=== PATIENT | male | born 1945 | race Caucasian/White ===

== ENCOUNTER → 2017-04-02 | Outpatient (CLI) | payer MEDICARE ==
[~2017-04-02] MED LIST: AC500T PO; ACET500L36 PO; CARB400T4 PO; HYDR-3583 PO; HYDR1TAB PO; LEVE100015 PO; SULF1TAB38 PO
--- NOTE | 2017-04-02 20:42 | Diagnostic Imaging Report ---
INDICATION: Facial trauma. Fall. FINDINGS: There is no fracture seen in the mandible. The posterior aspect of the mandibular head on both sides is not well included on this exam as well as minimal portion of the undersurface of the mandibular angle. There are multiple missing teeth seen. IMPRESSION: No definite fracture identified. Dictated by: Dictated on workstation # [id number]
== END ==
LOC: RAD 09:30
PROVIDERS: ATTEND Internal Medicine
DX: S09.93XA Unspecified injury of face, initial encounter (principal); W19.XXXA Unspecified fall, initial encounter; Y99.8 Other external cause status
CPT/HCPCS: 70355

== ENCOUNTER → 2020-12-25 | Outpatient (CLI) | payer MEDICARE ==
--- NOTE | 2020-12-25 09:53 | Diagnostic Imaging Report ---
INDICATION: Postmenopausal screening COMPARISON: Baseline FINDINGS: AP Spine L1-L4: [BMD (g/cm2): 0.594] [T-Score: -5.4] [Z-Score: -4.5] [BMD Previous: NA] [BMD % Change: NA] LT Hip Neck: [BMD (g/cm2): 0.710] [T-Score: -2.8] [Z-Score: -1.1] LT Hip Total: [BMD (g/cm2):0.756] [T-Score:-2.4] [Z-Score: -1.2] [BMD Previous: NA] [BMD % Change: NA] RT Hip Neck: [BMD (g/cm2):0.669] [T-Score:-3.1] [Z-Score:-1.4] RT Hip Total: [BMD (g/cm2):0.737] [T-score:-2.5] [Z-Score:-1.3] [BMD Previous:NA] [BMD % Change:NA] *Indicates significant change from prior examination based on 95% confidence level. World Health Organization criteria for BMD interpretation classify patients as Normal (T-score at or above -1.0), Osteopenic (T-score between -1.0 and -2.5) or Osteoporotic (T-score at or below -2.5). LIMITATIONS AND MODIFICATION: None. FRACTURE RISK (FRAX SCORE): The ten year probability of (%): Major Osteoporotic Fracture: [18.6] Hip Fracture: [8.5] IMPRESSION: 1. Osteoporosis. 2. Baseline examination. 3. See below National Osteoporosis Foundation guidelines on when to potentially initiate pharmacologic therapy. Based on the National Osteoporosis Foundation Guidelines, pharmacologic treatment should be initiated in any of the following, unless clinical conditions suggest otherwise: * Any patient with prior fragility fracture of the hip or vertebrae. A spine fracture indicates 5X risk for subsequent spine fracture and 2X risk for subsequent hip fracture. * Osteoporosis (T-score <-2.5). * Postmenopausal women and men age 50 and older with low bone mass/osteopenia (T-score between -1.0 and -2.5) by DXA and 10-year major osteoporotic fracture greater than 20% or a 10-year probability of hip fracture greater than 3%. These fracture risks are supplied above in the FRAX score, if applicable. * Clinician judgement and/or patient preferences may indicate treatment for people with 10-year fracture probabilities above or below these levels. Dictated by: Dictated on workstation # [id number]
== END ==
LOC: RAD 08:30
PROVIDERS: ATTEND Internal Medicine
DX: Z13.820 Encounter for screening for osteoporosis (principal); M81.0 Age-related osteoporosis without current pathological fracture; M40.204 Unspecified kyphosis, thoracic region
CPT/HCPCS: 77080

== ENCOUNTER 2021-01-08 09:41 | Outpatient (CLI) | payer MEDICARE ==
[~2021-01-08] VITALS: Ht 160 cm; Wt 69.5 kg
[2021-01-08] MEDS ORDERED: ZOLEDRONATE (RECLAST) 5 MG/100 ML IV ONE (10:00)
[2021-01-08 11:10] VITALS: BP 145/71
[2021-01-08] MEDS ORDERED: TMSL.4C PO (17:20)
[2021-01-08] MEDS ORDERED: OXYB10TA29 PO (17:20)
[2021-01-08] MEDS ORDERED: LEVE10006 PO (17:20)
[2021-01-08] MEDS ORDERED: CARB400T8 PO (17:20)
== END 2021-01-08 11:10 | disposition home or self-care (01) ==
LOC: SDC 09:41
PROVIDERS: ATTEND Nurse Practitioner Family
DX: M81.0 Age-related osteoporosis without current pathological fracture (principal)
CPT/HCPCS: 96365

== ENCOUNTER 2021-01-11 08:03 | Emergency (ER) | payer MEDICARE ==
[~2021-01-11] VITALS: Ht 160 cm; Wt 68.0 kg
[~2021-01-11 08:03] MED LIST changes: +CARB400T8 PO; +LEVE10006 PO; +OXYB10TA29 PO; +TMSL.4C PO
[2021-01-11 08:29] VITALS: BP 178/95
[2021-01-11] MEDS ORDERED: KETOROLAC 30 MG/ML VIAL IM ONE (09:30)
[2021-01-11 09:33] LABS: BILIRUBIN,URINE NEGATIVE (NEGATIVE); CLARITY,URINE CLEAR; COLOR,URINE YELLOW; GLUCOSE, URINE (UA) NEGATIVE (NEGATIVE); KETONES,URINE NEGATIVE (NEGATIVE); LEUKOCYTE ESTERASE ,URINE NEGATIVE (NEGATIVE); NITRITE,URINE NEGATIVE (NEGATIVE); PROTEIN,URINE NEGATIVE (NEGATIVE)
[2021-01-11 09:38] LABS: BACTERIA,URINE NEGATIVE /HPF; WBC,URINE RARE /HPF
--- NOTE | 2021-01-11 09:47 | ED General ---
General Chief Complaint: Head/Cervical Problems Stated Complaint: HEAD PRESSURE,BODY ACHES Nursing Triage Note: PT REPORTS 4WKS AGO HE HAD AN ANNUAL PHYSICAL, HIS PCM ORDERED A BONE DENSITY TEST. PT WAS THEN GIVEN A "RECLAST" INFUSION ON THURSDAY AND THURSDAY MORNING BEGAN FEELING ALL THE ADVERSE SYMPTOMS OF SAID INFUSION. PT REPORTS A HEADACHE IN OCCIPITAL LOBE THAT DOES NOT RADIATE AND RATES THAT PAIN AT A 8/10. PT HAS HAD BOTH ROUNDS OF MODERNA VACCINE. NKDA. Source of Information: Patient Exam Limitations: No Limitations History of Present Illness Date Seen by Provider: Jan 11, 2021 Allergies and Home Medications Allergies Coded Allergies: No Known Drug Allergies (Unverified , 04/02/11) Home Medications Carbamazepine 400 Mg Tab.er.12h, 400 MG PO BID, (Reported) Levetiracetam 1,000 Mg Tablet, 1,500 MG PO BID, (Reported) TAKES ONE AND A HALF 1000 MG TABS FOR 1500 MG DOSE TWICE DAILY Oxybutynin Chloride 10 Mg Tab.er.24, 10 MG PO DAILY, (Reported) Tamsulosin HCl 0.4 Mg Cap, 0.4 MG PO DAILY, (Reported) Past Kpwyisc-Eukmdd-Rphqnk Hx Patient Social History Tobacco Use?: No Smoking Status: Never a Smoker Substance use?: No Pt feels they are or have been: No Immunizations Up To Date Tetanus Booster (TDap): Unknown First/Initial COVID19 Vaccinat: JUN 2019 Second COVID19 Vaccination Bebo: JULY 2019 COVID19 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: MODERNA Seasonal Allergies Seasonal Allergies: No Past Medical History Surgeries: Yes Eye Surgery Respiratory: No 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 0oz. 77.165737xl; 26.00 BMI Method:Stated Progress/Results/Core Measures Suspected Sepsis SIRS Temperature: Pulse: 90 Respiratory Rate: 12 Blood Pressure 178 /95 Mean: 122 Results/Orders Lab Results Laboratory Tests Test 01/11/21 07:25 01/11/21 08:25 Range/Units Urine Color YELLOW Urine Clarity CLEAR Urine pH 7.0 5-9 Urine Specific [place] 1.010 L 1.016-1.022 Urine Protein NEGATIVE NEGATIVE Urine Glucose (UA) NEGATIVE NEGATIVE Urine Ketones NEGATIVE NEGATIVE Urine Nitrite NEGATIVE NEGATIVE Urine Bilirubin NEGATIVE NEGATIVE Urine Urobilinogen 0.2 < = 1.0 MG/DL Urine Leukocyte Esterase NEGATIVE NEGATIVE Urine RBC (Auto) NEGATIVE NEGATIVE Urine RBC NONE /HPF Urine WBC RARE /HPF Urine Squamous Epithelial Cells NONE /HPF Urine Crystals NONE /LPF Urine Bacteria NEGATIVE /HPF Urine Casts NONE /LPF Urine Mucus NEGATIVE /LPF Urine Culture Indicated NO Influenza Type A (RT-PCR) Not Detected Not Detecte Influenza Type B (RT-PCR) Not Detected Not Detecte SARS-CoV-2 RNA (RT-PCR) Not Detected Not Detecte My Orders Orders - ROSETTE MIDDLETON MD Covid 19 Inhouse Test (01/11/21 08:06) Influenza A And B By Pcr (01/11/21 08:06) Ua Culture If Indicated (01/11/21 09:19) Ketorolac Injection (Toradol Injection) (01/11/21 09:30) Medications Given in ED Current Medications Medications Dose Ordered Sig/Murphy Route Start Time Stop Time Status Last Admin Dose Admin Ketorolac Tromethamine 30 mg ONCE ONCE IM 01/11/21 09:30 01/11/21 09:31 DC 01/11/21 09:25 30 MG Vital Signs/I&O 01/11/21 08:29 Temp 37.1 Pulse 90 Resp 12 B/P (MAP) 178/95 (122) Pulse Ox 100 O2 Delivery Room Air Capillary Refill : Less Than 3 Seconds Blood Pressure Mean: 122 Departure Impression Primary Impression: Acute headache Qualified Codes: R51.9 - Headache, unspecified Additional Impression: Myalgia Disposition: 01 HOME, SELF-CARE Condition: Improved Departure-Patient Inst. Decision time for Depature: 09:45 Referrals: JAMES VILCHIS DO (PCP/Family) Primary Care Physician Patient Instructions: Headache, Adult Add. Discharge Instructions: Your symptoms may be due to adverse effects of the Reclast injection. You may use naproxen (Aleve) up to 500 mg twice daily and Tylenol (acetaminophen) for pain. NSAID medications such as naproxen, ibuprofen, etc. should only be used for short-term relief of pain for a few days at a time. Drink plenty of clear liquids to stay well-hydrated. Continue your other prescribed medications as previously directed. Call with questions or concerns. Return to the ER if you have any worsening of symptoms. All discharge instructions reviewed with patient and/or family. Voiced understanding. ROSETTE MIDDLETON MD Jan 11, 2021 09:46
== END 2021-01-11 10:03 | disposition home or self-care (01) ==
LOC: EDUNIT# 08:03 → ER 08:05
DX: M79.10 Myalgia, unspecified site (principal); G40.909 Epilepsy, unspecified, not intractable, without status epilepticus; Z79.899 Other long term (current) drug therapy; Z20.822 Contact with and (suspected) exposure to COVID-19
CPT/HCPCS: 81000; 87636; 99282

== ENCOUNTER 2021-04-06 05:04 | Emergency (ER) | payer MEDICARE ==
[~2021-04-06] VITALS: Ht 166 cm; Wt 68.9 kg
[2021-04-06 05:06] VITALS: BP 148/111
--- NOTE | 2021-04-06 05:13 | ED GU-Male ---
General Stated Complaint: CAN'T URINATE Source: patient History of Present Illness Date Seen by Provider: Apr 06, 2021 Time Seen by Provider: 05:08 Initial Comments PT ARRIVES VIA EMS FROM HOME PT STATES HE HAS NOT BEEN ABLE TO URINATE SINCE 2099 TONIGHT PT WITH HISTORY OF PROSTATE PROBLEMS WELL OVERACTIVE BLADDER--SEES DR. GROSSMAN. C/O LOWER ABDOMINAL PRESSURE NO FEVER NO NAUSEA/VOMITING PCP; UROLOGIST: DR. GROSSMAN Allergies and Home Medications Allergies Coded Allergies: No Known Drug Allergies (Unverified , 04/02/11) Patient Home Medication List Home Medication List Reviewed: Yes Carbamazepine (Carbamazepine ER) 400 Mg Tab.er.12h, 400 MG PO BID, (Reported) Entered as Reported by: CHRIS LEON on 01/08/21 1720 Levetiracetam (Levetiracetam) 1,000 Mg Tablet, 1,500 MG PO BID, (Reported) Entered as Reported by: CHRIS LEON on 01/08/21 1720 Oxybutynin Chloride (Oxybutynin Chloride ER) 10 Mg Tab.er.24, 10 MG PO DAILY, (Reported) Entered as Reported by: CHRIS LEON on 01/08/21 1720 Tamsulosin HCl (Flomax) 0.4 Mg Cap, 0.4 MG PO DAILY, (Reported) Entered as Reported by: CHRIS LEON on 01/08/21 1720 Review of Systems Review of Systems Constitutional: no symptoms reported Genitourinary: see HPI Past Smvtmfg-Ldkkxc-Nfygbq Hx Immunizations Up To Date Tetanus Booster (TDap): Unknown First/Initial COVID19 Vaccinat: JUN 2019 Second COVID19 Vaccination Bebo: JULY 2019 Seasonal Allergies Seasonal Allergies: No Past Medical History Surgeries: Yes Eye Surgery Respiratory: No 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 0oz. 77.276603sj; 26.00 BMI Method:Stated General Appearance: WD/WN, no apparent distress, thin Gastrointestinal: soft, tenderness, other (BLADDER DISTENDED TO 1 FB BELOW UMBILICUS, WITH MILD TENDERNESS) Back: no CVA tenderness Neurologic/Psychiatric: no motor/sensory deficits, alert, normal mood/affect, oriented x 3 Skin: normal color, warm/dry Progress/Results/Core Measures Suspected Sepsis SIRS Temperature: Pulse: Respiratory Rate: Blood Pressure / Mean: Results/Orders Lab Results Laboratory Tests Test 04/06/21 05:21 Range/Units Urine Color YELLOW Urine Clarity CLEAR Urine pH 5.5 5-9 Urine Specific [place] 1.020 1.016-1.022 Urine Protein NEGATIVE NEGATIVE Urine Glucose (UA) NEGATIVE NEGATIVE Urine Ketones NEGATIVE NEGATIVE Urine Nitrite NEGATIVE NEGATIVE Urine Bilirubin NEGATIVE NEGATIVE Urine Urobilinogen 0.2 < = 1.0 MG/DL Urine Leukocyte Esterase NEGATIVE NEGATIVE Urine RBC (Auto) NEGATIVE NEGATIVE Urine RBC 0-2 /HPF Urine WBC NONE /HPF Urine Squamous Epithelial Cells NONE /HPF Urine Crystals NONE /LPF Urine Bacteria NEGATIVE /HPF Urine Casts NONE /LPF Urine Mucus NEGATIVE /LPF Urine Culture Indicated NO My Orders Orders - KEVIN FOREMAN DO Catheter(Urinary) Insert & Ass , (04/06/21 05:08) Ua Culture If Indicated (04/06/21 05:08) Catheter(Urinary) Insert & Ass 03,15 (04/06/21 05:15) Vital Signs/I&O 04/06/21 05:06 Temp 36.9 Pulse 109 Resp 22 B/P (MAP) 148/111 (123) Pulse Ox 100 Capillary Refill : Progress Note : Progress Note CATHETER PLACED WITH IMMEDIATE RETURN OF URINE--CLAMPED AT 700 ML DRAINED AN ADDITIONAL 300 + ML PRIOR TO DISMISSAL, FOR TOTAL OF >1000 ML CONVERTED TO LEG BAG PRIOR TO DISMISSAL AND INSTRUCTED ON USE Departure Impression Primary Impression: Acute urinary retention Disposition: 01 HOME, SELF-CARE Condition: Improved Departure-Patient Inst. Decision time for Depature: 06:15 Referrals: JAMES VILCHIS DO (PCP/Family) Primary Care Physician ELIUD GROSSMAN MD Patient Instructions: Urinary Retention (DC) Add. Discharge Instructions: ROUTINE [facility] CARE CONTINUE YOUR REGULAR MEDICATIONS PRESCRIBED FOLLOW UP WITH DR. GROSSMAN IN 2-3 DAYS FOR FURTHER CARE KEVIN FOREMAN DO Apr 06, 2021 05:13
[2021-04-06 05:33] LABS: BILIRUBIN,URINE NEGATIVE (NEGATIVE); CLARITY,URINE CLEAR; COLOR,URINE YELLOW; GLUCOSE, URINE (UA) NEGATIVE (NEGATIVE); KETONES,URINE NEGATIVE (NEGATIVE); LEUKOCYTE ESTERASE ,URINE NEGATIVE (NEGATIVE); NITRITE,URINE NEGATIVE (NEGATIVE); PH,URINE 5.5 (5-9); PROTEIN,URINE NEGATIVE (NEGATIVE)
[2021-04-06 05:57] LABS: BACTERIA,URINE NEGATIVE /HPF; RBC,URINE 0-2 /HPF
== END 2021-04-06 06:37 | disposition home or self-care (01) ==
LOC: EDUNIT# 05:04 → ER 05:06
DX: R33.9 Retention of urine, unspecified (principal); G40.909 Epilepsy, unspecified, not intractable, without status epilepticus; Z79.899 Other long term (current) drug therapy
CPT/HCPCS: 81000; 99283

== ENCOUNTER 2022-05-17 12:59 | Emergency (ER) | payer MEDICARE ==
[~2022-05-17] VITALS: Ht 160 cm; Wt 70.3 kg
--- NOTE | 2022-05-17 13:52 | ED Head Injury ---
General Chief Complaint: Trauma-Non Activation Stated Complaint: FALL/LEFT EYEBROW LAC Nursing Triage Note: PT ARRIVED POV WITH COMPLAINTS OF A HEAD LAC ON THE LEFT EYEBROW AFTER HE FELL OUTSIDE TODAY. PT DENIES BEING ON BLOOD THINNERS AND LOC. Source: patient Exam Limitations: no limitations (SONIA FORDE APRN) History of Present Illness Date Seen by Provider: May 17, 2022 Time Seen by Provider: 13:30 Initial Comments 77 y/o male presents today following a fall with head injury. Pt states he was [place] his way [place] office when he tripped, fell forward and hit forehead on the concrete. He denies LOC, dizziness, syncope, chest pain, weakness. Has laceration to left eyebrow. He is uncertain when his last Tdap vaccine was. Denies any other injuries. Occurred: just prior to arrival Severity: mild Location: frontal Method of Injury: fell Loss of Consciousness: no loss of consciousness Associated Systoms: Denies Symptoms (SONIA FORDE APRN) Allergies and Home Medications Allergies Coded Allergies: No Known Drug Allergies (Unverified , 04/02/11) Patient Home Medication List Home Medication List Reviewed: Yes (SONIA FORDE APRN) Carbamazepine (Carbamazepine ER) 400 Mg Tab.er.12h, 400 MG PO BID, (Reported) Entered as Reported by: CHRIS LEON on 01/08/211719 Levetiracetam (Levetiracetam) 1,000 Mg Tablet, 1,500 MG PO BID, (Reported) Entered as Reported by: CHRIS LEON on 01/08/211719 Oxybutynin Chloride (Oxybutynin Chloride ER) 10 Mg Tab.er.24, 10 MG PO DAILY, (Reported) Entered as Reported by: CHRIS LEON on 01/08/211719 Tamsulosin HCl (Flomax) 0.4 Mg Cap, 0.4 MG PO DAILY, (Reported) Entered as Reported by: CHRIS LEON on 01/08/211719 Review of Systems Review of Systems Constitutional: no symptoms reported Eyes: No Symptoms Reported Ears, Nose, Mouth, Throat: no symptoms reported Respiratory: no symptoms reported Cardiovascular: no symptoms reported Gastrointestinal: no symptoms reported Musculoskeletal: no symptoms reported Skin: other (laceration to left eyebrow) Psychiatric/Neurological: No Symptoms Reported Endocrine: No Symptoms Reported Hematologic/Lymphatic: No Symptoms Reported (SONIA FORDE APRN) Past Hrbolub-Umtjua-Xvyrop Hx Patient Social History Tobacco Use?: No Substance use?: No Alcohol Use?: No (SONIA FORDE APRN) Immunizations Up To Date Tetanus Booster (TDap): Unknown Influenza Vaccine Up-to-Date: Yes; Up-to-Date First/Initial COVID19 Vaccinat: 2020 Second COVID19 Vaccination Bebo: 2020 Third COVID19 Vaccination Date: 2020 (SONIA FORDE APRN) Seasonal Allergies Seasonal Allergies: No (SONIA FORDE APRN) Past Medical History Surgeries: Yes Eye Surgery Respiratory: No 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 0oz. 77.767504nh; 27.00 BMI Method:Stated General Appearance: WD/WN, no apparent distress HEENT: PERRL/EOMI, normal ENT inspection, TMs normal, pharynx normal Neck: non-tender, full range of motion, supple, normal inspection Cardiovascular: normal peripheral pulses, no edema, no gallop, no murmur, tachycardia Respiratory: chest non-tender, lungs clear, normal breath sounds, no respiratory distress Gastrointestinal: normal bowel sounds, non tender, soft, no organomegaly Back: normal inspection, no vertebral tenderness Extremities: normal range of motion, non-tender, normal inspection, no pedal edema Psychiatric: alert, oriented x 3 Crainal Nerves: normal hearing, normal speech, PERRL Coordination/Gait: normal finger to nose, normal gait Motor/Sensory: no motor deficit, no sensory deficit Skin: normal color, warm/dry, other (2 cm laceration to left eyebrow) Lymphatic: no adenopathy (SONIA FORDE APRN) Procedures/Interventions Wound Location: Face (left eyebrow) Wound's Depth, Shape: linear Wound Explored: clean Betadine Prep?: Yes Anesthesia: 1% Lidocaine (2% lidocaine used) Volume Anesthetic (ccs): 1 Suture: Ethlion Suture Size: 5-0 Number of Sutures: 3 (SONIA FORDE APRN) Progress/Results/Core Measures Results/Orders Blood Pressure Mean: 105 Progress Progress Note : Time: 15:59 Progress Note 1559: Discussed CT head findings with Dr Schreiber and then Dr Angel. Stanley recommends repeat CT at 1999, if no change, may discharge patient home 2030: Notified Dr Angel that there was no change on repeat CT head. Pt bouchra rologically intact, will discharge home. (SONIA FORDE APRN) Diagnostic Imaging Diagonstic Imaging: CT Plain Films/CT/US/NM/MRI: facial bones, c-spine, head Comments CT head, Cspine, Facial bones: Impression: 1. Small focal area of high attenuation in the high right frontal lobe which is difficult to definitively place as intra-axial versus extra-axial. This could relate to a small amount of acute blood product and may relate to a cortical contusion. There is no otherwise identified potential abnormal extra-axial blood product. Short-term follow-up is recommended. 2. 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 3. Cerebral and cerebellar volume loss. 4. No identified acute maxillofacial bone fracture. 5. No identified acute fracture of the cervical spine. Repeat CT head at 2006: IMPRESSION: 1. Stable small focus of hyperdensity involving the medial right frontal lobe with considerations as above. 2. No new acute intracranial abnormality or other adverse interval change is seen when compared to earlier the same day. Continued follow-up is advised. 3. 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 4. Intracranial and right orbital metallic foreign bodies are identified. MRI should not be performed. Reviewed: Reviewed/Discussed (SONIA FORDE APRN) Departure Impression Primary Impression: Fall Additional Impressions: Contusion of head Laceration of eyebrow, left Disposition: HOME, SELF-CARE Condition: Stable Departure-Patient Inst. Decision time for Depature: 15:34 (SONIA FORDE APRN) Referrals: JAMES VILCHIS DO (PCP/Family) Primary Care Physician Patient Instructions: Laceration Repair With Stitches ED, Preventing Falls in Older Adults Add. Discharge Instructions: Do not get sutures wet for 24 hours. Keep clean and dry. Tylenol and ice as needed. Return in 5-7 days for suture removal. Follow up with PCP on Thursday05/20/22 All discharge instructions reviewed with patient and/or family. Voiced understanding. ATTENDING PHYSICIAN NOTE: I was physically present as attending physician in the emergency department d uring the care of this patient. I discussed radiologic findings and the plan of care with Sonia Forde, [place]. We discussed the case with Dr. Angel, general surgeon on trauma call, regarding plan of care. Repeat CT scan at 4 hours was determined most appropriate for this patient and his circumstance. Patient's repeat CT was unchanged and he had no new symptoms. He was allowed discharge with return precautions. I did not personally interview or examine this patient. (ROSETTE SCHREIBER MD) SONIA FORDE APRN May 17, 2022 13:52 ROSETTE SCHREIBER MD May 20, 2022 14:36
[2022-05-17] MEDS ORDERED: TETANUS,DIPTH,PERTUSS P/F (BOOSTRIX) 0.5 ML VIAL IM ONE (14:00)
[2022-05-17] MEDS ORDERED: LIDOCAINE PF 2% 5 ML (XYLOCAINE) VIAL ONE (14:21)
--- NOTE | 2022-05-17 15:11 | Diagnostic Imaging Report ---
PROCEDURE: CT head, face, and cervical spine without contrast. TECHNIQUE: Multiple contiguous axial images were obtained through the head, neck, and facial bones without the use of intravenous contrast. Sagittal and coronal reformations through the cervical spine and facial bones were also performed. Auto Exposure Controls were utilized during the CT exam to meet ALARA standards for radiation dose reduction. Date: May 17, 2022. Indication: 77-year-old male, head, face, and neck pain. Fall. Laceration in the region of the left eyebrow. Comparison: CT head, face, and cervical spine March 24, 2017. Findings: There is a long-standing defect in the right frontal bone which potentially may be procedurally related. There is no identified acute fracture of the skull. There are findings of encephalomalacia in the right anterior frontal lobe. There is proportional prominence of the ventricles and additional CSF spaces consistent with moderate cerebral volume loss. There is also volume loss of the cerebellum. There is a small focal area of high attenuation in the high right frontal lobe on axial image 50. This is new since March 24, 2017. This may reflect a small amount of acute blood product. This could relate to a cortical contusion. This also may be extra-axial in location. There is no otherwise identified potential extra-axial blood product. There is no mass effect. There is no midline shift. The temporomandibular joints are normally aligned. The mandible is intact. There is no identified displaced nasal bone fracture. There is deviation of the bony nasal septum off midline. There is high attenuation material in the medial aspect of the right orbit which is likely procedurally related. There are additional procedural related changes in the right orbit. There is no identified acute maxillofacial bone fracture. The paranasal sinuses, mastoid air cells, and middle ears are well-aerated. There is pneumatization of the petrous apices. There is no identified retro-orbital hematoma. There is a skin defect superior to the left orbit consistent with site of soft tissue injury without identified foreign body. There is no identified facet joint subluxation or dislocation. There are facet degenerative changes of the cervical spine. There is exaggeration of the normal cervical lordosis. There are multilevel advanced disc degenerative changes of the cervical spine. There is no identified asymmetric widening of the cervical disc spaces. There is no prominent prevertebral soft tissue swelling. There is no identified acute fracture of the cervical spine. The visualized portions of the lung apices are clear. There are carotid vascular calcifications bilaterally. Impression: 1. Small focal area of high attenuation in the high right frontal lobe which is difficult to definitively place as intra-axial versus extra-axial. This could relate to a small amount of acute blood product and may relate to a cortical contusion. There is no otherwise identified potential abnormal extra-axial blood product. Short-term follow-up is recommended. 2. 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 3. Cerebral and cerebellar volume loss. 4. No identified acute maxillofacial bone fracture. 5. No identified acute fracture of the cervical spine. Dictated by: Dictated on workstation # [id number]
[2022-05-17] MEDS ORDERED: ACETAMINOPHEN 325 MG TABLET PO ONE (16:15)
--- NOTE | 2022-05-17 20:20 | Diagnostic Imaging Report ---
PROCEDURE: CT head without contrast. TECHNIQUE: Multiple contiguous axial images were obtained through the brain without the use of intravenous contrast. Auto Exposure Controls were utilized during the CT exam to meet ALARA standards for radiation dose reduction. INDICATION: Fall. Head injury. Follow-up cortical contusion. COMPARISON: Earlier the same day. FINDINGS: Small focus of focal cortical hyperdensity is identified involving the anterior medial margins of the right frontal lobe (image 48, series 2). This is stable in size and contour when compared to earlier the same day and could represent small focus of parenchymal hemorrhagic contusion. Small amount of overlying subarachnoid hemorrhage is also a consideration. There is no new mass effect or midline shift. Ventricles and cortical sulci are stable in size and contour. Area of encephalomalacia in the anterior right frontal lobe is also again identified. There is no new large area of loss of sanders-white matter junction differentiation to suggest new acute evolving territorial infarct. No new intra-axial or extra-axial intracranial hemorrhage is seen. Ventricles and cortical sulci are otherwise mildly diffusely prominent consistent with age-related parenchymal volume loss. 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 There is metallic foreign body within the medial right orbit. Small metallic foreign body is also noted deep to the calvarium anteriorly, midline. Paranasal sinuses show minimal scattered mucosal thickening. Mastoid air cells are clear. IMPRESSION: 1. Stable small focus of hyperdensity involving the medial right frontal lobe with considerations as above. 2. No new acute intracranial abnormality or other adverse interval change is seen when compared to earlier the same day. Continued follow-up is advised. 3. 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 4. Intracranial and right orbital metallic foreign bodies are identified. MRI should not be performed. Dictated by: Dictated on workstation # [id number]
[2022-05-17 20:32] VITALS: BP 145/80
== END 2022-05-17 20:38 | disposition home or self-care (01) ==
LOC: EDUNIT# 12:59 → ER 13:01
DX: S01.112A Laceration without foreign body of left eyelid and periocular area, initial encounter (principal); Z23 Encounter for immunization; W01.198A Fall on same level from slipping, tripping and stumbling with subsequent striking against other object, initial encounter; Y92.242 Post office as the place of occurrence of the external cause
CPT/HCPCS: 70450; 70486; 72125; 90471; 90715; 93041

== ENCOUNTER 2022-05-23 14:04 | Emergency (ER) | payer MEDICARE ==
[~2022-05-23] VITALS: Ht 165 cm; Wt 63.0 kg
[2022-05-23 14:05] VITALS: BP 131/70
== END 2022-05-23 14:10 | disposition home or self-care (01) ==
LOC: EDUNIT# 14:04 → ER 14:05
DX: S01.81XD Laceration without foreign body of other part of head, subsequent encounter (principal); X58.XXXD Exposure to other specified factors, subsequent encounter

== ENCOUNTER 2022-08-21 05:36 | Outpatient (CLI) | payer MEDICARE ==
[~2022-08-21] VITALS: Ht 165.1 cm; Wt 61.4 kg
[2022-08-21] MEDS ORDERED: VITA400T9 PO (15:40)
[2022-08-21] MEDS ORDERED: ASCO100024 PO (15:40)
[2022-08-21] MEDS ORDERED: CHOL500061 PO (15:40)
[2022-08-21] MEDS ORDERED: MULT-1136 PO (15:40)
== END 2022-08-21 16:07 | disposition home or self-care (01) ==
LOC: PREOP 05:36
PROVIDERS: ATTEND Surgery
DX: Z01.818 Encounter for other preprocedural examination (principal)

== ENCOUNTER 2022-08-28 07:34 | Day surgery (SDC) | payer MEDICARE, MEDICAID ==
[2022-08-28] VITALS (11 sets, daily range): BP systolic 110–138; BP diastolic 54–78
[~2022-08-28] VITALS: Ht 165 cm; Wt 61.4 kg
[~2022-08-28 07:34] MED LIST changes: +ASCO100024 PO; +CHOL500061 PO; +MULT-1136 PO; +VITA400T9 PO
--- NOTE | 2022-08-28 07:58 | Progress Note-Pre Operative ---
Pre-Operative Progress Note Date H&P Reviewed: Aug 28, 2022 Time H&P Reviewed: 07:58 History & Physical: H&P Reviewed, Patient Examed, No changes noted Pre-Operative Diagnosis: cholelithiasis CITLALY DELUNA DO Aug 28, 2022 07:58
[2022-08-28] MEDS ORDERED: ceFAZolin INJECTION 2,000 MG in NS (IVPB) 50 ML IV ONE (08:00)
[2022-08-28] MEDS ORDERED: LACTATED RINGERS 1,000 ML IV PRN (08:00)
[2022-08-28] MEDS ORDERED: LIDOCAINE PF 2% 5 ML (XYLOCAINE) VIAL ONE (08:08)
[2022-08-28] MEDS ORDERED: ROCURONIUM 50 MG/5 ML (ZEMURON) VIAL IV ONE (08:08)
[2022-08-28] MEDS ORDERED: fentaNYL INJ 100 MCG/2 ML AMP ONE (08:08)
[2022-08-28] MEDS ORDERED: ONDANSETRON 4 MG/2 ML (SDV) Z0FRAN ONE (08:08)
[2022-08-28] MEDS ORDERED: proPOfol 200 MG/20 ML (DIPRIVAN) VIAL IV ONE (08:08)
[2022-08-28] MEDS ORDERED: LIDOCAINE/EPI 1%-1:100,000 (XYLOCAINE) 20ML ONE (08:19)
[2022-08-28] MEDS ORDERED: PHENYLEPHRINE 100 MCG/ML 10 ML (ANESTHESIA) SYR ONE (08:42)
[2022-08-28] MEDS ORDERED: NEOSTIGMINE 3 MG/3 ML VIAL ONE (09:12)
[2022-08-28] MEDS ORDERED: GLYCOPYRROLATE 0.2 MG/ML (ROBINUL) 2 ML VIAL ONE (09:12)
[2022-08-28] MEDS ORDERED: SEVOFLURANE (ULTANE) 15 ML INHAL SOLN ONE (09:16)
--- NOTE | 2022-08-28 09:24 | Progress Note-Post Operative ---
Post-Operative Progess Note Surgeon (s)/Shirt Marker (s) Surgeon CITLALY DELUNA DO Shirt Marker: Dr. Garrison to assist in retraction dissection and closure. Pre-Operative Diagnosis cholelithiasis Post-Operative Diagnosis cholelithiasis, left hepatic cysts Procedure & Operative Findings Date of Procedure 08/28/22 Procedure Performed/Findings PROCEDURE: Laparoscopic cholecystectomy with intraoperative cholangiogram. COMPLICATIONS: None. PROCEDURE: The patient was taken to the operating suite and was prepped and draped in sterile fashion. A surgical pause was performed. Just superior to the umbilicus, a 12 mm incision was made. Dissection was taken down to the fascia, which was then scored and grasped with a Ted and the abdomen was then entered. A 0 Vicryl suture was placed in a lleyxa-or-ahjrw fashion and a Parker trocar was placed and secured. Pneumoperitoneum was achieved. A 5mm trochar place in the subxyphoid and 2 in the right upper quadrant. The gallbladder was enlarged then grasped and elevated. The cystic duct, and cystic artery were then dissected out. Clip was placed on the distal portion of the cystic duct which was then partially transected. An arrow catheter was inserted into the duct. The cholangiogram was then performed. No filing defects and contrast made its way into the duodenum. Catheter removed. Clips were placed on proximal portion of the cystic duct and then the duct was then transected. Clips were placed along the proximal and distal portion of the cystic artery which was then transected. Hook cautery was used to dissect the gallbladder from the gallbladder fossa achieving hemostasis. The gallbladder was placed in an Endobag and removed through the 12 mm trocar site. The abdomen was then reinspected. Noted large left hepatic cysts. Copious amounts of irrigation were used to irrigate the abdomen and there were no signs of active bleeding. Hemostasis had been achieved. The 12 mm fascial defect was then closed with 0 Vicryl suture that had been placed in a rukhjy-qj-[id number] fashion. The abdomen was then desufflated, the trocars were removed. The abdomen was then washed and dried. The skin was then closed using 4-0 Monocryl in a subcuticular fashion. The abdomen was washed and dried and Skin Affix was place over incisions. Patient tolerated the procedure well without any complications and was taken to the recovery room in stable condition. Anesthesia Type general Estimated Blood Loss Estimated blood loss (mL): minimal Specimens/Packing Specimens Removed gallbladder CITLALY DELUNA DO Aug 28, 2022 09:24
[2022-08-28] MEDS ORDERED: ACHD5005 PO (09:28)
[2022-08-28] MEDS ORDERED: DOCU-143 PO (09:28)
--- NOTE | 2022-08-28 09:29 | Discharge Inst-Simple/Standard ---
Discharge Inst-Standard Discharge Medications New, Converted or Re-Newed RX: Transmitted to Pharmacy Patient Instructions/Follow Up Plan of Care/Instructions/FU: 2 weeks Stanley Activity as Tolerated: No Discharge Diet: Regular Diet Other Inst to Patient Follow up Appt: Make appointment for 2 weeks. Instructions: No lifting greater than 10 pounds. No strenuous activity. May shower in 24 hours, no tub bath or soaking. Use incentive spirometer at home as directed. No Smoking Skin/Wound Care: You have special glue over incision, it will fall off on it's own. Symptoms to Report: Appetite Changes, Extremity Discoloration, Numbness/Tingling, Swelling Increased, Bleeding Excessive, Eyesight Changes, Pain Increased, Urine Color Change, Constipation(Persistent), Fever over 101 degree F, Pain/Pressure in chest, Urinating Difficulty, Cough Up/Vomit Blood, Heart Beat Irreg/Pounding, Pain/Pressure in jaw, Vaginal Bleeding Increase, Cramps in feet or legs, Lightheadedness, Pain/Pressure in shoulder, Diarrhea(Persistent), Memory Changes Suddenly, Questions/Concerns, Weight gain consecutive days, Dizziness/Fainting, Nausea/Vomiting, Shortness of Breath, Weight gain over 2 pounds. If eyes or skin turn yellow notify physician. If questions or concerns contact your physician Or seek help at emergency department. CITLALY DELUNA DO Aug 28, 2022 09:29
[2022-08-28] MEDS ORDERED: fentaNYL INJ 100 MCG/2 ML AMP IVP ONE (09:30)
[2022-08-28] MEDS ORDERED: ONDANSETRON 4 MG/2 ML (SDV) Z0FRAN IVP PRN (09:30)
--- NOTE | 2022-08-28 11:04 | Anesthesia-General Post-Op ---
General Patient Condition Mental Status/LOC: Same as Preop Cardiovascular: Satisfactory Nausea/Vomiting: Absent Respiratory: Satisfactory Pain: Controlled Complications: Absent Post Op Complications Complications None Follow Up Care/Instructions Patient Instructions None needed. Anesthesia/Patient Condition Patient Condition Patient is doing well, no complaints, stable vital signs, no apparent adverse anesthesia problems. No complications reported per nursing. UGO MIRELES CRNA Aug 28, 2022 11:03
--- NOTE | 2022-08-28 16:59 | Diagnostic Imaging Report ---
HISTORY: Laparoscopic cholecystectomy. TECHNIQUE: Intraoperative fluoroscopy was used for the patient's procedure. A total of 58 fluoroscopic images of the abdomen were saved. FLUOROSCOPY TIME: 10.4 seconds. COMPARISON: None. FINDINGS: Intraoperative fluoroscopy demonstrates contrast in the biliary system with no significant dilatation. Contrast flows into the duodenum. IMPRESSION: Intraoperative fluoroscopy was used for the patient's procedure. Dictated by: Dictated on workstation # [id number]
== END 2022-08-28 11:41 | disposition home or self-care (01) ==
LOC: SDC 07:34
PROVIDERS: ATTEND Surgery
DX: K80.10 Calculus of gallbladder with chronic cholecystitis without obstruction (principal); K76.89 Other specified diseases of liver; Z87.891 Personal history of nicotine dependence
CPT/HCPCS: 76000; 87081

== ENCOUNTER 2022-11-05 15:50 | Inpatient (IN) | payer MEDICARE, MEDICAID ==
[~2022-11-05] VITALS: Ht 175 cm; Wt 59.8 kg
[~2022-11-05 15:50] MED LIST changes: +ACHD5005 PO; +DOCU-143 PO
[2022-11-05] MEDS ORDERED: NS IV 1000 ML 1,000 ML IV STA ×2 (16:06→17:27)
--- NOTE | 2022-11-05 16:06 | ED Abdominal Pain ---
General Chief Complaint: Abdominal/GI Problems Stated Complaint: RIGHT SIDE PAIN Nursing Triage Note: PT AMB TO RM 6 PT CO OF R SIDED ABD PAIN. PT HAS LAB WORK DONE AND WAS SENT OUT TO ED BY DR ONTIVEROS OFFICE Source of Information: Patient Exam Limitations: No Limitations History of Present Illness Date Seen by Provider: Nov 05, 2022 Time Seen by Provider: 16:04 Initial Comments Patient Is a 77-year-old male who presents ED with right-sided abdominal pain. Patient states he had his gallbladder removed by Dr. Deluna August 28. Since the surgery he has had generalized abdominal pain worse in his right lower quadrant.. This pain started to increase over the past month. Pain is intermittent. Pain radiates across the abdomen but appears to be worse in his right lower quadrant. This pain is dull but does have intermittent sharp pain. Nausea without vomiting or diarrhea. States he does have a history of constipation. He reports eating prunes and taken a laxative with small string like bowel movements. History of colonoscopy in the past and states this was unremarkable. Denies any fever, chills, body aches, chest pain or shortness of breath. Had lab work drawn by Dr. Stafford recently and was recommended to come to the ED. Patient Was seen today for this pain and was found to be febrile and tachycardic concerning for potential appendicitis. Not eating or drinking as much. Patient reports frequent urination but states this is chronic. Denies dysuria, decreased urine output Allergies and Home Medications Allergies Uncoded Allergies: INFUSION FOR OSTEOPORSIS (Allergy, Unknown, 11/05/22) Patient Home Medication List Home Medication List Reviewed: Yes Ascorbic Acid (Vitamin C) 1,000 Mg Tablet, 1,000 MG PO DAILY, (Reported) Entered as Reported by: Dasia Foss on 08/21/22 1540 Carbamazepine (Carbamazepine ER) 400 Mg Tab.er.12h, 400 MG PO BID, (Reported) Entered as Reported by: CHRIS LEON on 01/08/21 1720 Cholecalciferol (Vitamin D3) (Vitamin D3) 125 Mcg (5000 Unit) Tab.rapdis, 125 MCG PO DAILY, (Reported) Entered as Reported by: Dasia Foss on 08/21/22 1540 Docusate Sodium (Colace) 100 Mg Capsule, 100 MG PO BID Prescribed by: CITLALY DELUNA on 08/28/22 0958 Hydrocodone/Acetaminophen (Hydrocodone-Acetamin 5-325 mg) 5 Mg-325 Mg Tablet, 1 EACH PO Q4H PRN for PAIN-MODERATE (5-7) Prescribed by: CITLALY DELUNA on 08/28/22927 Levetiracetam (Levetiracetam) 1,000 Mg Tablet, 1,500 MG PO BID, (Reported) Entered as Reported by: CHRIS LEON on 01/08/211719 Multivitamin (Multivitamin) 1 Each Tablet, 1 EACH PO DAILY, (Reported) Entered as Reported by: Dasia Foss on 08/21/22 154 Tamsulosin HCl (Flomax) 0.4 Mg Cap, 0.4 MG PO DAILY, (Reported) Entered as Reported by: CHRIS LEON on 01/08/211719 Vitamin E Mixed (Vitamin E) 400 Unit Tablet, 400 UNIT PO DAILY, (Reported) Entered as Reported by: Dasia Foss on 08/21/221539 Review of Systems Review of Systems Constitutional: No chills, No diaphoresis EENTM: No Eye Pain Respiratory: Denies Cough, Denies Orthopnea Cardiovascular: Denies Chest Pain Gastrointestinal: Abdominal Pain, Constipated, Nausea; Denies Vomiting Genitourinary: Denies Burning, Denies Discharge, Denies Drainage; Frequency Musculoskeletal: No back pain, No joint pain Skin: No change in color, No change in hair/nails All Other Systems Reviewed Negative Unless Noted: Yes Past Foyyrqw-Dxpvwu-Cadhlt Hx Patient Social History Tobacco Use?: No Substance use?: No Alcohol Use?: No Pt feels they are or have been: No Immunizations Up To Date Tetanus Booster (TDap): Less than 5yrs First/Initial COVID19 Vaccinat: 06/07 Second COVID19 Vaccination Bebo: 07/08 Third COVID19 Vaccination Date: 04/07 Seasonal Allergies Seasonal Allergies: Yes Past Medical History Surgeries: Yes (BRAIN SURGERY, HERNIA X2) Eye Surgery Respiratory: No Currently Using CPAP: No Currently Using BIPAP: No Cardiac: No Neurological: Yes (NO SEIZURES IN 15-20 YEARS) Seizure Disorder Reproductive Disorders: No Genitourinary: Yes (OVERACTIVE BLADDER) Prostate Problems Gastrointestinal: Yes Chronic Constipation, Hemorrhoids, Gall Bladder Disease Musculoskeletal: Yes Arthritis Endocrine: No HEENT: Yes Cataract Loss of Vision: Bilateral Hearing Impairment: Hard of Hearing Cancer: No Psychosocial: No Integumentary: Yes Psoriasis Blood Disorders: No Adverse Reaction/Blood Tranf: No Physical Exam Vital Signs Vital Signs - First Documented 11/05/22 11/05/22 15:57 16:00 Temp 38.0 Pulse 125 Resp 18 B/P (MAP) 144/87 (106) Pulse Ox 99 O2 Delivery Room Air Capillary Refill : Less Than 3 Seconds Height/Weight/BMI Height: 5'7" Weight: 170lbs. 0oz. 77.375243yk; 18.00 BMI Method:Estimated General Appearance: WD/WN, no apparent distress HEENT: PERRL/EOMI, normal ENT inspection, TMs normal, pharynx normal Neck: non-tender, full range of motion, supple, normal inspection Respiratory: chest non-tender, lungs clear, normal breath sounds, no respiratory distress, no accessory muscle use Cardiovascular: regular rate, rhythm, no edema, no gallop, no JVD Gastrointestinal: normal bowel sounds, soft, no organomegaly, no pulsatile mass, tenderness (Lower quadrant tenderness, right upper quadrant tenderness. Mild guarding right lower quadrant. Normal bowel sounds throughout) Extremities: normal range of motion, non-tender, normal inspection, no pedal edema Back: normal inspection, no CVA tenderness Neurologic/Psychiatric: manager concrete II-XII nml as tested, no motor/sensory deficits, alert, normal mood/affect, oriented x 3 Skin: normal color, warm/dry Focused Exam Lactate Level 11/05/22 16:00: Lactic Acid Level 1.29 Lactic Acid Level Laboratory Tests Test 11/05/22 16:00 Lactic Acid Level 1.29 MMOL/L (0.50-2.00) Procedures/Interventions Suture Size: 5-0 Progress/Results/Core Measures Results/Orders Lab Results Laboratory Tests Test 11/05/22 16:00 11/05/22 17:22 Range/Units White Blood Count 12.7 H 4.3-11.0 10^3/uL Red Blood Count 3.56 L 4.30-5.52 10^6/uL Hemoglobin 7.2 L 13.3-17.7 g/dL Hematocrit 25 L 40-54 % Mean Corpuscular Volume 71 L 80-99 fL Mean Corpuscular Hemoglobin 20 L 25-34 pg Mean Corpuscular Hemoglobin Concent 29 L 32-36 g/dL Red Cell Distribution Width 16.6 H 10.0-14.5 % Platelet Count 394 130-400 10^3/uL Mean Platelet Volume 8.3 L 9.0-12.2 fL Immature Granulocyte % (Auto) 1 % Neutrophils (%) (Auto) 88 H 42-75 % Lymphocytes (%) (Auto) 5 L 12-44 % Monocytes (%) (Auto) 5 0-12 % Eosinophils (%) (Auto) 1 0-10 % Basophils (%) (Auto) 0 0-10 % Neutrophils # (Auto) 11.2 H 1.8-7.8 10^3/uL Lymphocytes # (Auto) 0.7 L 1.0-4.0 10^3/uL Monocytes # (Auto) 0.7 0.0-1.0 10^3/uL Eosinophils # (Auto) 0.1 0.0-0.3 10^3/uL Basophils # (Auto) 0.1 0.0-0.1 10^3/uL Immature Granulocyte # (Auto) 0.1 0.0-0.1 10^3/uL Neutrophils % (Manual) 79 % Lymphocytes % (Manual) 5 % Monocytes % (Manual) 8 % Band Neutrophils 8 % Polychromasia SLIGHT Hypochromasia MODERATE Poikilocytosis SLIGHT Anisocytosis MODERATE Elliptocytes SLIGHT Schistocytes MODERATE Prothrombin Time 13.9 12.2-14.7 SEC INR Comment 1.1 0.8-1.4 Activated Partial Thromboplast Time 26 24-35 SEC Sodium Level 139 135-145 MMOL/L Potassium Level 4.1 3.6-5.0 MMOL/L Chloride Level 105 98-107 MMOL/L Carbon Dioxide Level 23 21-32 MMOL/L Anion Gap 11 5-14 MMOL/L Blood Urea Nitrogen 19 H 7-18 MG/DL Creatinine 0.76 0.60-1.30 MG/DL Estimat Glomerular Filtration Rate 91 BUN/Creatinine Ratio 25 Glucose Level 124 H 70-105 MG/DL Lactic Acid Level 1.29 0.50-2.00 MMOL/L Calcium Level 8.6 8.5-10.1 MG/DL Corrected Calcium 8.9 8.5-10.1 MG/DL Total Bilirubin 0.2 0.1-1.0 MG/DL Aspartate Amino Transf (AST/SGOT) 11 5-34 U/L Alanine Aminotransferase (ALT/SGPT) 12 0-55 U/L Alkaline Phosphatase 99 40-136 U/L Total Protein 6.6 6.4-8.2 GM/DL Albumin 3.6 3.2-4.5 GM/DL Lipase 15 8-78 U/L Urine Color YELLOW Urine Clarity CLEAR Urine pH 5.5 5-9 Urine Specific [place] 1.010 L 1.016-1.022 Urine Protein NEGATIVE NEGATIVE Urine Glucose (UA) NEGATIVE NEGATIVE Urine Ketones NEGATIVE NEGATIVE Urine Nitrite NEGATIVE NEGATIVE Urine Bilirubin NEGATIVE NEGATIVE Urine Urobilinogen 0.2 < = 1.0 MG/DL Urine Leukocyte Esterase NEGATIVE NEGATIVE Urine RBC (Auto) NEGATIVE NEGATIVE Urine RBC NONE /HPF Urine WBC NONE /HPF Urine Crystals PRESENT H /LPF Urine Amorphous Sediment FEW PRABHU URATES H /LPF Urine Bacteria NEGATIVE /HPF Urine Casts NONE /LPF Urine Mucus NEGATIVE /LPF Urine Culture Indicated NO My Orders Orders - ESCOBAR SKELTON Cbc With Automated Diff (11/05/22 16:02) Comprehensive Metabolic Panel (11/05/22 16:02) Lipase (11/05/22 16:02) Blood Culture (11/05/22 16:02) Lactic Acid Analyzer (11/05/22 16:02) Ua Culture If Indicated (11/05/22 16:02) Ct Abd/Pelv W (Appendicitis) (11/05/22 16:02) Ns Iv 1000 Ml (Sodium Chloride 0.9%) (11/05/22 16:06) Iohexol Injection (Omnipaque 350 Mg/Ml 1 (11/05/22 16:15) Received Contrast (Hold Metformin- Contr (11/05/22 16:15) Sodium Chloride Flush (Catheter Flush Sy (11/05/22 16:15) Blood Culture (11/05/22 16:10) Manual Differential (11/05/22 16:00) Type And Screen (11/05/22 16:31) Partial Thromboplastin Time (11/05/22 17:10) Protime With Inr (11/05/22 17:10) Piperacillin Sodium/Tazobactam (Zosyn Vi (11/05/22 17:30) Ns Iv 1000 Ml (Sodium Chloride 0.9%) (11/05/22 17:27) Ketorolac Injection (Toradol Injection) (11/05/22 18:00) Medications Given in ED Current Medications Medications Dose Ordered Sig/Murphy Route Start Time Stop Time Status Last Admin Dose Admin Iohexol 100 ml ONCE ONCE IV 11/05/22 16:15 11/05/22 16:16 DC 11/05/22 16:47 80 ML Ketorolac Tromethamine 30 mg ONCE ONCE IVP 11/05/22 18:00 11/05/22 18:01 DC 11/05/22 18:11 30 MG Piperacillin Sod/ Tazobactam Sod 4.5 gm/Sodium Chloride 100 ml @ 200 mls/hr ONCE ONCE IV 11/05/22 17:30 11/05/22 17:59 DC 11/05/22 17:42 200 MLS/HR Vital Signs/I&O 11/05/22 11/05/22 11/05/22 15:57 16:00 18:14 Temp 38.0 38.0 37.6 Pulse 125 125 123 Resp 18 18 18 B/P (MAP) 144/87 (106) 144/87 162/87 Pulse Ox 99 99 98 O2 Delivery Room Air Room Air Blood Pressure Mean: 106 Departure Communication (PCP) Patient had a cholecystectomy performed by Dr. Deluna on August 28. Since then he has had some generalized abdominal discomfort worse in the right lower quadrant. Had lab work drawn recently by Dr. Stafford and had abnormal lab work and was sent to the ED today for further evaluation. Concern for appendicitis. History of colonoscopy several years ago states unremarkable. Denies of any blood thinner use. Does take Tegretol for seizures with a history of brain surgery. Denies any recent seizures. Patient was tachycardic low-grade tem perature. Received Toradol started on liter fluid with sepsis work-up. Blood cultures pending. Normal lactic acid. Started on IV Zosyn concern for appendicitis versus colitis versus malignancy. He states he has been constipated has been using laxatives and eating prunes with very small bowel movements. Decreased oral intake. Patient does appear pale. CBC showed white blood count 12.7. Hemoglobin of 7.2 low hematocrit. Normal platelets. denies history of anemia. Chemistry was grossly unremarkable. Normal coags. CT abdomen and pelvis of the abdomen secondary to the right lower quadrant tenderness with guarding. Bowel sounds noted. CT abdomen and pelvis shows irregular wall thickening at the level of the cecum concern for colonic malignancy or nonspecific colitis. Very large volume colonic stool. Multiple low attenuation masses in the liver most of which are consistent with benign cyst. Peripheral lesion of the liver concerning for hemangioma. Further evaluation for dedicated liver mass. Questionable wall thickening of the proximal stomach. Patient was discussed with Dr. Deluna general surgeon. Recommended clear liquids and further evaluation for the colitis. Recommend antibiotics. Further work-up for malignancy as well. Patient was discussed with Dr. Gonzalez who accepts patient at this time. Dr. Deluna recommended getting a colonoscopy. Patient agrees with plan of action Impression Primary Impression: Colitis Disposition: ADMITTED INPATIENT Condition: Stable Admissions Decision to Admit Reason: Admit from ER (General) Decision to Admit/Date: Nov 05, 2022 Time/Decision to Admit Time: 17:53 Departure-Patient Inst. Referrals: JAMES STAFFORD DO (PCP/Family) Primary Care Physician ESCOBAR SKELTON Nov 05, 2022 16:06
[2022-11-05] MEDS ORDERED: IOHEXOL 350 MG/ML 100 ML (OMNIPAQUE 350) VIAL IV ONE (16:15)
[2022-11-05] MEDS ORDERED: HOLD METFORMIN - RECEIVED CONTRAST 20 ML VIAL IV SCH (16:15)
[2022-11-05] MEDS ORDERED: CATHETER FLUSH 10 ML SYR IV PRN (16:15)
[2022-11-05 16:20] LABS: BASOPHILS # (AUTO) 0.1 10^3/uL (0.0-0.1); BASOPHILS % (AUTO) 0 % (0-10); EOSINOPHILS # (AUTO) 0.1 10^3/uL (0.0-0.3); EOSINOPHILS % (AUTO) 1 % (0-10); HEMATOCRIT 25 % (40-54); HEMOGLOBIN 7.2 g/dL (13.3-17.7); LYMPHOCYTES # (AUTO) 0.7 10^3/uL (1.0-4.0); LYMPHOCYTES % (AUTO) 5 % (12-44); MEAN CORPUSCULAR HEMOGLOBIN 20 pg (25-34); MEAN CORPUSCULAR HGB CONC 29 g/dL (32-36); MEAN CORPUSCULAR VOLUME 71 fL (80-99); MEAN PLATELET VOLUME 8.3 fL (9.0-12.2); MONOCYTES # (AUTO) 0.7 10^3/uL (0.0-1.0); MONOCYTES % (AUTO) 5 % (0-12); NEUTROPHILS # (AUTO) 11.2 10^3/uL (1.8-7.8); NEUTROPHILS % (AUTO) 88 % (42-75); PLATELET COUNT 394 10^3/uL (130-400); WHITE BLOOD COUNT 12.7 10^3/uL (4.3-11.0)
[2022-11-05 16:36] LABS: ALBUMIN 3.6 GM/DL (3.2-4.5); POTASSIUM 4.1 MMOL/L (3.6-5.0)
[2022-11-05 16:37] LABS: CALCIUM 8.6 MG/DL (8.5-10.1)
[2022-11-05 16:39] LABS: TOTAL PROTEIN 6.6 GM/DL (6.4-8.2)
[2022-11-05 16:40] LABS: BILIRUBIN,TOTAL 0.2 MG/DL (0.1-1.0)
[2022-11-05 16:42] LABS: CREATININE SERUM 0.76 MG/DL (0.60-1.30)
[2022-11-05 16:43] LABS: BAND NEUTROPHILS 8 %; HYPOCHROMASIA MODERATE; LYMPHOCYTES % (MANUAL) 5 %; MONOCYTES % (MANUAL) 8 %; NEUTROPHILS % (MANUAL) 79 %; POIKILOCYTOSIS SLIGHT; POLYCHROMASIA SLIGHT
[2022-11-05 16:44] LABS: ANISOCYTOSIS MODERATE; ELLIPT/OVALOCYTES SLIGHT
[2022-11-05 16:45] LABS: SCHISTOCYTES MODERATE
--- NOTE | 2022-11-05 17:20 | Diagnostic Imaging Report ---
Procedure: CT abdomen and pelvis with contrast, rule out appendicitis. Technique: Multiple contiguous axial images were obtained through the abdomen and pelvis after the administration of intravenous contrast. All CT scans use one or more of the following dose optimizing techniques: automated exposure control, MA and/or KvP adjustment based on patient size and exam type or iterative reconstruction. Date: November 05, 2022. Indication: 77-year-old male, right lower quadrant abdominal pain. Comparison: None. Findings: The visualized portions of the lung bases are clear. The heart is not enlarged. There is no pericardial effusion. There are numerous low-attenuation lesions in the right and left lobes of the liver. These have internal attenuation values compatible with benign cysts. One of the lesions in the right lobe of the liver posteriorly on axial image 69 has some internal septations. There are subcentimeter low-attenuation liver lesions present which are too small to characterize. There is also a lesion in the left lobe of the liver with peripheral puddling type enhancement on axial image 60 likely reflecting hemangioma which measures 2.1 x 1.6 cm in size. Similar-appearing lesion is present in the liver on axial image 60, more laterally and posteriorly, which measures 2.6 x 1.1 cm in size. This lesion is not able to be definitively characterized as a peripheral puddling type appearance is not as prominent as the above-mentioned previous lesion. The gallbladder is surgically absent. There is no intrahepatic or extrahepatic bile duct dilation. The main pancreatic duct is not abnormally dilated. Evaluation of the pancreatic parenchyma is unremarkable. The spleen is normal in size. The adrenal glands are unremarkable. Unremarkable appearance of the renal parenchyma. The urinary collecting systems are not distended. There is no identified renal or ureteral stone. The urinary bladder is unremarkable. There is a very large volume colonic stool. There is abnormal irregular wall thickening in the region of the cecum. This is perhaps best demonstrated on axial image 103 and adjacent sequential images. There is fecalization of contents and small bowel compatible with slow intestinal transit. There are no grossly distended segments of small bowel. There is questionable wall thickening of the proximal stomach. There is no identified free intraperitoneal air. There is no identified drainable fluid collection. There is a small volume free fluid in the pelvis. There are atherosclerotic calcifications. There is no identified abnormally enlarged lymph node in the abdomen or pelvis which specifically meets CT size criteria for adenopathy. There is an L3 vertebral body hemangioma. There is no identified aggressive bone lesion or acute bony abnormality. Impression: 1. Abnormal irregular wall thickening at the level of the cecum concerning for colonic malignancy or nonspecific colitis. Workup for definitive diagnosis is recommended. 2. Very large volume colonic stool. 3. Multiple low-attenuation masses in the liver most of which are consistent with benign cyst. There are subcentimeter liver lesions present too small to characterize as well as a hemangioma in the left lobe of the liver. 4. Additional 2.6 x 1.1 cm lesion in the peripheral liver which may reflect a hemangioma although could not be definitively characterized. Further evaluation with dedicated liver mass protocol CT without and with intravenous contrast is recommended. 5. Questionable wall thickening of the proximal stomach. Nonspecific gastritis or malignancy are both considered. Dictated by: Dictated on workstation # [id number]
[2022-11-05 17:22] LABS: INR 1.1 (0.8-1.4); PROTHROMBIN TIME PATIENT 13.9 SEC (12.2-14.7)
[2022-11-05 17:28] LABS: BILIRUBIN,URINE NEGATIVE (NEGATIVE); CLARITY,URINE CLEAR; COLOR,URINE YELLOW; GLUCOSE, URINE (UA) NEGATIVE (NEGATIVE); KETONES,URINE NEGATIVE (NEGATIVE); LEUKOCYTE ESTERASE ,URINE NEGATIVE (NEGATIVE); NITRITE,URINE NEGATIVE (NEGATIVE); PH,URINE 5.5 (5-9); PROTEIN,URINE NEGATIVE (NEGATIVE)
[2022-11-05] MEDS ORDERED: PIPERACILLIN SODIUM/TAZOBACTAM 4.5 GM in NS (IVPB) 100 ML IV ONE (17:30)
[2022-11-05 17:50] LABS: BACTERIA,URINE NEGATIVE /HPF
[2022-11-05 17:51] LABS: AMORPHOUS SEDIMENT,UR FEW AMOR URATES /LPF
[2022-11-05] MEDS ORDERED: KETOROLAC 30 MG/ML VIAL IVP ONE (18:00)
[2022-11-05] MEDS ORDERED: morphine INJ 4 MG/ML 1 ML (VIAL/SYRINGE) IV PRN (19:00)
[2022-11-05] MEDS ORDERED: KETOROLAC 30 MG/ML VIAL IV PRN (19:00)
[2022-11-05 19:44] VITALS: BP 148/76
[2022-11-05] MEDS: LACTATED RINGERS 1,000 ML IV SCH (21:05)
[2022-11-05] MEDS: metroNIDAZOLE 500MG/100ML IVPB 100 ML IV SCH (21:05)
[2022-11-05] MEDS: cefTRIAXone 1 GM/NS 50 ML IVPB IV SCH ×2 (21:08)
[2022-11-05] MEDS: polyethylene glycoL POWDER 17 GM (MIRALAX) PACK PO SCH (21:43)
[2022-11-06] VITALS (9 sets, daily range): BP systolic 117–167; BP diastolic 60–76
[2022-11-06] MEDS: metroNIDAZOLE 500MG/100ML IVPB 100 ML IV SCH ×3 (03:57→19:38)
[2022-11-06] MEDS: LACTATED RINGERS 1,000 ML IV SCH ×3 (04:30→19:31)
[2022-11-06 05:39] LABS: BASOPHILS % (AUTO) 0 % (0-10); EOSINOPHILS # (AUTO) 0.1 10^3/uL (0.0-0.3); EOSINOPHILS % (AUTO) 1 % (0-10); HEMATOCRIT 21 % (40-54); LYMPHOCYTES # (AUTO) 0.5 10^3/uL (1.0-4.0); LYMPHOCYTES % (AUTO) 6 % (12-44); MEAN CORPUSCULAR HEMOGLOBIN 20 pg (25-34); MEAN CORPUSCULAR HGB CONC 28 g/dL (32-36); MEAN CORPUSCULAR VOLUME 71 fL (80-99); MONOCYTES # (AUTO) 0.6 10^3/uL (0.0-1.0); MONOCYTES % (AUTO) 7 % (0-12); NEUTROPHILS # (AUTO) 7.4 10^3/uL (1.8-7.8); NEUTROPHILS % (AUTO) 86 % (42-75); PLATELET COUNT 305 10^3/uL (130-400); WHITE BLOOD COUNT 8.6 10^3/uL (4.3-11.0)
[2022-11-06 05:47] LABS: POTASSIUM 3.7 MMOL/L (3.6-5.0)
[2022-11-06 05:53] LABS: CREATININE SERUM 0.63 MG/DL (0.60-1.30)
[2022-11-06] MEDS ORDERED: NS IV 500 ML 500 ML IV SCH (07:00)
--- NOTE | 2022-11-06 07:57 | Consultation - Surgery ---
MIREILLECITLALY 11/06/22 0757: History of Present Illness History of Present Illness Patient Consulted On(rg/time) 11/06/22 07:51 Time Seen by Provider: 07:19 History of Present Illness Patient presents to the ED with abdominal pain to his right lower quadrant, he says that he has had this pain off and on for a while and thought it was related to his gallbladder that he had removed prior by Dr. Deluna. He says that it started out as a hunger pain, he would get bloating and constipation but took laxatives and ate pruins and it would seem to help the pain go away. He says that he currently does not have any pain associated with it but when it gets bad, he rates it as a 6. He had a prior bowel blockage from a hernia that he said Dr. Allan took care of but he is unsure of what year this took place. He says that there is nothing that he does that makes it better or worse besides the laxatives and pruins when he gets constipated. Allergies and Home Medications Allergies Uncoded Allergies: INFUSION FOR OSTEOPORSIS (Allergy, Unknown, 11/05/22) Patient Home Medication List Acetaminophen (Tylenol 8 Hour) 650 Mg Tablet.er, 1,300 MG PO Q8H, (Reported) Entered as Reported by: MALINDA ROBIN on 11/06/22 1013 Last Action: Held Ascorbic Acid (Vitamin C) 1,000 Mg Tablet, 1,000 MG PO DAILY, (Reported) Entered as Reported by: Dasia Foss on 08/21/221539 Last Action: Held Carbamazepine (Carbamazepine ER) 400 Mg Tab.er.12h, 400 MG PO BID WITH MEALS, (Reported) Entered as Reported by: CHRIS LEON on 01/08/211719 Last Action: Converted Cholecalciferol (Vitamin D3) (Vitamin D3) 125 Mcg (5000 Unit) Tab.rapdis, 125 MCG PO DAILY, (Reported) Entered as Reported by: Dasia Foss on 08/21/221539 Last Action: Held Levetiracetam (Levetiracetam) 1,000 Mg Tablet, 1,500 MG PO Q12H, (Reported) Entered as Reported by: CHRIS LEON on 01/08/211719 Last Action: Continued Multivitamin (Multivitamin) 1 Each Tablet, 1 EACH PO DAILY, (Reported) Entered as Reported by: Dasia Foss on 08/21/22 154 Last Action: Held Simethicone (Gas-X Ultra Strength) 180 Mg Capsule, 180 MG PO Q8H PRN for GAS, (Reported) Entered as Reported by: MALINDA ROBIN on 11/06/22 1013 Last Action: Held Tamsulosin HCl (Flomax) 0.4 Mg Cap, 0.4 MG PO 1800 W/MEAL, (Reported) Entered as Reported by: CHRIS LEON on 01/08/21 1720 Last Action: Continued Vitamin E Mixed (Vitamin E) 400 Unit Tablet, 400 UNIT PO DAILY, (Reported) Entered as Reported by: Dasia Foss on 08/21/221539 Last Action: Held Discontinued Medications Docusate Sodium (Colace) 100 Mg Capsule, 100 MG PO BID Discontinued Reason: No Longer Taking Prescribed by: CITLALY DELUNA on 08/28/22927 Last Action: Discontinued Hydrocodone/Acetaminophen (Hydrocodone-Acetamin 5-325 mg) 5 Mg-325 Mg Tablet, 1 EACH PO Q4H PRN for PAIN-MODERATE (5-7) Discontinued Reason: No Longer Taking Prescribed by: CITLALY DELUNA on 08/28/22927 Last Action: Discontinued Past Zsfuwja-Xmyewa-Aijakm Hx Patient Social History Smoking Status: Former Smoker Former Smoker, Quit: May 18, 1982 Type Used: Cigars, Cigarettes, Pipe 2nd Hand Smoke Exposure: No Recent Hopitalizations: No Alcohol Use?: No Immunizations Up To Date Tetanus Booster (TDap): Less than 5yrs Date of Pneumonia Vaccine: Jan 16, 2011 Date of Influenza Vaccine: Feb 17, 2022 Seasonal Allergies Seasonal Allergies: Yes Surgeries History of Surgeries: Yes (BRAIN SURGERY, HERNIA X2) Surgeries: Abdominal (bilateral hernia repairs), Eye Surgery, Neurological (brain surgery) Respiratory History of Respiratory Disorde: No Cardiovascular History of Cardiac Disorders: No Neurological History of Neurological Disord: Yes (NO SEIZURES IN 15-20 YEARS) Neurological Disorders: Seizure Disorder Reproductive System Hx Reproductive Disorders: No Genitourinary History of Genitourinary Disor: Yes (OVERACTIVE BLADDER) Genitourinary Disorders: Prostate Problems Gastrointestinal History of Gastrointestinal Di: Yes Gastrointestinal Disorders: Chronic Constipation, Hemorrhoids, Gall Bladder Disease Musculoskeletal History of Musculoskeletal Dis: Yes Musculoskeletal Disorders: Arthritis Endocrine History of Endocrine Disorders: No HEENT History of HEENT Disorders: Yes HEENT Disorders: Cataract Loss of Vision: Bilateral Hearing Impairment: Hard of Hearing Cancer History of Cancer: No Psychosocial History of Psychiatric Problem: No Integumentary History of Skin or Integumenta: Yes Skin/Integumentary Disorders: Psoriasis Blood Transfusions History of Blood Disorders: No Adverse Reaction to a Blood Tr: No Family Medical History Significant Family History: AAA (father from a AAA on the surgery table. ), Cancer (father had bladder cancer), GI Disease (father had bladder cancer but it did not kill him. ) Review of Systems-General Constitutional: No chills, No diaphoresis, No fever EENTM: hearing loss; No hoarseness, No mouth pain Respiratory: No cough, No dyspnea on exertion, No hemoptysis, No short of breath Cardiovascular: No chest pain, No edema, No palpitations Gastrointestinal: RLQ, abdominal pain (RLQ), constipation; No diarrhea Genitourinary: No decreased output, No hematuria Physical Exam-General Problems Physical Exam Vital Signs Vital Signs - First Documented 11/05/22 11/05/22 15:57 16:00 Temp 38.0 Pulse 125 Resp 18 B/P (MAP) 144/87 (106) Pulse Ox 99 O2 Delivery Room Air Capillary Refill : Less Than 3 Seconds General Appearance: WD/WN, no apparent distress Eyes: Bilateral Eye PERRL, Bilateral Eye EOMI HEENT: PERRL/EOMI Neck: non-tender, supple; No lymphadenopathy (R), No lymphadenopathy (L) Respiratory: chest non-tender, lungs clear, no respiratory distress, no accessory muscle use; No crackles, No rales Cardiovascular: regular rate, rhythm, no edema, no gallop, no murmur Peripheral Pulses: 3+ Carotid (R), 3+ Carotid (L), 3+ Radial Pulses (R), 3+ Radial Pulses (L) Gastrointestinal: normal bowel sounds, soft, guarding (conscious), tenderness (palpation of RLQ) Rectal: deferred Back: no CVA tenderness Neurologic/Psychiatric: alert, normal mood/affect, oriented x 3 Lymphatic: no adenopathy (neck, supra and subclavicular. ) Data Review Labs Laboratory Tests 11/05/22 16:00: White Blood Count 12.7H, Red Blood Count 3.56L, Hemoglobin 7.2L, Hematocrit 25L, Mean Corpuscular Volume 71L, Mean Corpuscular Hemoglobin 20L, Mean Corpuscular Hemoglobin Concent 29L, Red Cell Distribution Width 16.6H, Platelet Count 394, Mean Platelet Volume 8.3L, Immature Granulocyte % (Auto) 1, Neutrophils (%) (Auto) 88H, Lymphocytes (%) (Auto) 5L, Monocytes (%) (Auto) 5, Eosinophils (%) (Auto) 1, Basophils (%) (Auto) 0, Neutrophils # (Auto) 11.2H, Lymphocytes # (Auto) 0.7L, Monocytes # (Auto) 0.7, Eosinophils # (Auto) 0.1, Basophils # (Auto) 0.1, Immature Granulocyte # (Auto) 0.1, Neutrophils % (Manual) 79, Ly mphocytes % (Manual) 5, Monocytes % (Manual) 8, Band Neutrophils 8, Polychromasia SLIGHT, Hypochromasia MODERATE, Poikilocytosis SLIGHT, Anisocytosis MODERATE, Elliptocytes SLIGHT, Schistocytes MODERATE, Prothrombin Time 13.9, INR Comment 1.1, Activated Partial Thromboplast Time 26, Sodium Level 139, Potassium Level 4.1, Chloride Level 105, Carbon Dioxide Level 23, Anion Gap 11, Blood Urea Nitrogen 19H, Creatinine 0.76, Estimat Glomerular Filtration Rate 91, BUN/Creatinine Ratio 25, Glucose Level 124H, Lactic Acid Level 1.29, Calcium Level 8.6, Corrected Calcium 8.9, Total Bilirubin 0.2, Aspartate Amino Transf (AST/SGOT) 11, Alanine Aminotransferase (ALT/SGPT) 12, Alkaline Phosphatase 99, Total Protein 6.6, Albumin 3.6, Lipase 15 11/05/22 17:22: Urine Color YELLOW, Urine Clarity CLEAR, Urine pH 5.5, Urine Specific [place] 1.010L, Urine Protein NEGATIVE, Urine Glucose (UA) NEGATIVE, Urine Ketones NEGATIVE, Urine Nitrite NEGATIVE, Urine Bilirubin NEGATIVE, Urine Urobilinogen 0.2, Urine Leukocyte Esterase NEGATIVE, Urine RBC (Auto) NEGATIVE, Urine RBC NON E, Urine WBC NONE, Urine Crystals PRESENTH, Urine Amorphous Sediment FEW PRABHU URATESH, Urine Bacteria NEGATIVE, Urine Casts NONE, Urine Mucus NEGATIVE, Urine Culture Indicated NO 11/06/22 05:05: White Blood Count 8.6, Red Blood Count 2.97L, Hemoglobin 6.0*L, Hematocrit 21L, Mean Corpuscular Volume 71L, Mean Corpuscular Hemoglobin 20L, Mean Corpuscular Hemoglobin Concent 28L, Red Cell Distribution Width 16.3H, Platelet Count 305, Mean Platelet Volume 8.0L, Immature Granulocyte % (Auto) 1, Neutrophils (%) (Auto) 86H, Lymphocytes (%) (Auto) 6L, Monocytes (%) (Auto) 7, Eosinophils (%) (Auto) 1, Basophils (%) (Auto) 0, Neutrophils # (Auto) 7.4, Lymphocytes # (Auto) 0.5L, Monocytes # (Auto) 0.6, Eosinophils # (Auto) 0.1, Basophils # (Auto) 0.0, Immature Granulocyte # (Auto) 0.1, Sodium Level 138, Potassium Level 3.7, Chloride Level 108H, Carbon Dioxide Level 22, Anion Gap 8, Blood Urea Nitrogen 12, Creatinine 0.63, Estimat Glomerular Filtration Rate 97, BUN/Creatinine Ratio 19, Glucose Level 98, Calcium Level 8.0L Radiology Findings: The visualized portions of the lung bases are clear. The heart is not enlarged. There is no pericardial effusion. There are numerous low-attenuation lesions in the right and left lobes of the liver. These have internal attenuation values compatible with benign cysts. One of the lesions in the right lobe of the liver posteriorly on axial image 69 has some internal septations. There are subcentimeter low-attenuation liver lesions present which are too small to characterize. There is also a lesion in the left lobe of the liver with peripheral puddling type enhancement on axial image 60 likely reflecting hemangioma which measures 2.1 x 1.6 cm in size. Similar-appearing lesion is present in the liver on axial image 60, more laterally and posteriorly, which measures 2.6 x 1.1 cm in size. This lesion is not able to be definitively characterized as a peripheral puddling type appearance is not as prominent as the above-mentioned previous lesion. The gallbladder is surgically absent. There is no intrahepatic or extrahepatic bile duct dilation. The main pancreatic duct is not abnormally dilated. Evaluation of the pancreatic parenchyma is unremarkable. The spleen is normal in size. The adrenal glands are unremarkable. Unremarkable appearance of the renal parenchyma. The urinary collecting systems are not distended. There is no identified renal or ureteral stone. The urinary bladder is unremarkable. There is a very large volume colonic stool. There is abnormal irregular wall thickening in the region of the cecum. This is perhaps best demonstrated on axial image 103 and adjacent sequential images. There is fecalization of contents and small bowel compatible with slow intestinal transit. There are no grossly distended segments of small bowel. There is questionable wall thickening of the proximal stomach. There is no identified free intraperitoneal air. There is no identified drainable fluid collection. There is a small volume free fluid in the pelvis. There are atherosclerotic calcifications. There is no identified abnormally enlarged lymph node in the abdomen or pelvis which specifically meets CT size criteria for adenopathy. There is an L3 vertebral body hemangioma. There is no identified aggressive bone lesion or acute bony abnormality. CT scan of abdomin and pelvis. Impression: 1. Abnormal irregular wall thickening at the level of the cecum concerning for colonic malignancy or nonspecific colitis. Workup for definitive diagnosis is recommended. 2. Very large volume colonic stool. 3. Multiple low-attenuation masses in the liver most of which are consistent with benign cyst. There are subcentimeter liver lesions present too small to characterize as well as a hemangioma in the left lobe of the liver. 4. Additional 2.6 x 1.1 cm lesion in the peripheral liver which may reflect a hemangioma although could not be definitively characterized. Further evaluation with dedicated liver mass protocol CT without and with intravenous contrast is recommended. 5. Questionable wall thickening of the proximal stomach. Nonspecific gastritis or malignancy are both considered. Assessment/Plan Assessment/Plan Assessment/Plan RLQ pain Constipation Patient is currently not in any pain, he has a chronic use of laxatives but has not been taking them regularly lately. His labs are currently stable, CT scan showed a large amount of colitis, stool sitting in the right lower quadrant as well as a possible colon mass. He will continue to be monitored and will stay on a liquid diet. CITLALY DELUNA DO 11/06/22 1645: History of Present Illness History of Present Illness Date Seen by Provider: Nov 06, 2022 History of Present Illness Consult requested by Dr. Gonzalez for rlq abdominal pain. Patient is a 77-year-old male who presented emergency department yesterday with right lower quadrant abdominal pain. Patient was having significant pain in the right lower quadrant without any radiation. Patient had a slightly elevated white blood cell count and then saw his primary care provider. Patient was advised to go to the emergency department for further evaluation. Patient notes that he has chronic constipation. He tries to manage it with laxatives which he also at times with his activities so he does not have accidents outside of the house. Patient has not been taking his laxatives recently. Patient states that he has had bowel movement today. We will bit of achy diffuse better than yesterday. CT scan yesterday that demonstrated colonic stool significant third with an area in the cecum colitis versus malignancy. His last colonoscopy was greater than [address] Rodriges. Patient is tolerating liquids right now. His white count is down but he is anemic and getting blood transfusion. Currently denies any nausea vomiting fever sweats chills shortness of breath or chest pain. Allergies and Home Medications Allergies Uncoded Allergies: INFUSION FOR OSTEOPORSIS (Allergy, Unknown, 11/05/22) Patient Home Medication List Home Medication List Reviewed: Yes Acetaminophen (Tylenol 8 Hour) 650 Mg Tablet.er, 1,300 MG PO Q8H, (Reported) Entered as Reported by: MALINDA ROBIN on 11/06/22 1013 Last Action: Held Ascorbic Acid (Vitamin C) 1,000 Mg Tablet, 1,000 MG PO DAILY, (Reported) Entered as Reported by: Dasia Foss on 08/21/221539 Last Action: Held Carbamazepine (Carbamazepine ER) 400 Mg Tab.er.12h, 400 MG PO BID WITH MEALS, (Reported) Entered as Reported by: CHRIS LEON on 01/08/211719 Last Action: Converted Cholecalciferol (Vitamin D3) (Vitamin D3) 125 Mcg (5000 Unit) Tab.rapdis, 125 MCG PO DAILY, (Reported) Entered as Reported by: Dasia Foss on 08/21/221539 Last Action: Held Levetiracetam (Levetiracetam) 1,000 Mg Tablet, 1,500 MG PO Q12H, (Reported) Entered as Reported by: CHRIS LEON on 01/08/211719 Last Action: Continued Multivitamin (Multivitamin) 1 Each Tablet, 1 EACH PO DAILY, (Reported) Entered as Reported by: Dasia Foss on 08/21/221539 Last Action: Held Simethicone (Gas-X Ultra Strength) 180 Mg Capsule, 180 MG PO Q8H PRN for GAS, (Reported) Entered as Reported by: MALINDA ROBIN on 11/06/22 1013 Last Action: Held Tamsulosin HCl (Flomax) 0.4 Mg Cap, 0.4 MG PO 1800 W/MEAL, (Reported) Entered as Reported by: CHRIS LEON on 01/08/21 1720 Last Action: Continued Vitamin E Mixed (Vitamin E) 400 Unit Tablet, 400 UNIT PO DAILY, (Reported) Entered as Reported by: Dasia Foss on 08/21/22 1540 Last Action: Held Discontinued Medications Docusate Sodium (Colace) 100 Mg Capsule, 100 MG PO BID Discontinued Reason: No Longer Taking Prescribed by: CITLALY DELUNA on 08/28/22927 Last Action: Discontinued Hydrocodone/Acetaminophen (Hydrocodone-Acetamin 5-325 mg) 5 Mg-325 Mg Tablet, 1 EACH PO Q4H PRN for PAIN-MODERATE (5-7) Discontinued Reason: No Longer Taking Prescribed by: CITLALY DELUNA on 08/28/22927 Last Action: Discontinued Past Bnhlkpe-Rbmagv-Hkwovf Hx Patient Social History Smoking Status: Former Smoker Surgeries History of Surgeries: Yes Surgeries: Abdominal (bilateral hernia repairs), Eye Surgery, Neurological (brain surgery) Respiratory History of Respiratory Disorde: No Cardiovascular History of Cardiac Disorders: No Neurological History of Neurological Disord: Yes Neurological Disorders: Seizure Disorder Gastrointestinal History of Gastrointestinal Di: Yes Gastrointestinal Disorders: Chronic Constipation Reviewed Nursing Assessment Reviewed/Agree w Nursing PMH: Yes Family Medical History Significant Family History: No Pertinent Family Hx Review of Systems-General Constitutional: No chills, No diaphoresis, No fever EENTM: hearing loss; No hoarseness, No mouth pain Respiratory: No dyspnea on exertion, No hemoptysis, No short of breath Cardiovascular: No chest pain, No palpitations Gastrointestinal: RLQ, abdominal pain (RLQ), constipation; No diarrhea Genitourinary: No decreased output, No discharge, No hematuria Musculoskeletal: No back pain, No joint pain Skin: No change in color, No change in hair/nails Psychiatric/Neurological: Denies Anxiety, Denies Depressed, Denies Emotional Problems All Other Systems Reviewed Negative Unless Noted: Yes (Negative excepted noted.) Physical Exam-General Problems Physical Exam General Appearance: WD/WN, no apparent distress HEENT: PERRL/EOMI, normal ENT inspection Neck: non-tender, supple Respiratory: chest non-tender, no respiratory distress, no accessory muscle use Cardiovascular: regular rate, rhythm, no JVD Gastrointestinal: soft, distended (Upper abdomen); No guarding (conscious); tenderness (Minimal tenderness right lower quadrant) Rectal: deferred (At this time) Back: no CVA tenderness, no vertebral tenderness Extremities: normal inspection, no pedal edema Neurologic/Psychiatric: alert, normal mood/affect, oriented x 3 Skin: warm/dry, pallor Lymphatic: no adenopathy (neck, supra and subclavicular. ) Assessment/Plan Assessment/Plan Assessment/Plan Right lower quadrant abdominal pain Chronic constipation Colitis cecum versus possible malignancy Anemia Patient being transfused packed red blood cells. Transfuse and follow hemoglobin as needed. Patient continue antibiotics for colitis. We will keep on clear liquid at this time and bowel regimen to try to empty the colon of the chronic constipation/heavy stool burden We will need endoscopy in near future all patient's questions answered to his satisfaction. Supervisory-Addendum Brief Verification & Attestation Participated in pt care: history, MDM, physical Personally performed: exam, history, MDM, supervision of care Care discussed with: Medical Student Procedures: n/a Results interpretation: Verified all documentation Verification and Attestation of Medical Student E/M Service A physician child development assistant student performed and documented this service in my presence. I reviewed and verified all information documented by the medical student and made modifications to such information, when appropriate. I personally performed the physical exam and medical decision making. Citlaly Deluna, Nov 06, 2022,16:48 CITLALY KENDRICK Nov 06, 2022 07:57 CITLALY DELUNA DO Nov 06, 2022 16:45
--- NOTE | 2022-11-06 08:59 | Diagnostic Imaging Report ---
INDICATION: Colitis, pain COMPARISON: 11/05/2022 TECHNIQUE: Two radiographs of the abdomen dated 11/06/2022. FINDINGS: The visualized lung bases are clear. Surgical clips and mesh tacks identified overlying the pelvis bilaterally with additional surgical clips overlying the right upper abdomen. No abnormally dilated loops of small bowel. Moderate amount of stool is seen within the colon, particularly within the right abdomen. The liver shadow is mildly enlarged. No free air. Mild scattered osseous degenerative changes without acute osseous abnormality. IMPRESSION: Moderate amount of stool within the colon without evidence of small bowel obstruction. Mild hepatomegaly. Additional findings as above. Dictated by: Dictated on workstation # [id number]
[2022-11-06] MEDS: polyethylene glycoL POWDER 17 GM (MIRALAX) PACK PO SCH ×2 (09:08→21:33)
[2022-11-06] MEDS ORDERED: SIME180C4 PO (10:13)
[2022-11-06] MEDS ORDERED: ACET-2840 PO (10:13)
--- NOTE | 2022-11-06 10:56 | History & Physical-Hospitalist ---
History of Present Illness HPI/Chief Complaint Jose Gilliam is a 77 year old male with PMH seizure disorder, BPH, who presented to the ER due to abnormal labs. He had some labs done by his PCP and was found to be anemic and was sent to the ER. He reports feeling weak. He has been lightheaded. He has had abdominal pain, mainly localized to the right lower quadrant. He has had abdominal bloating. He has lost weight recently. He denies bloody stools. He denies melena. He denies chest pain and shortness of breath. He denies nausea and vomiting. He has not had a colonoscopy for many years, but Dr. Rodriges performed his last one. He takes care of his at home. He is worried about who is going to be able to take care of her. Source: patient Exam Limitations: no limitations Date Seen 11/06/22 Time Seen by a Provider: 09:05 Attending Physician Jay Stafford DO PCP Admitting Physician: Eliazar Lind MD Attending Physician: Eliazar Lind MD Referring Physician Date of Admission Nov 05, 2022 at 18:23 Home Medications & Allergies Home Medications Reviewed patient Home Medication Reconciliation performed by pharmacy medication reconciliations research laboratory technician and/or nursing. Patients Allergies have been reviewed. Allergies Allergies Uncoded Allergies INFUSION FOR OSTEOPORSIS ( Allergy, Unknown, 11/05/22) Past [id number] Hx Patient Social History Tobacco Use?: No Smoking Status: Former Smoker Use of E-Cig and/or Vaping dev: No Substance use?: No Alcohol Use?: No Pt feels they are or have been: No Immunizations Up To Date Date of Influenza Vaccine: Feb 17, 2022 First/Initial COVID19 Vaccinat: 06/07 Second COVID19 Vaccination Bebo: 07/08 Tetanus Booster (TDap): Unknown Hepatitis A: No Hepatitis B: No Date of Pneumonia Vaccine: Jan 16, 2011 Seasonal Allergies Seasonal Allergies: Yes Current Status Advance Directives: Yes Advance Directive Location: Copy from prev record Communicates: Verbally Primary Language: Setswana Preferred Spoken Language: Setswana Is interpretation needed?: No Sensory deficits: Vision impairment Additional sensory deficits: pt legally blind Implanted or Applied Medical D: None Past Medical History Surgeries: Abdominal (bilateral hernia repairs), Eye Surgery, Neurological (brain surgery) Currently Using CPAP: No Currently Using BIPAP: No Seizure Disorder Prostate Problems Chronic Constipation, Hemorrhoids, Gall Bladder Disease Arthritis Cataract Loss of Vision: Bilateral Hearing Impairment: Hard of Hearing Psoriasis Blood Disorders: No Adverse Reaction/Blood Tranf: No Family Medical History AAA (father from a AAA on the surgery table. ), Cancer (father had "colon or bladder cancer" but it did not kill him. ), GI Disease (father had "colon or bladder cancer" but it did not kill him. ) Review of Systems Constitutional: weakness, weight loss Respiratory: no symptoms reported Cardiovascular: no symptoms reported Gastrointestinal: abdominal pain Physical Exam Physical Exam Vital Signs Vital Signs - First Documented 11/05/22 11/05/22 15:57 16:00 Temp 38.0 Pulse 125 Resp 18 B/P (MAP) 144/87 (106) Pulse Ox 99 O2 Delivery Room Air Capillary Refill : Less Than 3 Seconds Height, Weight, BMI Height: 5'7" Weight: 170lbs. 0oz. [id number]; 19.52 BMI Method:Estimated General Appearance: No Apparent Distress, Thin HEENT: PERRL/EOMI, Pharynx Normal Neck: Normal Inspection, Supple Respiratory: Lungs Clear, Normal Breath Sounds, No Respiratory Distress Cardiovascular: Regular Rate, Rhythm, No Edema, No Murmur, Normal Peripheral Pulses Gastrointestinal: Normal Bowel Sounds, Soft, Distended; No Mass Extremity: Normal Inspection, No Pedal Edema Neurologic/Psychiatric: Alert, Oriented x3, Depressed Affect Skin: Normal Color, Warm/Dry Results Results/Procedures Labs Laboratory Tests 11/05/22 16:00 11/06/22 05:05 Patient resulted labs reviewed. Imaging: Reviewed Imaging Report Assessment/Plan Admission Diagnosis Sepsis due to colitis Admission Status: Inpatient Order (span 2 midnights) Reason for Inpatient Admission: IV antibiotics Endoscopic evaluation Assessment and Plan Sepsis due to colitis Acute blood loss anemia Microcytic anemia Weight loss Abdominal pain and bloating SIRS+ with fever, leukocytosis, tachycardia CT revealed possible colitis at the cecum, malignancy also possible, large stool burden Surgery consulted, planning for endoscopic evaluation Clear liquids IV fluids Rocephin and Flagyl Hgb 6 today, transfuse 1 unit PRBC Seizure disorder BPH Continue home meds as able Diagnosis/Problems Diagnosis/Problems (1) Sepsis Status: Acute Qualifiers: Sepsis type: sepsis due to unspecified organism Sepsis acute organ d ysfunction status: without acute organ dysfunction Qualified Codes: A41.9 - Sepsis, unspecified organism (2) Colitis Status: Acute (3) Microcytic anemia Status: Acute (4) Weight loss Status: Acute (5) Abdominal pain Status: Acute Qualifiers: Abdominal location: right lower quadrant Qualified Codes: R10.31 - Right lower quadrant pain (6) Abdominal bloating Status: Acute ELIAZAR LIND MD Nov 06, 2022 10:56
[2022-11-06] MEDS ORDERED: NS IV 500 ML 500 ML IV PRN (11:00)
[2022-11-06] MEDS: TAMSULOSIN 0.4 MG (FLOMAX) CAP PO SCH (17:24)
[2022-11-06] MEDS ORDERED: CARBAMAZEPINE 400 MG PO SCH (18:00)
[2022-11-06] MEDS ORDERED: MELATONIN 3 MG TABLET PO PRN (18:45)
[2022-11-06] MEDS ORDERED: MILK OF MAGNESIA 400 MG/5 ML 30 ML UDC PO PRN (18:45)
[2022-11-06] MEDS ORDERED: BISACODYL 10 MG SUPP (DULCOLAX) PR PRN (18:45)
[2022-11-06] MEDS ORDERED: LACTULOSE SYRUP 10GM/15ML (ENULOSE) 30ML UDC PO PRN (18:45)
[2022-11-06] MEDS ORDERED: polyethylene glycoL POWDER 17 GM (MIRALAX) PACK PO PRN (18:45)
[2022-11-06] MEDS ORDERED: CALCIUM CARBONATE 500 MG (TUMS) TAB.CHEW PO PRN (18:45)
[2022-11-06] MEDS ORDERED: ONDANSETRON 4 MG/2 ML (SDV) Z0FRAN IV PRN (18:45)
[2022-11-06] MEDS ORDERED: ONDANSETRON 4 MG (ZOFRAN) ORAL DISSOLVE TAB PO PRN (18:45)
[2022-11-06] MEDS ORDERED: ANTACID SUSP 30 ML UDC (MYLANTA) PO PRN (18:45)
[2022-11-06] MEDS: cefTRIAXone 1 GM/NS 50 ML IVPB IV SCH ×2 (21:32)
[2022-11-06] MEDS: SENNOSIDES 8.6 MG (SENOKOT) TAB PO SCH (21:33)
[2022-11-06] MEDS: carBAMazepine 200 MG (TEGretol) TAB PO SCH (21:33)
[2022-11-06] MEDS: DOCUSATE SODIUM 100 MG (COLACE) CAP PO SCH (21:33)
[2022-11-07] VITALS: BP 107/55
[2022-11-07] MEDS: metroNIDAZOLE 500MG/100ML IVPB 100 ML IV SCH ×3 (03:42→19:31)
[2022-11-07 04:15] VITALS: BP 125/57
[2022-11-07 05:56] LABS: BASOPHILS % (AUTO) 0 % (0-10); EOSINOPHILS # (AUTO) 0.1 10^3/uL (0.0-0.3); EOSINOPHILS % (AUTO) 1 % (0-10); HEMATOCRIT 24 % (40-54); HEMOGLOBIN 7.1 g/dL (13.3-17.7); LYMPHOCYTES # (AUTO) 0.7 10^3/uL (1.0-4.0); LYMPHOCYTES % (AUTO) 8 % (12-44); MEAN CORPUSCULAR HEMOGLOBIN 22 pg (25-34); MEAN CORPUSCULAR HGB CONC 29 g/dL (32-36); MEAN CORPUSCULAR VOLUME 74 fL (80-99); MEAN PLATELET VOLUME 7.9 fL (9.0-12.2); MONOCYTES # (AUTO) 0.7 10^3/uL (0.0-1.0); MONOCYTES % (AUTO) 8 % (0-12); NEUTROPHILS # (AUTO) 7.4 10^3/uL (1.8-7.8); NEUTROPHILS % (AUTO) 83 % (42-75); PLATELET COUNT 292 10^3/uL (130-400)
[2022-11-07 06:21] LABS: POTASSIUM 3.9 MMOL/L (3.6-5.0)
[2022-11-07 06:23] LABS: CALCIUM 8.1 MG/DL (8.5-10.1)
[2022-11-07 06:27] LABS: CREATININE SERUM 0.68 MG/DL (0.60-1.30)
[2022-11-07 06:30] LABS: MAGNESIUM 1.9 MG/DL (1.6-2.4)
[2022-11-07] MEDS: LACTATED RINGERS 1,000 ML IV SCH (06:59)
[2022-11-07 07:29] VITALS: BP 158/74
[2022-11-07] MEDS: MAGNESIUM 1 GM/100 ML IVPB 100 ML IV SCH ×3 (07:58→09:08)
[2022-11-07] MEDS: POTASSIUM CL 10MEQ/50ML IVPB 50 ML IV SCH (07:58)
[2022-11-07] MEDS: KCL 20 MEQ TAB (K-DUR) PO SCH (07:58)
[2022-11-07] MEDS: POTASSIUM BICARB 20 MEQ (EFFER-K) TABLET PO SCH (07:58)
[2022-11-07] MEDS ORDERED: KCL 20 MEQ TAB (K-DUR) PO ONE (08:00)
--- NOTE | 2022-11-07 08:19 | Progress Note - Surgery ---
CITLALY KENDRICK 11/07/22 0819: Subjective Date Seen by a Provider: Nov 07, 2022 Time Seen by a Provider: 07:27 Subjective/Events-last exam Patient is seen this morning laying down in bed. He says that he had a few bowel movements the day prior that started as diarrhea, but towards the end of the day he had more solid stools but they were not as frequent. He states that he is not having black, tar like or noticed blood in his stools. He states that he is ambulating, and getting up and going to the bathroom. He states that he is not having an issue with urination and has not noticed any hematuria when he goes. He states that he feels his pain has subsided some to his right lower quadrant but it still comes and goes with time. He states that he still has the feeling of being full all the time. His HgB came up to 7.1 today after being 6.0 the day prior and recieving and infusion. Review of Systems General: No Chills, No Night Sweats, No Fatigue HEENT: No Visual Changes, No Eye Pain, No Ear Pain Pulmonary: No Dyspnea, No Cough Cardiovascular: No: Chest Pain, Palpitations, Edema Gastrointestinal: Diarrhea (diarrhea the day prior. ); No: Nausea, Vomiting, Constipation, Melena, Hematochezia Genitourinary: No Dysuria, No Frequency, No Retention Musculoskeletal: No: neck pain, shoulder pain Neurological: No: Weakness, Numbness Focused Exam Lactate Level 11/05/22 16:00: Lactic Acid Level 1.29 Respiratory: Chest Non Tender, Lungs Clear, No Accessory Muscle Use, No Respiratory Distress Cardiovascular: Regular Rate, Rhythm, No Edema, No Gallop, No Murmur Peripheral Pulses: 3+ Carotid (R), 3+ Carotid (L), 3+ Radial Pulses (R), 3+ Radial Pulses (L) Skin: No rash, No ulcerations Objective Exam Vital Signs Date Time Temp Pulse Resp B/P (MAP) Pulse Ox O2 Delivery O2 Flow Rate FiO2 11/07/22 07:29 37.2 80 18 158/74 (102) 98 Room Air 11/07/22 04:15 36.9 84 16 125/57 (79) 98 Room Air 11/07/22 00:00 37.3 86 16 107/55 (72) 96 Room Air 11/06/22 19:39 37.3 88 18 128/69 (88) 96 Room Air 11/06/22 19:30 96 Room Air 11/06/22 15:59 37.1 84 20 167/76 (106) 96 Room Air 11/06/22 12:57 38.0 98 14 146/70 Room Air 11/06/22 11:53 37.9 94 18 150/76 (100) 97 Room Air 11/06/22 09:51 38.1 97 12 133/62 97 Room Air 11/06/22 09:30 38.1 96 14 132/63 96 Room Air 11/06/22 09:00 Room Air I & O 11/07/22 07:00 Intake Total 1150 ml Output Total 100 ml Balance 1050 ml Capillary Refill : Less Than 3 Seconds General Appearance: No Apparent Distress, WD/WN, Thin HEENT: PERRL/EOMI, Pharynx Normal Neck: Normal Inspection, Supple Respiratory: Chest Non Tender, Lungs Clear, Normal Breath Sounds, No Respiratory Distress Cardiovascular: Regular Rate, Rhythm, No Edema, No Murmur, Normal Peripheral Pulses Peripheral Pulses: 3+ Carotid (R), 3+ Carotid (L), 3+ Radial Pulses (R), 3+ Radial Pulses (L) Gastrointestinal: soft, distended (Upper abdomen); No guarding (conscious); tenderness (Minimal tenderness right lower quadrant) Extremity: Normal Inspection, No Pedal Edema Neurologic/Psychiatric: Alert, Oriented x3, Depressed Affect Skin: Normal Color, Warm/Dry Lymphatic: No Adenopathy (neck, supra and subclavicular) Results Lab Laboratory Tests 11/07/22 05:05: White Blood Count 9.0, Red Blood Count 3.30L, Hemoglobin 7.1L, Hematocrit 24L, Mean Corpuscular Volume 74L, Mean Corpuscular Hemoglobin 22L, Mean Corpuscular Hemoglobin Concent 29L, Red Cell Distribution Width 17.6H, Platelet Count 292, Mean Platelet Volume 7.9L, Immature Granulocyte % (Auto) 1, Neutrophils (%) (Auto) 83H, Lymphocytes (%) (Auto) 8L, Monocytes (%) (Auto) 8, Eosinophils (%) (Auto) 1, Basophils (%) (Auto) 0, Neutrophils # (Auto) 7.4, Lymphocytes # (Auto) 0.7L, Monocytes # (Auto) 0.7, Eosinophils # (Auto) 0.1, Basophils # (Auto) 0.0, Immature Granulocyte # (Auto) 0.1, Sodium Level 141, Potassium Level 3.9, Chloride Level 108H, Carbon Dioxide Level 24, Anion Gap 9, Blood Urea Nitrogen 7, Creatinine 0.68, Estimat Glomerular Filtration Rate 95, BUN/Creatinine Ratio 10, Glucose Level 97, Calcium Level 8.1L, Magnesium Level 1.9 Microbiology 11/05/22 Blood Culture - Preliminary, Resulted No growth Assessment/Plan Assessment/Plan Assessment/Plan Right lower quadrant abdominal pain Chronic constipation Colitis cecum versus possible malignancy Anemia Patient was transfused with red blood cells which brought his hemoglobin up to 7.1 this morning, will continue to monitor. Patient continue antibiotics for colitis. We will maintain a clear liquid at this time and bowel regimen to try to empty the colon of the chronic constipation/heavy stool burden We will need endoscopy in near future all patient's questions answered to his satisfaction. CITLALY ANGEL DO 11/07/223: Subjective Subjective/Events-last exam Patient has started having some bowel function. Between hard stools and diarrhea. Abdominal pain in the rlq has improved. Anemia improved to 7.1 with prbc. Denies blood in stool. No new complaints. Denies n/v fever sweats chills s hortness of breath or chest pain. Objective Exam General Appearance: No Apparent Distress, Thin HEENT: PERRL/EOMI, Normal ENT Inspection Neck: Normal Inspection, Non Tender Respiratory: Chest Non Tender, No Accessory Muscle Use, No Respiratory Distress Cardiovascular: Regular Rate, Rhythm, No JVD Gastrointestinal: distended (Upper abdomen), tenderness (Minimal tenderness right lower quadrant) Extremity: Non Tender, No Calf Tenderness Neurologic/Psychiatric: Alert, Oriented x3 Skin: Normal Color, Warm/Dry Lymphatic: No Adenopathy (neck, supra and subclavicular) Assessment/Plan Assessment/Plan Assessment/Plan Right lower quadrant abdominal pain Chronic constipation Colitis cecum versus possible malignancy Anemia Patient was transfused with red blood cells which brought his hemoglobin up to 7.1 this morning, will continue to monitor. Patient continue antibiotics for colitis. We will maintain a clear liquid at this time and bowel regimen to try to empty the colon of the chronic constipation/heavy stool burden We will need endoscopy in near future all patient's questions answered to his satisfaction. Supervisory-Addendum Brief Verification & Attestation Participated in pt care: history, MDM, physical Personally performed: exam, history, MDM, supervision of care Care discussed with: Medical Student Procedures: n/a Results interpretation: Verified all documentation Verification and Attestation of Medical Student E/M Service A PA student performed and documented this service in my presence. I reviewed and verified all information documented by the medical student and made modifications to such information, when appropriate. I personally performed the physical exam and medical decision making. Citlaly Angel, Nov 07, 2022,22:23 CITLALY KENDRICK Nov 07, 2022 08:19 CITLALY ANGEL DO Nov 07, 2022 22:09
[2022-11-07] MEDS: carBAMazepine 200 MG (TEGretol) TAB PO SCH ×2 (09:03→18:22)
[2022-11-07] MEDS: DOCUSATE SODIUM 100 MG (COLACE) CAP PO SCH ×2 (09:03→21:00)
[2022-11-07] MEDS: SENNOSIDES 8.6 MG (SENOKOT) TAB PO SCH ×2 (09:03→21:00)
[2022-11-07] MEDS: polyethylene glycoL POWDER 17 GM (MIRALAX) PACK PO SCH ×2 (09:04→21:00)
[2022-11-07] MEDS: IRON SUCROSE 200 MG/10 ML (VENOFER) VIAL IV SCH (09:04)
[2022-11-07 11:34] VITALS: BP 133/74
[2022-11-07 15:57] VITALS: BP 140/76
[2022-11-07] MEDS: ACETAMINOPHEN 325 MG TABLET PO PRN (16:03)
--- NOTE | 2022-11-07 17:11 | Progress Note - Hospitalist ---
Subjective HPI/CC On Admission Date Seen by Provider: Nov 07, 2022 Time Seen by Provider: 10:00 Jose Gilliam is a 77 year old male with PMH seizure disorder, BPH, who presented to the ER due to abnormal labs. He had some labs done by his PCP and was found to be anemic and was sent to the ER. He reports feeling weak. He has been lightheaded. He has had abdominal pain, mainly localized to the right lower quadrant. He has had abdominal bloating. He has lost weight recently. He denies bloody stools. He denies melena. He denies chest pain and shortness of breath. He denies nausea and vomiting. He has not had a colonoscopy for many years, but Dr. Rodriges performed his last one. He takes care of his at home. He is worried about who is going to be able to take care of her. Subjective/Events-last exam He is feeling a bit better. He has had some bowel movements. He is not having any abdominal pain at this time. Focused Exam Lactate Level 11/05/22 16:00: Lactic Acid Level 1.29 Objective Exam Vital Signs Vital Signs Date Time Temp Pulse Resp B/P (MAP) Pulse Ox O2 Delivery O2 Flow Rate FiO2 11/07/22 15:57 37.1 90 18 140/76 (97) 97 Room Air Capillary Refill : Less Than 3 Seconds General Appearance: No Apparent Distress, Thin Respiratory: Lungs Clear, No Respiratory Distress Cardiovascular: Regular Rate, Rhythm, No Murmur Gastrointestinal: Normal Bowel Sounds, Soft, Distended, Tenderness Extremity: Normal Inspection, No Pedal Edema Neurologic/Psychiatric: Alert, No Motor/Sensory Deficits Skin: Normal Color, Warm/Dry Results/Procedures Lab Laboratory Tests 11/07/22 05:05 Patient resulted labs reviewed. Imaging: Reviewed Imaging Report Assessment/Plan Assessment and Plan Assess & Plan/Chief Complaint Sepsis due to colitis Iron deficiency anemia Microcytic anemia Weight loss Abdominal pain and bloating SIRS+ with fever, leukocytosis, tachycardia CT revealed possible colitis at the cecum, malignancy also possible, large s tool burden Surgery consulted, planning for endoscopic evaluation, possibly outpatient Clear liquids IV fluids Rocephin and Flagyl Hgb improved Bowel regimen Seizure disorder BPH Continue home meds as able Diagnosis/Problems Diagnosis/Problems (1) Sepsis Status: Acute Qualifiers: Sepsis type: sepsis due to unspecified organism Sepsis acute organ dysfunction status: without acute organ dysfunction Qualified Codes: A41.9 - Sepsis, unspecified organism (2) Colitis Status: Acute (3) Microcytic anemia Status: Acute (4) Weight loss Status: Acute (5) Abdominal pain Status: Acute Qualifiers: Abdominal location: right lower quadrant Qualified Codes: R10.31 - Right lower quadrant pain (6) Abdominal bloating Status: Acute ELIAZAR LIND MD Nov 07, 2022 17:11
[2022-11-07] MEDS: TAMSULOSIN 0.4 MG (FLOMAX) CAP PO SCH (18:21)
[2022-11-07] MEDS: cefTRIAXone 1 GM/NS 50 ML IVPB IV SCH ×2 (18:22)
[2022-11-07 19:04] VITALS: BP 136/76
[2022-11-08] VITALS: BP 107/58
[2022-11-08] MEDS: metroNIDAZOLE 500MG/100ML IVPB 100 ML IV SCH ×3 (03:54→18:48)
[2022-11-08 04:00] VITALS: BP 134/67
[2022-11-08 05:38] LABS: BASOPHILS % (AUTO) 1 % (0-10); EOSINOPHILS # (AUTO) 0.2 10^3/uL (0.0-0.3); EOSINOPHILS % (AUTO) 2 % (0-10); HEMATOCRIT 25 % (40-54); HEMOGLOBIN 7.3 g/dL (13.3-17.7); LYMPHOCYTES # (AUTO) 0.6 10^3/uL (1.0-4.0); LYMPHOCYTES % (AUTO) 7 % (12-44); MEAN CORPUSCULAR HEMOGLOBIN 21 pg (25-34); MEAN CORPUSCULAR HGB CONC 29 g/dL (32-36); MEAN CORPUSCULAR VOLUME 74 fL (80-99); MEAN PLATELET VOLUME 8.2 fL (9.0-12.2); MONOCYTES # (AUTO) 0.6 10^3/uL (0.0-1.0); MONOCYTES % (AUTO) 7 % (0-12); NEUTROPHILS # (AUTO) 6.5 10^3/uL (1.8-7.8); NEUTROPHILS % (AUTO) 83 % (42-75); PLATELET COUNT 303 10^3/uL (130-400); WHITE BLOOD COUNT 7.9 10^3/uL (4.3-11.0)
[2022-11-08 06:08] LABS: CALCIUM 7.9 MG/DL (8.5-10.1); CREATININE SERUM 0.63 MG/DL (0.60-1.30); MAGNESIUM 2.2 MG/DL (1.6-2.4); POTASSIUM 3.8 MMOL/L (3.6-5.0)
[2022-11-08 08:02] VITALS: BP 136/69
[2022-11-08] MEDS: POTASSIUM CL 10MEQ/50ML IVPB 50 ML IV SCH (09:13)
[2022-11-08] MEDS: MAGNESIUM 1 GM/100 ML IVPB 100 ML IV SCH (09:13)
[2022-11-08] MEDS: KCL 20 MEQ TAB (K-DUR) PO SCH (09:14)
[2022-11-08] MEDS: POTASSIUM BICARB 20 MEQ (EFFER-K) TABLET PO SCH (09:15)
[2022-11-08] MEDS: SENNOSIDES 8.6 MG (SENOKOT) TAB PO SCH ×2 (09:15→20:08)
[2022-11-08] MEDS: polyethylene glycoL POWDER 17 GM (MIRALAX) PACK PO SCH ×2 (09:15→21:37)
[2022-11-08] MEDS: DOCUSATE SODIUM 100 MG (COLACE) CAP PO SCH ×2 (09:15→20:08)
[2022-11-08] MEDS: carBAMazepine 200 MG (TEGretol) TAB PO SCH ×2 (09:24→18:11)
[2022-11-08 11:16] VITALS: BP 137/75
--- NOTE | 2022-11-08 13:10 | Diagnostic Imaging Report ---
EXAMINATION: Abdomen, 1 view. HISTORY: Colitis. COMPARISON: 11/06/2022. FINDINGS: There has been a hernia repair of the pelvis. The colon is mildly distended. No free air. IMPRESSION: Distended colon which may represent colitis or ileus. Dictated by: Dictated on workstation # [id number]
--- NOTE | 2022-11-08 13:55 | Progress Note - Surgery ---
Subjective Date Seen by a Provider: Nov 08, 2022 Time Seen by a Provider: 13:55 Subjective/Events-last exam Still with rlq abdominal pain at times. Feeling some better though. Having bowel function. hgb stable. Denies n/v fever sweats chills shortness of breath or chest pain. Focused Exam Lactate Level 11/05/22 16:00: Lactic Acid Level 1.29 Objective Exam Vital Signs Date Time Temp Pulse Resp B/P (MAP) Pulse Ox O2 Delivery O2 Flow Rate FiO2 11/08/22 11:16 36.6 90 18 137/75 (95) 97 Room Air 11/08/22 08:02 36.9 94 16 136/69 (91) 98 Room Air 11/08/22 08:00 Room Air 11/08/22 04:00 36.8 83 18 134/67 (89) 97 Room Air 11/08/22 00:00 36.8 79 16 107/58 (74) 96 Room Air 11/07/22 19:30 97 Room Air 11/07/22 19:04 37.3 84 20 136/76 (96) 97 Room Air 11/07/22 15:57 37.1 90 18 140/76 (97) 97 Room Air I & O 11/08/22 07:00 Intake Total 2790 ml Balance 2790 ml Capillary Refill : Less Than 3 Seconds General Appearance: No Apparent Distress, Thin HEENT: PERRL/EOMI, Normal ENT Inspection Neck: Normal Inspection, Non Tender Respiratory: Chest Non Tender, No Accessory Muscle Use, No Respiratory Distress Cardiovascular: Regular Rate, Rhythm, No JVD Peripheral Pulses: 3+ Carotid (R), 3+ Carotid (L), 3+ Radial Pulses (R), 3+ Radial Pulses (L) Gastrointestinal: distended (Upper abdomen), tenderness (Minimal tenderness right lower quadrant) Extremity: Non Tender, No Calf Tenderness Neurologic/Psychiatric: Alert, Oriented x3 Skin: Normal Color, Warm/Dry Lymphatic: No Adenopathy (neck, supra and subclavicular) Results Lab Laboratory Tests 11/08/22 05:10: White Blood Count 7.9, Red Blood Count 3.41L, Hemoglobin 7.3L, Hematocrit 25L, Mean Corpuscular Volume 74L, Mean Corpuscular Hemoglobin 21L, Mean Corpuscular Hemoglobin Concent 29L, Red Cell Distribution Width 18.1H, Platelet Count 303, Mean Platelet Volume 8.2L, Immature Granulocyte % (Auto) 1, Neutrophils (%) (Auto) 83H, Lymphocytes (%) (Auto) 7L, Monocytes (%) (Auto) 7, Eosinophils (%) (Auto) 2, Basophils (%) (Auto) 1, Neutrophils # (Auto) 6.5, Lymphocytes # (Auto) 0.6L, Monocytes # (Auto) 0.6, Eosinophils # (Auto) 0.2, Basophils # (Auto) 0.0, Immature Granulocyte # (Auto) 0.1, Sodium Level 140, Potassium Level 3.8, Chloride Level 108H, Carbon Dioxide Level 24, Anion Gap 8, Blood Urea Nitrogen 5L, Creatinine 0.63, Estimat Glomerular Filtration Rate 97, BUN/Creatinine Ratio 8, Glucose Level 98, Calcium Level 7.9L, Magnesium Level 2.2 Microbiology 11/05/22 Blood Culture - Preliminary, Resulted No growth Assessment/Plan Assessment/Plan Assessment/Plan Right lower quadrant abdominal pain Chronic constipation Colitis cecum versus possible malignancy Anemia Patient hgb stable continue to monitor and transfuse if needed. Patient continue antibiotics for colitis. We will maintain a clear liquid at this time and bowel prep tomorrow. He wants to proceed with colonoscopy which he understands currently a little higher risk due to possible colitis. Prep tomorrow with go CITLALY Burr DO Nov 08, 2022 13:55
--- NOTE | 2022-11-08 14:06 | Progress Note - Hospitalist ---
Subjective HPI/CC On Admission Date Seen by Provider: Nov 08, 2022 Time Seen by Provider: 09:35 Jose Gilliam is a 77 year old male with PMH seizure disorder, BPH, who presented to the ER due to abnormal labs. He had some labs done by his PCP and was found to be anemic and was sent to the ER. He reports feeling weak. He has been lightheaded. He has had abdominal pain, mainly localized to the right lower quadrant. He has had abdominal bloating. He has lost weight recently. He denies bloody stools. He denies melena. He denies chest pain and shortness of breath. He denies nausea and vomiting. He has not had a colonoscopy for many years, but Dr. Rodriges performed his last one. He takes care of his at home. He is worried about who is going to be able to take care of her. Subjective/Events-last exam He is having some small bowel movements. He still feels distended. He has been getting full with minimal intake. He would like to have the scopes while in the hospital if possible. Focused Exam Lactate Level 11/05/22 16:00: Lactic Acid Level 1.29 Objective Exam Vital Signs Vital Signs Date Time Temp Pulse Resp B/P (MAP) Pulse Ox O2 Delivery O2 Flow Rate FiO2 11/08/22 11:16 36.6 90 18 137/75 (95) 97 Room Air Capillary Refill : Less Than 3 Seconds General Appearance: No Apparent Distress, Thin Respiratory: Lungs Clear, No Respiratory Distress Cardiovascular: Regular Rate, Rhythm, No Murmur Gastrointestinal: Normal Bowel Sounds, Soft, Distended Extremity: Normal Inspection, No Pedal Edema Neurologic/Psychiatric: Alert, No Motor/Sensory Deficits Skin: Normal Color, Warm/Dry Results/Procedures Lab Laboratory Tests 11/08/22 05:10 Patient resulted labs reviewed. Imaging: Reviewed Imaging Report Assessment/Plan Assessment and Plan Assess & Plan/Chief Complaint Sepsis due to colitis Iron deficiency anemia Microcytic anemia Weight loss Abdominal pain and bloating SIRS+ with fever, leukocytosis, tachycardia CT revealed possible colitis at the cecum, malignancy also possible, large stool burden Surgery consulted, planning for endoscopic evaluation, likely prep tomorrow and endoscopy Thursday Clear liquids IV fluids Rocephin and Flagyl Hgb stable Bowel regimen Seizure disorder BPH Continue home meds as able Diagnosis/Problems Diagnosis/Problems (1) Sepsis Status: Acute Qualifiers: Sepsis type: sepsis due to unspecified organism Sepsis acute organ dysfunction status: without acute organ dysfunction Qualified Codes: A41.9 - Sepsis, unspecified organism (2) Colitis Status: Acute (3) Microcytic anemia Status: Acute (4) Weight loss Status: Acute (5) Abdominal pain Status: Acute Qualifiers: Abdominal location: right lower quadrant Qualified Codes: R10.31 - Right lower quadrant pain (6) Abdominal bloating Status: Acute ELIAZAR LIND MD Nov 08, 2022 14:06
[2022-11-08] MEDS ORDERED: MILK OF MAGNESIA 400 MG/5 ML 30 ML UDC PO ONE (14:15)
[2022-11-08 16:00] VITALS: BP 152/77
[2022-11-08] MEDS: cefTRIAXone 1 GM/NS 50 ML IVPB IV SCH ×2 (18:10)
[2022-11-08] MEDS: TAMSULOSIN 0.4 MG (FLOMAX) CAP PO SCH (18:11)
[2022-11-08] MEDS: ACETAMINOPHEN 325 MG TABLET PO PRN (20:08)
[2022-11-08 20:12] VITALS: BP 152/78
[2022-11-09] VITALS (8 sets, daily range): BP systolic 100–148; BP diastolic 56–74
[2022-11-09] MEDS: metroNIDAZOLE 500MG/100ML IVPB 100 ML IV SCH ×3 (02:10→18:13)
[2022-11-09 05:34] LABS: BASOPHILS % (AUTO) 1 % (0-10); EOSINOPHILS # (AUTO) 0.2 10^3/uL (0.0-0.3); EOSINOPHILS % (AUTO) 2 % (0-10); HEMATOCRIT 26 % (40-54); HEMOGLOBIN 7.6 g/dL (13.3-17.7); LYMPHOCYTES # (AUTO) 0.7 10^3/uL (1.0-4.0); LYMPHOCYTES % (AUTO) 9 % (12-44); MEAN CORPUSCULAR HEMOGLOBIN 21 pg (25-34); MEAN CORPUSCULAR HGB CONC 29 g/dL (32-36); MEAN CORPUSCULAR VOLUME 74 fL (80-99); MEAN PLATELET VOLUME 8.6 fL (9.0-12.2); MONOCYTES # (AUTO) 0.5 10^3/uL (0.0-1.0); MONOCYTES % (AUTO) 7 % (0-12); NEUTROPHILS # (AUTO) 6.4 10^3/uL (1.8-7.8); NEUTROPHILS % (AUTO) 81 % (42-75); PLATELET COUNT 344 10^3/uL (130-400); WHITE BLOOD COUNT 7.9 10^3/uL (4.3-11.0)
[2022-11-09 05:39] LABS: CALCIUM 7.9 MG/DL (8.5-10.1); CREATININE SERUM 0.64 MG/DL (0.60-1.30); MAGNESIUM 2.1 MG/DL (1.6-2.4); POTASSIUM 3.8 MMOL/L (3.6-5.0)
[2022-11-09] MEDS: MAGNESIUM 1 GM/100 ML IVPB 100 ML IV SCH (05:46)
[2022-11-09] MEDS: POTASSIUM BICARB 20 MEQ (EFFER-K) TABLET PO SCH (05:47)
[2022-11-09] MEDS: KCL 20 MEQ TAB (K-DUR) PO SCH (05:47)
[2022-11-09] MEDS: POTASSIUM CL 10MEQ/50ML IVPB 50 ML IV SCH (05:47)
[2022-11-09] MEDS ORDERED: KCL 20 MEQ TAB (K-DUR) PO ONE (09:00)
[2022-11-09] MEDS: IRON SUCROSE 200 MG/10 ML (VENOFER) VIAL IV SCH (09:52)
[2022-11-09] MEDS: polyethylene glycoL POWDER 17 GM (MIRALAX) PACK PO SCH ×2 (09:54→20:55)
[2022-11-09] MEDS: SENNOSIDES 8.6 MG (SENOKOT) TAB PO SCH ×2 (09:54→20:11)
[2022-11-09] MEDS: carBAMazepine 200 MG (TEGretol) TAB PO SCH ×2 (09:55→17:44)
[2022-11-09] MEDS: DOCUSATE SODIUM 100 MG (COLACE) CAP PO SCH ×2 (09:55→20:11)
[2022-11-09] MEDS ORDERED: GOLYTELY POWDER 4000 ML BTL PO ONE (10:00)
--- NOTE | 2022-11-09 10:08 | Progress Note - Surgery ---
Subjective Date Seen by a Provider: Nov 09, 2022 Time Seen by a Provider: 10:06 Subjective/Events-last exam Tolerating liquids. Having bowel function. RLQ pain improved. Denies n/v fever sweats chills shortness of breath or chest pain. Objective Exam Vital Signs Date Time Temp Pulse Resp B/P (MAP) Pulse Ox O2 Delivery O2 Flow Rate FiO2 11/09/22 07:57 36.2 86 18 137/69 (91) 99 Room Air 11/09/22 04:00 36.4 77 16 115/66 (82) 92 Room Air 11/09/22 00:00 36.4 78 16 108/61 (77) 94 Room Air 11/08/22 20:12 36.1 92 16 152/78 (102) 96 Room Air 11/08/22 20:12 Room Air 11/08/22 16:00 37.3 96 14 152/77 (102) 96 Room Air 11/08/22 11:16 36.6 90 18 137/75 (95) 97 Room Air I & O 11/09/22 07:00 Intake Total 1840 ml Balance 1840 ml Capillary Refill : Less Than 3 Seconds General Appearance: No Apparent Distress, Thin HEENT: PERRL/EOMI, Normal ENT Inspection Neck: Normal Inspection, Non Tender Respiratory: Chest Non Tender, No Accessory Muscle Use, No Respiratory Distress Cardiovascular: Regular Rate, Rhythm, No JVD Peripheral Pulses: 3+ Carotid (R), 3+ Carotid (L), 3+ Radial Pulses (R), 3+ Radial Pulses (L) Gastrointestinal: distended (Upper abdomen), tenderness (Minimal tenderness right lower quadrant) Extremity: Non Tender, No Calf Tenderness Neurologic/Psychiatric: Alert, Oriented x3 Skin: Normal Color, Warm/Dry Lymphatic: No Adenopathy (neck, supra and subclavicular) Results Lab Laboratory Tests 11/09/22 05:05: White Blood Count 7.9, Red Blood Count 3.55L, Hemoglobin 7.6L, Hematocrit 26L, Mean Corpuscular Volume 74L, Mean Corpuscular Hemoglobin 21L, Mean Corpuscular Hemoglobin Concent 29L, Red Cell Distribution Width 18.5H, Platelet Count 344, Mean Platelet Volume 8.6L, Immature Granulocyte % (Auto) 1, Neutrophils (%) (Auto) 81H, Lymphocytes (%) (Auto) 9L, Monocytes (%) (Auto) 7, Eosinophils (%) (Auto) 2, Basophils (%) (Auto) 1, Neutrophils # (Auto) 6.4, Lymphocytes # (Auto) 0.7L, Monocytes # (Auto) 0.5, Eosinophils # (Auto) 0.2, Basophils # (Auto) 0.0, Immature Granulocyte # (Auto) 0.1, Sodium Level 138, Potassium Level 3.8, Chloride Level 107, Carbon Dioxide Level 24, Anion Gap 7, Blood Urea Nitrogen 5L , Creatinine 0.64, Estimat Glomerular Filtration Rate 96, BUN/Creatinine Ratio 8, Glucose Level 94, Calcium Level 7.9L, Magnesium Level 2.1 Microbiology 11/05/22 Blood Culture - Preliminary, Resulted No growth Assessment/Plan Assessment/Plan Assessment/Plan Right lower quadrant abdominal pain Chronic constipation Colitis cecum versus possible malignancy Anemia Patient hgb stable continue to monitor and transfuse if needed. Patient continue antibiotics for colitis. We will maintain a clear liquid at this time and bowel prep tomorrow. He wants to proceed with colonoscopy which he understands currently a little higher risk due to possible colitis. NPO after midnight. Prep today with go lytely for colonoscopy today. CITLALY DELUNA DO Nov 09, 2022 10:08
--- NOTE | 2022-11-09 15:11 | Progress Note - Hospitalist ---
Subjective HPI/CC On Admission Date Seen by Provider: Nov 09, 2022 Time Seen by Provider: 11:05 Jose Gilliam is a 77 year old male with PMH seizure disorder, BPH, who presented to the ER due to abnormal labs. He had some labs done by his PCP and was found to be anemic and was sent to the ER. He reports feeling weak. He has been lightheaded. He has had abdominal pain, mainly localized to the right lower quadrant. He has had abdominal bloating. He has lost weight recently. He denies bloody stools. He denies melena. He denies chest pain and shortness of breath. He denies nausea and vomiting. He has not had a colonoscopy for many years, but Dr. Rodriges performed his last one. He takes care of his at home. He is worried about who is going to be able to take care of her. Subjective/Events-last exam He continues to have some abdominal pain. He has been having small bowel movements. He is starting his colon prep. Objective Exam Vital Signs Vital Signs Date Time Temp Pulse Resp B/P (MAP) Pulse Ox O2 Delivery O2 Flow Rate FiO2 11/09/22 11:42 36.4 88 18 142/70 (94) 100 Room Air Capillary Refill : Less Than 3 Seconds General Appearance: No Apparent Distress, Thin Respiratory: Lungs Clear, No Respiratory Distress Cardiovascular: Regular Rate, Rhythm, No Murmur Gastrointestinal: Normal Bowel Sounds, Soft, Distended, Tenderness Extremity: Normal Inspection, No Pedal Edema Neurologic/Psychiatric: Alert, No Motor/Sensory Deficits Results/Procedures Lab Laboratory Tests 11/09/22 05:05 Patient resulted labs reviewed. Imaging: Reviewed Imaging Report Assessment/Plan Assessment and Plan Assess & Plan/Chief Complaint Sepsis due to colitis Iron deficiency anemia Microcytic anemia Weight loss Abdominal pain and bloating SIRS+ with fever, leukocytosis, tachycardia CT revealed possible colitis at the cecum, malignancy also possible, large stool burden Surgery consulted, planning for endoscopic evaluation, prep today and endoscopy Thursday Clear liquids IV fluids Rocephin and Flagyl Hgb stable Seizure disorder BPH Continue home meds as able Diagnosis/Problems Diagnosis/Problems (1) Sepsis Status: Acute Qualifiers: Sepsis type: sepsis due to unspecified organism Sepsis acute organ dysfunction status: without acute organ dysfunction Qualified Codes: A41.9 - Sepsis, unspecified organism (2) Colitis Status: Acute (3) Microcytic anemia Status: Acute (4) Weight loss Status: Acute (5) Abdominal pain Status: Acute Qualifiers: Abdominal location: right lower quadrant Qualified Codes: R10.31 - Right lower quadrant pain (6) Abdominal bloating Status: Acute ELIAZAR LIND MD Nov 09, 2022 15:11
[2022-11-09] MEDS: TAMSULOSIN 0.4 MG (FLOMAX) CAP PO SCH (17:44)
[2022-11-09] MEDS: cefTRIAXone 1 GM/NS 50 ML IVPB IV SCH ×2 (18:15)
[2022-11-09] MEDS: ACETAMINOPHEN 325 MG TABLET PO PRN (20:12)
[2022-11-10] VITALS (9 sets, daily range): BP systolic 120–141; BP diastolic 59–82
[2022-11-10] MEDS: metroNIDAZOLE 500MG/100ML IVPB 100 ML IV SCH ×2 (03:05→12:01)
[2022-11-10 05:47] LABS: BASOPHILS % (AUTO) 1 % (0-10); EOSINOPHILS # (AUTO) 0.2 10^3/uL (0.0-0.3); EOSINOPHILS % (AUTO) 2 % (0-10); HEMATOCRIT 27 % (40-54); HEMOGLOBIN 7.7 g/dL (13.3-17.7); LYMPHOCYTES # (AUTO) 0.7 10^3/uL (1.0-4.0); LYMPHOCYTES % (AUTO) 9 % (12-44); MEAN CORPUSCULAR HEMOGLOBIN 21 pg (25-34); MEAN CORPUSCULAR HGB CONC 28 g/dL (32-36); MEAN CORPUSCULAR VOLUME 75 fL (80-99); MEAN PLATELET VOLUME 8.1 fL (9.0-12.2); MONOCYTES # (AUTO) 0.5 10^3/uL (0.0-1.0); MONOCYTES % (AUTO) 6 % (0-12); NEUTROPHILS # (AUTO) 6.7 10^3/uL (1.8-7.8); NEUTROPHILS % (AUTO) 82 % (42-75); PLATELET COUNT 344 10^3/uL (130-400); WHITE BLOOD COUNT 8.1 10^3/uL (4.3-11.0)
[2022-11-10 06:05] LABS: CALCIUM 7.8 MG/DL (8.5-10.1); CREATININE SERUM 0.64 MG/DL (0.60-1.30); MAGNESIUM 1.8 MG/DL (1.6-2.4); POTASSIUM 3.8 MMOL/L (3.6-5.0)
[2022-11-10] MEDS: POTASSIUM CL 10MEQ/50ML IVPB 50 ML IV SCH (06:17)
[2022-11-10] MEDS: POTASSIUM BICARB 20 MEQ (EFFER-K) TABLET PO SCH (06:17)
[2022-11-10] MEDS: KCL 20 MEQ TAB (K-DUR) PO SCH (06:17)
[2022-11-10] MEDS: MAGNESIUM 1 GM/100 ML IVPB 100 ML IV SCH ×2 (06:18→06:34)
[2022-11-10] MEDS ORDERED: LACTATED RINGERS 1,000 ML IV STA (07:10)
[2022-11-10] MEDS ORDERED: LACTATED RINGERS 1,000 ML IV ONE (07:27)
[2022-11-10] MEDS ORDERED: PROPOFOL INJECTION 50 ML IV ONE ×2 (07:37→08:32)
[2022-11-10] MEDS: carBAMazepine 200 MG (TEGretol) TAB PO SCH ×2 (09:21→17:46)
[2022-11-10] MEDS: DOCUSATE SODIUM 100 MG (COLACE) CAP PO SCH ×2 (09:22→20:47)
[2022-11-10] MEDS: SENNOSIDES 8.6 MG (SENOKOT) TAB PO SCH ×2 (09:22→20:47)
[2022-11-10] MEDS: polyethylene glycoL POWDER 17 GM (MIRALAX) PACK PO SCH ×2 (09:22→20:47)
--- NOTE | 2022-11-10 09:46 | Anesthesia-General Post-Op ---
MAC Patient Condition Mental Status/LOC: Same as Preop Cardiovascular: Satisfactory Nausea/Vomiting: Absent Respiratory: Satisfactory Pain: Controlled Complications: Absent Post Op Complications Complications None Follow Up Care/Instructions Patient Instructions None needed. Anesthesiology Discharge Order Discharge Order Patient is doing well, no complaints, stable vital signs, no apparent adverse anesthesia problems. No complications reported per nursing. KRISTI BRUNO SPINNER HYDRAULIC Nov 10, 2022 09:46
--- NOTE | 2022-11-10 12:36 | Progress Note - Surgery ---
Subjective Date Seen by a Provider: Nov 10, 2022 Time Seen by a Provider: 07:25 Subjective/Events-last exam No longer having right lower quadrant pain. Tolerated prep. Hgb stable. No n/v fever sweats chills shortness of breath or chest pain. Objective Exam Vital Signs Date Time Temp Pulse Resp B/P (MAP) Pulse Ox O2 Delivery O2 Flow Rate FiO2 11/10/22 09:00 36.6 76 18 141/77 (98) 96 Room Air 11/10/22 08:40 36.70814 92 16 96 Room Air 11/10/22 08:35 36.84284 89 16 100 Room Air 11/10/22 03:34 36.8 82 18 126/59 (81) 94 Room Air 11/09/22 23:40 36.7 93 18 134/63 (86) 93 Room Air 11/09/22 20:20 36.9 108 18 119/64 (82) 93 Room Air 11/09/22 20:00 Room Air 11/09/22 16:09 37.0 95 20 148/74 (98) 97 Room Air I & O 11/10/22 07:00 Intake Total 5600 ml Balance 5600 ml Capillary Refill : Less Than 3 Seconds General Appearance: No Apparent Distress, Thin HEENT: PERRL/EOMI, Normal ENT Inspection Neck: Normal Inspection, Non Tender Respiratory: Lungs Clear, No Respiratory Distress Cardiovascular: Regular Rate, Rhythm, No Murmur Peripheral Pulses: 3+ Carotid (R), 3+ Carotid (L), 3+ Radial Pulses (R), 3+ Radial Pulses (L) Gastrointestinal: distended (Upper abdomen), tenderness (Minimal tenderness right lower quadrant) Extremity: Normal Inspection, No Pedal Edema Neurologic/Psychiatric: Alert, No Motor/Sensory Deficits Skin: Normal Color, Warm/Dry Lymphatic: No Adenopathy (neck, supra and subclavicular) Results Lab Laboratory Tests 11/10/22 05:11: White Blood Count 8.1, Red Blood Count 3.65L, Hemoglobin 7.7L, Hematocrit 27L, Mean Corpuscular Volume 75L, Mean Corpuscular Hemoglobin 21L, Mean Corpuscular Hemoglobin Concent 28L, Red Cell Distribution Width 19.8H, Platelet Count 344, Mean Platelet Volume 8.1L, Immature Granulocyte % (Auto) 1, Neutrophils (%) (Auto) 82H, Lymphocytes (%) (Auto) 9L, Monocytes (%) (Auto) 6, Eosinophils (%) (Auto) 2, Basophils (%) (Auto) 1, Neutrophils # (Auto) 6.7, Lymphocytes # (Auto) 0.7L, Monocytes # (Auto) 0.5, Eosinophils # (Auto) 0.2, Basophils # (Auto) 0.0, Immature Granulocyte # (Auto) 0.0, Sodium Level 139, Potassium Level 3.8, Chloride Level 105, Carbon Dioxide Level 24, Anion Gap 10, Blood Urea Nitrogen 5L, Creatinine 0.64, Estimat Glomerular Filtration Rate 96, BUN/Creatinine Ratio 8, Glucose Level 96, Calcium Level 7.8L, Magnesium Level 1.8 Microbiology 11/05/22 Blood Culture - Preliminary, Resulted No growth Assessment/Plan Assessment/Plan Assessment/Plan Right lower quadrant abdominal pain Chronic constipation Colitis cecum versus possible malignancy Anemia Patient hgb stable continue to monitor and transfuse if needed. Patient continue antibiotics for colitis. He wants to proceed with colonoscopy which he understands currently a little higher risk due to possible colitis. NPO For colonoscopy CITLALY DELUNA DO Nov 10, 2022 12:36
--- NOTE | 2022-11-10 12:38 | Progress Note-Post Operative ---
Post-Operative Progess Note Surgeon (s)/Management Professional (s) Surgeon CITLALY DELUNA DO Management Professional: na Pre-Operative Diagnosis anemia, rlq abdominal pain Post-Operative Diagnosis right colon mass, colon polyps Procedure & Operative Findings Date of Procedure 11/10/22 Procedure Performed/Findings colonoscopy c cold biopsies cecal mass and genie inking, hot bx polypectomy x 2 Anesthesia Type per academic affairs specialist Estimated Blood Loss Estimated blood loss (mL): scant Specimens/Packing Specimens Removed cecal mass, colon polyps CITLALY DELUNA DO Nov 10, 2022 12:38
[2022-11-10] MEDS ORDERED: IOHEXOL 350 MG/ML 100 ML (OMNIPAQUE 350) VIAL IV ONE (13:00)
[2022-11-10] MEDS ORDERED: HOLD METFORMIN - RECEIVED CONTRAST 20 ML VIAL IV SCH (13:00)
[2022-11-10] MEDS ORDERED: NS 100 ML (IVPB) BAG IV ONE (13:00)
--- NOTE | 2022-11-10 14:30 | Progress Note - Hospitalist ---
Subjective HPI/CC On Admission Date Seen by Provider: Nov 10, 2022 Jose Gilliam is a 77 year old male with PMH seizure disorder, BPH, who presented to the ER due to abnormal labs. He had some labs done by his PCP and was found to be anemic and was sent to the ER. He reports feeling weak. He has been lightheaded. He has had abdominal pain, mainly localized to the right lower quadrant. He has had abdominal bloating. He has lost weight recently. He denies bloody stools. He denies melena. He denies chest pain and shortness of breath. He denies nausea and vomiting. He has not had a colonoscopy for many years, but Dr. Rodriges performed his last one. He takes care of his at home. He is worried about who is going to be able to take care of her. Subjective/Events-last exam Pt reports doing well. Just back from PACU. at bedside. We discussed findings from scope. They are working on arranging care for so he can have resection as an outpatient. Objective Exam Vital Signs Vital Signs Date Time Temp Pulse Resp B/P (MAP) Pulse Ox O2 Delivery O2 Flow Rate FiO2 11/10/22 13:23 36.6 97 16 139/82 (101) 97 Room Air Capillary Refill : Less Than 3 Seconds General Appearance: No Apparent Distress, Chronically ill, Thin Respiratory: Lungs Clear, No Respiratory Distress Cardiovascular: Regular Rate, Rhythm, No Murmur Gastrointestinal: Normal Bowel Sounds, Distended Neurologic/Psychiatric: Alert, Oriented x3 Results/Procedures Lab Laboratory Tests 11/10/22 05:11 Patient resulted labs reviewed. Imaging: Reviewed Imaging Report Assessment/Plan Assessment and Plan Assess & Plan/Chief Complaint Sepsis due to colitis Iron deficiency anemia Microcytic anemia Weight loss Abdominal pain and bloating SIRS+ with fever, leukocytosis, tachycardia CT revealed possible colitis at the cecum, malignancy also possible, large stool burden Colonoscopy revealed cecal mass- planning outpatient follow up Surgery consulted Avi Hgb stable Seizure disorder BPH Continue home meds as able CASSIDY HONG MD Nov 10, 2022 14:30
--- NOTE | 2022-11-10 15:54 | Diagnostic Imaging Report ---
PROCEDURE: CT chest with contrast only. TECHNIQUE: Multiple contiguous axial images were obtained through the chest after administration of intravenous contrast. Auto Exposure Controls were utilized during the CT exam to meet ALARA standards for radiation dose reduction. INDICATION: Right colonic mass. Study is performed to evaluate for possible metastatic disease in the chest. FINDINGS: There is mild background centrilobular emphysema. There is an approximately 0.4 cm nodule along the right minor fissure. This may represent area of scarring. Similar finding is seen along the pleural surface of the right middle lobe. There is mild pleural fluid, greater on the right with mild subjacent atelectasis in the right lower lobe. Small amount of pericardial fluid is noted. Otherwise, no definite mass or focal infiltrate is identified. There is coronary artery calcification without evidence of pathologically enlarged adenopathy within the chest. Advanced degenerative findings are present within the shoulder girdles, greater on the left. There is evidence of old sternal body fracture. Below the diaphragm, note is made of numerous large hepatic cysts. There is diffuse dilatation of visualized small bowel in the upper abdomen. IMPRESSION: Tiny nodules in the right lung are likely related to scarring or granulomatous exposure. No suspicious mass is identified, however there is mild pleural and pericardial effusion. There is evidence of small bowel dilatation, indicating distal obstruction. Dictated by: Dictated on workstation # [id number]
[2022-11-10] MEDS: TAMSULOSIN 0.4 MG (FLOMAX) CAP PO SCH (17:46)
--- NOTE | 2022-11-11 00:04 | OPERATIVE REPORT ---
DATE OF SERVICE: 11/10/2022 PREOPERATIVE DIAGNOSES: Anemia, right lower quadrant abdominal pain. POSTOPERATIVE DIAGNOSES: Right colon mass, colon polyps. PROCEDURE: Colonoscopy with cold biopsies of cecal mass and Lizette inking, hot biopsy polypectomy x2. SURGEON: Citlaly Angel DO ANESTHESIA: Per AIRPORT OPERATIONS MANAGER. ESTIMATED BLOOD LOSS: Scant. COMPLICATIONS: None. INDICATIONS: The patient is a 77-year-old male who presented with right lower quadrant abdominal pain. He is also anemic. He has chronic constipation issues. It has been quite some time since his last colonoscopy. He was recommended to have colonoscopy per further evaluation due to the CT scan findings of questionable cecal mass. He understands risks and benefits and wished to proceed. Consent was signed in chart. DESCRIPTION OF PROCEDURE: The patient was taken to the endoscopy suite, placed in left lateral recumbent position. Timeout was performed. Digital rectal exam was performed. No palpable polyps, masses or ulcerations. Scope was inserted in the rectum and advanced all the way to the cecum. After the patient will be repositioned a couple times, moved to the cecum, a large cecal mass evident. It appeared friable. Multiple cold biopsies were obtained. Just distal to this area, inking was performed in a couple of spots, a total of 3 mL of ink was used. Scope was then continued slowly retracted back. No polyps, masses or ulcerations within the ascending and transverse colon. In descending colon, a small polyp was present, which hot biopsy polypectomy was performed. Scope continued to be slowly retracted back. No polyps, masses or ulcerations in the sigmoid colon. Once in the rectal vault, another polyp was present, which hot biopsy polypectomy was performed. Scope was retroflexed noting no other pathology. Scope was returned to its normal position, slowly withdrawn until completely removed. The patient tolerated the procedure well without complications, taken to recovery room in stable condition. RECOMMENDATIONS: The patient will await biopsy results. We get CT scan chest to assist in staging and order a CEA. The patient will need repeat colonoscopy likely in a year after surgical resection. Job ID: [id number] DocumentID: [id number] Dictated Date: 11/10/2022 22:00:11 Community Health Advisor Date: 11/11/2022 00:02:00 Dictated By: CITLALY ANGEL DO
[2022-11-11 03:32] VITALS: BP 113/65
[2022-11-11 06:12] LABS: BASOPHILS # (AUTO) 0.1 10^3/uL (0.0-0.1); BASOPHILS % (AUTO) 0 % (0-10); EOSINOPHILS # (AUTO) 0.2 10^3/uL (0.0-0.3); EOSINOPHILS % (AUTO) 1 % (0-10); HEMATOCRIT 30 % (40-54); HEMOGLOBIN 8.7 g/dL (13.3-17.7); LYMPHOCYTES # (AUTO) 0.8 10^3/uL (1.0-4.0); LYMPHOCYTES % (AUTO) 7 % (12-44); MEAN CORPUSCULAR HEMOGLOBIN 22 pg (25-34); MEAN CORPUSCULAR HGB CONC 29 g/dL (32-36); MEAN CORPUSCULAR VOLUME 75 fL (80-99); MONOCYTES # (AUTO) 0.7 10^3/uL (0.0-1.0); MONOCYTES % (AUTO) 5 % (0-12); NEUTROPHILS # (AUTO) 10.2 10^3/uL (1.8-7.8); NEUTROPHILS % (AUTO) 85 % (42-75); PLATELET COUNT 385 10^3/uL (130-400)
[2022-11-11 06:29] LABS: CALCIUM 8.1 MG/DL (8.5-10.1); CREATININE SERUM 0.67 MG/DL (0.60-1.30); MAGNESIUM 1.9 MG/DL (1.6-2.4); POTASSIUM 3.7 MMOL/L (3.6-5.0)
[2022-11-11] MEDS: POTASSIUM BICARB 20 MEQ (EFFER-K) TABLET PO SCH (06:33)
[2022-11-11] MEDS: POTASSIUM CL 10MEQ/50ML IVPB 50 ML IV SCH (06:33)
[2022-11-11] MEDS: KCL 20 MEQ TAB (K-DUR) PO SCH (06:34)
[2022-11-11] MEDS: MAGNESIUM 1 GM/100 ML IVPB 100 ML IV SCH ×3 (06:35→08:06)
[2022-11-11] MEDS ORDERED: KCL 20 MEQ TAB (K-DUR) PO ONE (06:45)
[2022-11-11 06:48] LABS: ANISOCYTOSIS MODERATE; LYMPHOCYTES % (MANUAL) 8 %; MICROCYTOSIS MODERATE; MONOCYTES % (MANUAL) 4 %; NEUTROPHILS % (MANUAL) 88 %; SCHISTOCYTES SLIGHT
[2022-11-11 06:49] LABS: ELLIPT/OVALOCYTES SLIGHT; HYPOCHROMASIA SLIGHT
[2022-11-11 07:29] VITALS: BP 187/96
[2022-11-11] MEDS: carBAMazepine 200 MG (TEGretol) TAB PO SCH (08:07)
[2022-11-11] MEDS: SENNOSIDES 8.6 MG (SENOKOT) TAB PO SCH (08:07)
[2022-11-11] MEDS: IRON SUCROSE 200 MG/10 ML (VENOFER) VIAL IV SCH (08:07)
[2022-11-11] MEDS: DOCUSATE SODIUM 100 MG (COLACE) CAP PO SCH (08:07)
[2022-11-11] MEDS: polyethylene glycoL POWDER 17 GM (MIRALAX) PACK PO SCH (08:07)
[2022-11-11 12:55] VITALS: BP 135/93
--- NOTE | 2022-11-11 12:57 | Discharge Inst-Simple/Standard ---
Discharge Inst-Standard Discharge Medications New, Converted or Re-Newed RX: Transmitted to Pharmacy Patient Instructions/Follow Up Plan of Care/Instructions/FU: Please continue to take your medications as written. Please follow up with your primary care doctor to follow up this hospital stay. Please see Dr Angel as scheduled next week to be scheduled for surgery. Activity as Tolerated: Yes Discharge Diet: No Restrictions Return to The Hospital For: Chest pain, abdominal pain, shortness of breath, fever, weakness, if you feel you are getting worse. CASSIDY HONG MD Nov 11, 2022 12:57
--- NOTE | 2022-11-11 13:25 | Discharge Summary ---
Diagnosis/Chief Complaint Date of Admission Nov 05, 2022 at 18:23 Date of Discharge Discharge Date: Nov 11, 2022 Admission Diagnosis Sepsis due to colitis Primary Care Jay Stafford DO Discharge Diagnosis (1) Sepsis Status: Acute (2) Colitis Status: Acute (3) Microcytic anemia Status: Acute (4) Weight loss Status: Acute (5) Abdominal pain Status: Acute (6) Abdominal bloating Status: Acute Discharge Summary Discharge Physical Exam Allergies: Uncoded Allergies: INFUSION FOR OSTEOPORSIS (Allergy, Unknown, 11/05/22) Vitals & I&Os Vital Signs Date Time Temp Pulse Resp B/P (MAP) Pulse Ox O2 Delivery O2 Flow Rate FiO2 11/11/22 13:55 36.4 100 18 135/93 97 Room Air General Appearance: No Apparent Distress, Chronically ill, Thin Cardiovascular: Regular Rate, Rhythm, No Murmur Neurologic/Psychiatric: Alert, Oriented x3 Hospital Course Patient was admitted to the hospital secondary to sepsis concerning for colitis. Surgery was consulted and he was treated with IV antibiotics. He underwent colonoscopy which revealed a cecal mass. Biopsies were obtained. He also had a polypectomy x2. He is a primary caregiver for his and so social organization professor was consulted to assist with arrangements regarding his surgery. Ultimately surgery recommended outpatient follow-up for colon resection and social organization professor was able to arrange for shelter placement for both the patient and his during this perioperative time to account for healing. I did call and speak with his primary care physician, Dr. Stafford, to update him on this admission and plan. He was discharged in improved and stable condition. Labs (last 24 hrs) Microbiology 11/10/22 MRSA Screen - Final, Complete MRSA not isolated 11/05/22 Blood Culture - Final, Complete No growth Patient resulted labs reviewed. Imaging: Reviewed Imaging Report Discussion & Recommendations Discharge Planning: >30 minutes discharge planning Discharge Home Medications: Active Scripts Active Reported Gas-X Ultra Strength (Simethicone) 180 Mg Capsule 180 Mg PO Q8H PRN Tylenol 8 Hour (Acetaminophen) 650 Mg Tablet.er 1,300 Mg PO Q8H TAKES 2 (650MG) TABS Multivitamin 1 Each Tablet 1 Each PO DAILY Vitamin E (Vitamin E Mixed) 400 Unit Tablet 400 Unit PO DAILY Vitamin D3 (Cholecalciferol (Vitamin D3)) 125 Mcg (5000 Unit) Tab.rapdis 125 Mcg PO DAILY Vitamin C (Ascorbic Acid) 1,000 Mg Tablet 1,000 Mg PO DAILY Flomax (Tamsulosin HCl) 0.4 Mg Cap 0.4 Mg PO 1800 W/MEAL Levetiracetam 1,000 Mg Tablet 1,500 Mg PO Q12H TAKES 1 & (1000MG) TABS Carbamazepine ER (Carbamazepine) 400 Mg Tab.er.12h 400 Mg PO BID WITH MEALS Instructions to patient/family Please see electronic discharge instructions given to patient. Problem Qualifiers (1) Sepsis: Sepsis type: sepsis due to unspecified organism Sepsis acute organ dysfunction status: without acute organ dysfunction Qualified Codes: A41.9 - Sepsis, unspecified organism (2) Abdominal pain: Abdominal location: right lower quadrant Qualified Codes: R10.31 - Right lower quadrant pain CASSIDY HONG MD Nov 11, 2022 13:25
[2022-11-11 13:55] VITALS: BP 135/93
--- NOTE | 2022-11-11 21:06 | Progress Note - Surgery ---
Subjective Date Seen by a Provider: Nov 11, 2022 Time Seen by a Provider: 12:00 Subjective/Events-last exam No pain. Hgb stable. Wanting to go home. No evidence of bleeding at this time. Denies n/v fever sweats chills shortness of breath or chest pain. Objective Exam Vital Signs Date Time Temp Pulse Resp B/P (MAP) Pulse Ox O2 Delivery O2 Flow Rate FiO2 11/11/22 13:55 36.4 100 18 135/93 97 Room Air 11/11/22 12:55 36.4 100 18 135/93 (107) 97 Room Air 11/11/22 08:00 Room Air 11/11/22 07:29 36.6 91 18 187/96 (126) 97 Room Air 11/11/22 03:32 37.1 89 18 113/65 (81) 97 Room Air 11/10/22 23:17 36.6 95 18 128/73 (91) 97 Room Air I & O 11/11/22 07:00 Intake Total 1100 ml Balance 1100 ml Capillary Refill : Less Than 3 Seconds General Appearance: No Apparent Distress, Chronically ill, Thin HEENT: PERRL/EOMI, Normal ENT Inspection Neck: Normal Inspection, Non Tender Respiratory: Chest Non Tender, No Accessory Muscle Use, No Respiratory Distress Cardiovascular: Regular Rate, Rhythm, No JVD Peripheral Pulses: 3+ Carotid (R), 3+ Carotid (L), 3+ Radial Pulses (R), 3+ Radial Pulses (L) Gastrointestinal: non tender, soft, distended (Upper abdomen minimal); No tenderness Extremity: Normal Inspection, No Pedal Edema Neurologic/Psychiatric: Alert, Oriented x3 Skin: Normal Color, Warm/Dry Lymphatic: No Adenopathy (neck, supra and subclavicular) Results Lab Laboratory Tests 11/11/22 05:18: White Blood Count 12.0H, Red Blood Count 4.05L, Hemoglobin 8.7L, Hematocrit 30L, Mean Corpuscular Volume 75L, Mean Corpuscular Hemoglobin 22L, Mean Corpuscular Hemoglobin Concent 29L, Red Cell Distribution Width 20.3H, Platelet Count 385, Mean Platelet Volume 8.0L, Immature Granulocyte % (Auto) 1, Neutrophils (%) (Auto) 85H, Lymphocytes (%) (Auto) 7L, Monocytes (%) (Auto) 5, Eosinophils (%) (Auto) 1, Basophils (%) (Auto) 0, Neutrophils # (Auto) 10.2H, Lymphocytes # (Auto) 0.8L, Monocytes # (Auto) 0.7, Eosinophils # (Auto) 0.2, Basophils # (Auto) 0.1, Immature Granulocyte # (Auto) 0.1, Neutrophils % (Manual) 88, Lymphocytes % (Manual) 8, Monocytes % (Manual) 4, Hypochromasia SLIGHT, Anisocytosis MODERATE, Microcytosis MODERATE, Elliptocytes SLIGHT, Schistocytes SLIGHT, Sodium Level 138, Potassium Level 3.7, Chloride Level 106, Carbon Dioxide Level 23, Anion Gap 9, Blood Urea Nitrogen 7, Creatinine 0.67, Estimat Glomerular Filtration Rate 95, BUN/Creatinine Ratio 10, Glucose Level 101, Calcium Level 8.1L, Magnesium Level 1.9, Carcinoembryonic Antigen <1.7 Microbiology 11/10/22 MRSA Screen - Final, Complete MRSA not isolated 11/05/22 Blood Culture - Final, Complete No growth Assessment/Plan Assessment/Plan Assessment/Plan Right lower quadrant abdominal pain Chronic constipation Colitis cecum versus possible malignancy Anemia cecal mass s/p colonoscopy c biopsy and genie inking Patient hgb stable Needs right colectomy due to social issues he wants to go home and plan surgery. His hgb is stable currently so i feel this is okay. if has any change he should be seen at that time otherwise we'll plan on seeing him Thursday and plan surgery. This is the cause of his anemia. Patient and family agree with plan. CITLALY DELUNA DO Nov 11, 2022 21:06
--- NOTE | 2022-11-20 11:27 | Physician Query Clarification ---
PQ-Further Specificity Admission/Discharge Admission Date: Nov 05, 2022 at 18:23 Discharge Date: Nov 11, 2022 at 13:58 Dr. Irizarry, The medical record reflects the following clinical scenario: History/Risk Factors: sepsis, colitis, RLQ pain Clinical Findings: Colonoscopy - friable cecal mass, protein IHC analysis - pertinent hx malignant neoplasm colon. Specimen - cecal mass Treatment: bx cecal mass, plan for resection on outpatient Question: Can you further specify cecal mass per the clinical indicators above? Please document a response in the Progress Notes or Discharge Summary. 1. Ca cecum 2. polyp cecum not further specified 3. Other, with explanation of the clinical findings. 4. Clinically undetermined, no explanation for the clinical findings. PHYSICIAN RESPONSE Can you specify per above: Other, explanation/clinical finding Explanation/Clinical Findings Cecal mass biopsied and pending path at the time of DC with plan for resection and likely neoplastic. 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 The purpose of this communication is to more accurately reflect the complexity of your patients condition. The fact that a question is asked does not imply that any particular answer is desired or expected. Thank you for your timely response to this clarification. Requestors name: Rochelle THIS PHYSICIAN QUERY FORM IS A PERMANENT PART OF THE MEDICAL RECORD ROCHELLE BASS Nov 20, 2022 11:26 CASSIDY IRIZARRY MD Nov 26, 2022 15:20
== END 2022-11-11 13:58 | disposition home or self-care (01) | DRG 872 ==
LOC: EDUNIT# 15:50 → ER 15:51 → 4TH 18:23
PROVIDERS: ADMIT Internal Medicine; ATTEND Internal Medicine
PROC: 0DBM8ZZ Excision of Descending Colon, Via Natural or Artificial Opening Endoscopic (ICD-10-PCS; 2022-11-10)
PROC: 0DBP8ZZ Excision of Rectum, Via Natural or Artificial Opening Endoscopic (ICD-10-PCS; 2022-11-10)
PROC: 0DBH8ZX Excision of Cecum, Via Natural or Artificial Opening Endoscopic, Diagnostic (ICD-10-PCS; principal; 2022-11-10 07:33)
DX: A41.9 Sepsis, unspecified organism (principal); D62 Acute posthemorrhagic anemia; C18.0 Malignant neoplasm of cecum; K52.9 Noninfective gastroenteritis and colitis, unspecified; K63.5 Polyp of colon; K59.09 Other constipation; D50.9 Iron deficiency anemia, unspecified; N40.1 Benign prostatic hyperplasia with lower urinary tract symptoms; Z66 Do not resuscitate; N32.81 Overactive bladder; G40.909 Epilepsy, unspecified, not intractable, without status epilepticus; M19.90 Unspecified osteoarthritis, unspecified site; H54.8 Legal blindness, as defined in USA; H91.90 Unspecified hearing loss, unspecified ear; Z87.891 Personal history of nicotine dependence; Z79.899 Other long term (current) drug therapy; Z79.891 Long term (current) use of opiate analgesic
CPT/HCPCS: 36415; 71260; 74018; 74019; 74177; 80048; 80053; 81000; 82378; 82728; 83540; 83550; 83605; 83690; 83735; 85007; 85025; 85027; 85610; 85730; 86850; 86900; 86901; 86920; 87040; 87081; 88305; 88341; 88342; 88360; 96361; 96365; 96375

== ENCOUNTER → 2022-11-19 | Outpatient (CLI) | payer MEDICARE, MEDICAID ==
[~2022-11-19] MED LIST changes: +ACET-2840 PO; +SIME180C4 PO
== END ==
LOC: LAB 10:28
PROVIDERS: ATTEND Surgery
DX: R19.09 Other intra-abdominal and pelvic swelling, mass and lump (principal)
CPT/HCPCS: 36415; 82378

== ENCOUNTER 2022-11-26 12:34 | Outpatient (CLI) | payer MEDICARE, MEDICAID ==
[~2022-11-26] VITALS: Ht 167.6 cm; Wt 63.3 kg
[2022-11-26] MEDS ORDERED: ACHD5005 PO (13:38)
[2022-11-26] MEDS ORDERED: DOCU100T2 PO (13:38)
== END 2022-11-26 13:54 ==
LOC: PREOP 12:34
PROVIDERS: ATTEND Surgery
DX: Z01.818 Encounter for other preprocedural examination (principal)

== ENCOUNTER → 2022-12-01 | Outpatient (CLI) | payer MEDICARE, MEDICAID ==
[~2022-12-01] MED LIST changes: +CATHETER FLUSH 10 ML SYR IVP PRN; +DOCU100T2 PO
--- NOTE | 2022-12-02 14:13 | Diagnostic Imaging Report ---
Indication: Colon carcinoma, initial staging. Serum blood glucose level time injection is 86 g/dL. Patient was administered 9.6 mCi F-18 FDG intravenously in the left antecubital location and PET imaging was performed from the top of skull to mid thighs. Noncontrast CT was also performed for attenuation correction and anatomic correlation. No prior PET/CT studies available for comparison. There is symmetric activity throughout the brain. The soft tissues of the neck are unremarkable. No mediastinal or hilar hypermetabolism is identified. No pulmonary parenchymal hypermetabolism is identified. There are numerous cystic lesions throughout the liver. Physiologic activity throughout the gastrointestinal genitourinary tract is noted. There is abnormal hypermetabolism in the right colon in the region of the cecum at the area of previously described wall thickening. SUV max approximately 15. No definite hypermetabolic abdominal or pelvic lymphadenopathy is seen. Osseous structures are unremarkable. IMPRESSION: Hypermetabolic mass in the cecum consistent with patient's primary colon malignancy. No hypermetabolic lymphadenopathy is identified. Dictated by: Dictated on workstation # [id number]
== END ==
LOC: RAD 07:21
PROVIDERS: ATTEND Surgery
DX: C18.9 Malignant neoplasm of colon, unspecified (principal)
CPT/HCPCS: 82947

== ENCOUNTER 2022-12-04 07:56 | Inpatient (IN) | payer MEDICARE, MEDICAID ==
[~2022-12-04 07:56] MED LIST changes: -CATHETER FLUSH 10 ML SYR IVP PRN
[2022-12-04] MEDS ORDERED: LIDOCAINE/EPI 1%-1:100,000 (XYLOCAINE) 20ML ONE (08:05)
[2022-12-04 08:30] VITALS: BP 146/80
== END 2022-12-04 11:00 | DRG 395 ==
LOC: 4TH 07:56 → SURG 07:57
PROVIDERS: ADMIT Surgery; ATTEND Surgery
DX: K63.9 Disease of intestine, unspecified (principal); Z53.9 Procedure and treatment not carried out, unspecified reason

== ENCOUNTER 2022-12-04 14:09 | Outpatient (CLI) | payer MEDICARE, MEDICAID ==
[~2022-12-04] VITALS: Ht 167.6 cm; Wt 63.3 kg
== END 2022-12-04 15:25 ==
LOC: PREOP 14:09
PROVIDERS: ATTEND Surgery
DX: Z01.818 Encounter for other preprocedural examination (principal)

== ENCOUNTER 2022-12-10 05:50 | Inpatient (IN) | payer MEDICARE, MEDICAID ==
[~2022-12-10] VITALS: Ht 167.6 cm; Wt 63.3 kg
[2022-12-10] VITALS (13 sets, daily range): BP systolic 107–146; BP diastolic 61–80
[2022-12-10] MEDS ORDERED: ceFAZolin INJECTION 2,000 MG in NS (IVPB) 50 ML 50 ML IV ONE ×4 (06:00)
[2022-12-10] MEDS ORDERED: LACTATED RINGERS 1,000 ML IV PRN (06:00)
[2022-12-10] MEDS ORDERED: NS (IVPB) 50 ML 50 ML ONE (06:19)
[2022-12-10] MEDS ORDERED: ceFAZolin INJECTION 2,000 MG ONE (06:19)
[2022-12-10] MEDS: LACTATED RINGERS 1,000 ML IV PRN ×2 (06:34→08:40)
[2022-12-10] MEDS ORDERED: LIDOCAINE 1% w/EPI 1:100,000 20 ML VIAL ONE (07:30)
--- NOTE | 2022-12-10 07:45 | Progress Note-Pre Operative ---
Pre-Operative Progress Note Date H&P Reviewed: Dec 10, 2022 Time H&P Reviewed: 07:45 History & Physical: H&P Reviewed, Patient Examed, No changes noted Pre-Operative Diagnosis: right cecal mass CITLALY DELUNA DO Dec 10, 2022 07:45
[2022-12-10] MEDS ORDERED: fentaNYL INJECTION 100 MCG/2 ML VIAL ONE ×2 (07:51→10:37)
[2022-12-10] MEDS ORDERED: SEVOFLURANE (ULTANE) 15 ML INHAL SOLN ONE ×3 (07:51→10:06)
[2022-12-10] MEDS ORDERED: ONDANSETRON 4 MG/2 ML (SDV) Z0FRAN ONE (07:51)
[2022-12-10] MEDS ORDERED: LIDOCAINE PF 2% 5 ML VIAL ONE (07:51)
[2022-12-10] MEDS ORDERED: proPOfol 200 MG/20 ML (DIPRIVAN) VIAL IV ONE (07:51)
[2022-12-10] MEDS ORDERED: PHENYLEPHRINE 100 MCG/ML 10 ML (ANESTHESIA) SYR ONE (09:07)
[2022-12-10] MEDS ORDERED: GLYCOPYRROLATE INJ 0.2 MG/ML 2 ML VIAL ONE (10:05)
[2022-12-10] MEDS ORDERED: NEOSTIGMINE (BLOXIVERZ ) 1 MG/1ML 10 ML VIAL ONE (10:05)
--- NOTE | 2022-12-10 10:15 | Progress Note-Post Operative ---
Post-Operative Progess Note Surgeon (s)/Glass Etcher (s) Surgeon CITLALY DELUNA DO Glass Etcher: Dr. Garrison Pre-Operative Diagnosis right cecal mass Post-Operative Diagnosis same Procedure & Operative Findings Date of Procedure 12/10/22 Procedure Performed/Findings open right colon resection en block with retroperitoneal dissection Anesthesia Type general Estimated Blood Loss Estimated blood loss (mL): minimal Specimens/Packing Specimens Removed right colon CITLALY DELUNA DO Dec 10, 2022 10:15
[2022-12-10] MEDS ORDERED: morphine INJ 10 MG/ML 1ML (SYR OR VIAL) IVP ONE (10:30)
[2022-12-10] MEDS ORDERED: fentaNYL INJECTION 100 MCG/2 ML VIAL IVP ONE (10:30)
[2022-12-10] MEDS ORDERED: MEPERIDINE (DEMEROL) INJ 50 MG/ML IVP ONE (10:30)
[2022-12-10] MEDS ORDERED: ONDANSETRON 4 MG/2 ML (SDV) Z0FRAN IVP PRN ×2 (10:30)
[2022-12-10] MEDS: ceFAZolin INJECTION 2,000 MG in NS (IVPB) 50 ML 50 ML IV SCH ×2 (13:13→18:13)
[2022-12-10] MEDS: LACTATED RINGERS 1,000 ML IV SCH ×2 (13:14→13:54)
[2022-12-10] MEDS: morphine INJ 4 MG/ML 1 ML (VIAL/SYRINGE) IVP PRN ×2 (13:42→17:02)
[2022-12-10] MEDS: metroNIDAZOLE 500MG/100ML IVPB 100 ML IV SCH ×2 (13:53→20:50)
--- NOTE | 2022-12-10 15:59 | Consultation - Hospitalist ---
HPI History of Present Illness: HPI/Chief Complaint Patient is a 77-year-old male who was admitted by surgery for colon resection due to recently diagnosed cecal mass. He reports that his pain is there but controlled with current pain regimen. It is worse when he tries to move or takes a deep breath. He has been started on clears and is tolerating that without any nausea. He states he has already worked with physical therapy and is hopeful to keep working so that he can get home to be with his . Source: patient Date Seen 12/10/22 Attending Physician Jay Stafford DO PCP Admitting Physician: Vinny Angel DO Attending Physician: Vinny Angel DO Referring Physician Date of Admission Dec 10, 2022 at 05:50 Home Medications & Allergies Home Medications Reviewed patient Home Medication Reconciliation performed by pharmacy medication reconciliations paint technician and/or nursing. Patients Allergies have been reviewed. Allergies Allergies Uncoded Allergies INFUSION FOR OSTEOPORSIS ( Allergy, Unknown, 11/05/22) Past Mwrxoyy-Ecyhur-Ongmgh Hx Immunizations Up To Date Date of Influenza Vaccine: Feb 17, 2022 First/Initial COVID19 Vaccinat: 06/07 Second COVID19 Vaccination Bebo: 07/08 Tetanus Booster (TDap): Unknown Hepatitis A: No Hepatitis B: No Date of Pneumonia Vaccine: Jan 16, 2011 Seasonal Allergies Seasonal Allergies: Yes Current Status Primary Language: Ivorian Past Medical History Surgeries: Abdominal, Eye Surgery, Gallbladder, Neurological Currently Using CPAP: No Currently Using BIPAP: No Seizure Disorder Prostate Problems Chronic Constipation, Gall Bladder Disease Arthritis Cataract Loss of Vision: Bilateral Hearing Impairment: Hard of Hearing Psoriasis Blood Disorders: No Adverse Reaction/Blood Tranf: No Family Medical History No Pertinent Family Hx Review of Systems Constitutional: see HPI Physical Exam Physical Exam Vital Signs Vital Signs - First Documented 12/10/22 05:55 Temp 36.4 Pulse 85 Resp 20 B/P (MAP) 146/80 (102) Pulse Ox 99 O2 Delivery Room Air Capillary Refill : Less Than 3 Seconds Height, Weight, BMI Height: 5'7" Weight: 170lbs. 0oz. [id number]; 22.53 BMI Method:Estimated General Appearance: No Apparent Distress, Chronically ill, Thin Respiratory: Lungs Clear, No Respiratory Distress Cardiovascular: Regular Rate, Rhythm, No Murmur Gastrointestinal: Abnormal Bowel Sounds (quiet); No Guarding; Tenderness (appropriate), Other (midline incision with surgical dressing in place) Neurologic/Psychiatric: Alert, Oriented x3 Results Results/Procedures Labs Laboratory Tests 12/11/22 05:45 Patient resulted labs reviewed. Assessment/Plan Assessment and Plan Assess & Plan/Chief Complaint s/p colon resection cecal mass microcytic anemia Management per primary PT/OT Clears Pain regimen Seizure disorder BPH Continue home meds as able Will round prn. Please call with any needs. CASSIDY HONG MD Dec 10, 2022 15:59
--- NOTE | 2022-12-10 16:05 | Physical Therapy Evaluation ---
PT Evaluation-General Medical Diagnosis Admission Date Dec 10, 2022 at 05:50 Medical Diagnosis: Right Cecal mass Onset Date: Dec 10, 2022 Therapy Diagnosis Therapy Diagnosis: Gait deficit, strength deficit Height/Weight Height (Feet): 5 Height (Inches): 7 Weight (Pounds): 170 Weight (Ounces): 0 Precautions Precautions/Isolations: Standard Precautions Weight Bear Status Right Lower Extremity: Right Full Weight Bearing Left Lower Extremity: Left Full Weight Bearing Referral Physician: Dr. Angel Reason for Referral: Evaluation/Treatment Medical History Reviewed History: Yes Social History Home: Longterm Current Living Status: Spouse Entry Into Home: Level Entry Prior Prior Level of Function SCALE: Activities may be completed with or without assistive devices. 3-Recvbdgtdd-bfdwxro completes the activity by him/herself with no assistance from a helper. 5-Set-up or Clean-up Assistance-helper sets up or cleans up; patient completes activity. [place] assists only prior to or following the activity. 4-Supervision or Touching Assistance-helper provides verbal cues and/or touching/steadying and/or contact guard assistance as patient completes activity. Assistance may be provided throughout the activity or intermittently. 3-Partial/Moderate Assistance-helper does LESS THAN HALF the effort. [place] lifts, holds or supports trunk or limbs, but provides less than half the effort. 2-Substantial/Maximal Assistance-helper does MORE THAN HALF the effort. [place] lifts or holds trunk or limbs and provides more than half the effort. 9-Ydbxyhxfs-snryya does ALL the effort. Patient does none of the effort to complete the activity. Or, the assistance of 2 or more helpers is required for the patient to complete the activity. If activity was not attempted, code reason: 7-Patient Refused. 9-Not Applicable-not attempted and the patient did not perform the activity before the current illness, exacerbation or injury. 10-Not Attempted due to Environmental Limitations-(lack of equipment, weather restraints, etc.). 88-Not Attempted due to Medical Conditions or Safety Concerns. Bed Mobility: 6 Transfers (B,C,W/C): 6 Gait: 6 Indoor Mobility (Ambulation): Independent Stairs: Not Applicalbe Prior Devices Use: Walker PT Evaluation-Current Subjective Patient lying supine in bed upon PT arrival, agreeable to treatment. Patient rates pain at 9/10 in his abdomen. Objective Patient Orientation: Person, Place, Time, Situation Attachments: IV ROM/Strength ROM Lower Extremities WFLS BLEs all planes Strength Lower Extremities 3+/5 BLEs all planes Sensory Vision: Functional Hearing: Functional Sensation Right Lower Extremit: Intact Sensation Left Lower Extremity: Intact Transfers Roll Left to Right (QC): 3 Sit to Lying (QC): 3 Lying to Sitting/Side of Bed(Q: 3 Sit to Stand (QC): 3 Chair/Tzp-me-Xranv Xfer(QC): 3 Gait Does the Patient Walk?: No and Walking Goal IS indicated Mode of Locomotion: Walk Anticipated Mode of Locomotion: Walk Balance Sitting Static: Fair Sitting Dynamic: Fair Standing Static: Fair Standing Dynamic: Fair Assessment/Needs Patient tolerated treatment fair given recent surgery. Required mod A for all bed mobility and transfers. Patient ambulates 5 feet with FWW, with min a. Patient in chair post treatment with all needs met, nursing notified, call light in hand. Rehab Potential: Fair PT Half-Way Goals Half-Way Goals PT Half-Way Goals Time Frame: Jan 10, 2023 Roll Left & Right (QC): 6 Sit to Lying (QC): 6 Lying-Sitting on Side/Bed(QC): 6 Sit to Stand (QC): 6 Chair/Osd-dv-Xkwxz Xfer(QC): 6 Toilet Transfer (QC): 6 Does the Patient Walk: Yes Walk 10 feet (QC): 6 Walk 50ft with 2 Turns (QC): 6 Walk 150 ft (QC): 6 1 Step (curb) (QC): 4 4 Steps (QC): 3 PT Plan Problem List Problem List: Activity Tolerance, Functional Strength, Safety, Balance, Gait, Transfer, Bed Mobility, ROM Treatment/Plan Treatment Plan: Continue Plan of Care Treatment Plan: Bed Mobility, Education, Functional Activity Dutch, Functional Strength, Group Therapy, Gait, Safety, Therapeutic Exercise, Transfers Treatment Duration: Jan 15, 2023 Frequency: 6 times per week Patient and/or Family Agrees t: Yes Safety Risks/Education Patient Education: Gait Training, Transfer Techniques Teaching Recipient: Patient Teaching Methods: Demonstration, Discussion Response to Teaching: Verbalize Understanding, Return Demonstration Time Time In: 1330 Time Out: 1345 DATE: Dec 10, 2022 Total Billed Treatment Time: 15 Total Billed Treatment Visit, HERO MCKENZIE PT Dec 10, 2022 16:05
[2022-12-10] MEDS: TAMSULOSIN 0.4 MG (FLOMAX) CAP PO SCH (18:13)
[2022-12-10] MEDS: LevETIRAcetam 500 MG TABLET PO SCH (20:48)
[2022-12-10] MEDS: LevETIRAcetam 1,000 MG TABLET PO SCH (20:48)
[2022-12-10] MEDS: carBAMazepine 200 MG TABLET PO SCH (20:49)
[2022-12-11] MEDS: LACTATED RINGERS 1,000 ML IV SCH ×4 (00:15→23:51)
[2022-12-11] MEDS: HYDROcodone/ACETAMINOPHEN 5 MG/325 MG TABLET PO PRN ×4 (00:15→16:03)
[2022-12-11] MEDS ORDERED: ceFAZolin INJECTION 2,000 MG in NS (IVPB) 50 ML 50 ML IV SCH (02:00)
[2022-12-11] MEDS: morphine INJ 4 MG/ML 1 ML (VIAL/SYRINGE) IVP PRN (02:01)
[2022-12-11 04:00] VITALS: BP 105/66
[2022-12-11 06:08] LABS: HEMATOCRIT 29 % (40-54); HEMOGLOBIN 8.6 g/dL (13.3-17.7); MEAN CORPUSCULAR HEMOGLOBIN 23 pg (25-34); MEAN CORPUSCULAR HGB CONC 30 g/dL (32-36); MEAN CORPUSCULAR VOLUME 79 fL (80-99); MEAN PLATELET VOLUME 8.7 fL (9.0-12.2); PLATELET COUNT 299 10^3/uL (130-400); WHITE BLOOD COUNT 2.2 10^3/uL (4.3-11.0)
[2022-12-11 06:21] LABS: POTASSIUM 4.1 MMOL/L (3.6-5.0)
[2022-12-11 06:26] LABS: CREATININE SERUM 0.68 MG/DL (0.60-1.30)
[2022-12-11] MEDS: carBAMazepine 200 MG TABLET PO SCH ×2 (07:58→20:37)
[2022-12-11] MEDS: LevETIRAcetam 1,000 MG TABLET PO SCH ×2 (07:58→20:36)
[2022-12-11] MEDS: LevETIRAcetam 500 MG TABLET PO SCH ×2 (07:58→20:37)
[2022-12-11 08:00] VITALS: BP 120/74
--- NOTE | 2022-12-11 11:16 | Physical Therapy Daily Note ---
PT Daily Note-Current Subjective Patient agrees to PT. Pain Numeric Pain Scale: 5-Moderate Pain Location: Medial, Lower Location Body Site: Abdomen Pain Description: Acute Section J - Health Conditions 1. Rarely or not at all 2. Occasionally 3. Frequently 4. Almost constantly 8. Unable to answer Pain Effect on Sleep: 2 Pain Interference with Therapy: 2 Pain Interference w/Day-to-Day: 2 Mental Status Patient Orientation: Normal For Age Attachments: Rangel Catheter, IV Transfers SCALE: Activities may be completed with or without assistive devices. 5-Mmlcvcqeuw-yubanjd completes the activity by him/herself with no assistance from a helper. 5-Set-up or Clean-up Assistance-helper sets up or cleans up; patient completes activity. [place] assists only prior to or following the activity. 4-Supervision or Touching Assistance-helper provides verbal cues and/or touching/steadying and/or contact guard assistance as patient completes activity. Assistance may be provided throughout the activity or intermittently. 3-Partial/Moderate Assistance-helper does LESS THAN HALF the effort. [place] lifts, holds or supports trunk or limbs, but provides less than half the effort. 2-Substantial/Maximal Assistance-helper does MORE THAN HALF the effort. [place] lifts or holds trunk or limbs and provides more than half the effort. 3-Xeixhtzvz-snswvf does ALL the effort. Patient does none of the effort to complete the activity. Or, the assistance of 2 or more helpers is required for the patient to complete the activity. If activity was not attempted, code reason: 7-Patient Refused. 9-Not Applicable-not attempted and the patient did not perform the activity before the current illness, exacerbation or injury. 10-Not Attempted due to Environmental Limitations-(lack of equipment, weather restraints, etc.). 88-Not Attempted due to Medical Conditions or Safety Concerns. Lying to Sitting/Side of Bed(Q: 4 Sit to Stand (QC): 4 Chair/Zso-em-Dwfpy Xfer(QC): 4 Weight Bearing Right Lower Extremity: Right Full Weight Bearing Left Lower Extremity: Left Full Weight Bearing Gait Training Distance: 300' Walk 10 feet (QC): 4 Walk 50 ft with 2 Turns(QC): 4 Walk 150 ft (QC): 4 Gait Assistive Device: FWW steady, functional gait sequence Assessment Patient up in recliner with needs met. PT to continue to increase activity as tolerated by patient. PT Car Shakeout Operator Goals Senior Living Goals PT Car Shakeout Operator Goals Time Frame: Jan 10, 2023 Roll Left & Right (QC): 6 Sit to Lying (QC): 6 Lying-Sitting on Side/Bed(QC): 6 Sit to Stand (QC): 6 Chair/Shh-cv-Cjptp Xfer(QC): 6 Toilet Transfer (QC): 6 Does the Patient Walk: Yes Walk 10 feet (QC): 6 Walk 50ft with 2 Turns (QC): 6 Walk 150 ft (QC): 6 1 Step (curb) (QC): 4 4 Steps (QC): 3 PT Plan Treatment/Plan Treatment Plan: Continue Plan of Care Treatment Plan: Bed Mobility, Education, Functional Activity Dutch, Functional Strength, Group Therapy, Gait, Safety, Therapeutic Exercise, Transfers Treatment Duration: Jan 15, 2023 Frequency: 6 times per week Patient and/or Family Agrees t: Yes Time Time In: 1030 Time Out: 1042 DATE: Dec 11, 2022 Total Billed Treatment Time: 12 Total Billed Treatment 1 visit FA 12 min MILAGROS LAGUNA PT Dec 11, 2022 11:16
[2022-12-11 12:10] VITALS: BP 104/66
--- NOTE | 2022-12-11 13:34 | Progress Note - Surgery ---
Subjective Date Seen by a Provider: Dec 11, 2022 Time Seen by a Provider: 12:29 Subjective/Events-last exam Ambulated already today. Sitting in chair. No flatus. Tolerating clears. Pain controlled. Denies n/v fever sweats chills shortness of breath or chest pain. Objective Exam Vital Signs Date Time Temp Pulse Resp B/P (MAP) Pulse Ox O2 Delivery O2 Flow Rate FiO2 12/11/22 12:10 36.3 100 20 104/66 (79) 98 Room Air 12/11/22 08:00 36.4 99 24 120/74 (89) 98 Room Air 12/11/22 08:00 Room Air 12/11/22 04:00 36.5 109 16 105/66 (79) 96 Room Air 12/10/22 23:22 36.6 106 16 107/61 (76) 97 Room Air 12/10/22 20:57 36.9 115 18 143/73 (96) 99 Room Air 12/10/22 20:00 Room Air 12/10/22 18:00 36.6 117 18 130/74 (92) 94 Room Air 12/10/22 16:57 38.1 118 18 128/65 (86) 97 Room Air I & O 12/11/22 07:00 Intake Total 1370 ml Output Total 795 ml Balance 575 ml Capillary Refill : Less Than 3 Seconds General Appearance: No Apparent Distress, Chronically ill, Thin Neck: Normal Inspection, Non Tender Respiratory: Chest Non Tender, No Accessory Muscle Use, No Respiratory Distress Cardiovascular: Regular Rate, Rhythm, No JVD, Tachycardia Gastrointestinal: tenderness (incisional, c/d/i no signs of infection) Extremity: Normal Inspection, Non Tender Neurologic/Psychiatric: Alert, Oriented x3 Skin: Normal Color, Warm/Dry Lymphatic: No Adenopathy Results Lab Laboratory Tests 12/11/22 05:45: White Blood Count 2.2L, Red Blood Count 3.67L, Hemoglobin 8.6L, Hematocrit 29L, Mean Corpuscular Volume 79L, Mean Corpuscular Hemoglobin 23L, Mean Corpuscular Hemoglobin Concent 30L, Red Cell Distribution Width 22.9H, Platelet Count 299, Mean Platelet Volume 8.7L, Sodium Level 135, Potassium Level 4.1, Chloride Level 104, Carbon Dioxide Level 22, Anion Gap 9, Blood Urea Nitrogen 12, Creatinine 0.68, Estimat Glomerular Filtration Rate 95, BUN/Creatinine Ratio 18, Glucose Level 128H, Calcium Level 8.0L Microbiology 12/10/22 MRSA Screen - Final, Complete MRSA not isolated Assessment/Plan Assessment/Plan Assessment/Plan s/p right colon resection iv fluids clear liquids advance when has bowel function pain control dc flores incentive spirometery. Lovenox scd's for dvt prophylaxis CITLALY DELUNA DO Dec 11, 2022 13:34
--- NOTE | 2022-12-11 13:34 | Anesthesia-General Post-Op ---
General Patient Condition Mental Status/LOC: Same as Preop Cardiovascular: Satisfactory Nausea/Vomiting: Absent Respiratory: Satisfactory Pain: Controlled Complications: Absent Post Op Complications Complications None Follow Up Care/Instructions Patient Instructions None needed. Anesthesia/Patient Condition Patient Condition Patient is resting confortably sitting up in chair and doing well currently. No complaints, stable vital signs, no apparent adverse anesthesia problems. No complications reported per nursing. ROSE BROWN DO Dec 11, 2022 13:33
[2022-12-11] MEDS: ENOXAPARIN 40 MG/0.4 ML SYRINGE SC SCH (14:05)
[2022-12-11 16:27] VITALS: BP 112/73
[2022-12-11] MEDS: TAMSULOSIN 0.4 MG (FLOMAX) CAP PO SCH (17:59)
--- NOTE | 2022-12-11 18:08 | OPERATIVE REPORT ---
DATE OF SERVICE: 12/11/2022 PREOPERATIVE DIAGNOSIS: Right cecal mass. POSTOPERATIVE DIAGNOSIS: Right cecal mass. PROCEDURE: Open right colon resection en bloc with retroperitoneal dissection. ANESTHESIA: General. ESTIMATED BLOOD LOSS: Minimal. COMPLICATIONS: None. INDICATIONS: The patient is a 77-year-old male with a right cecal mass. He was explained the risks and benefits of procedure and wished to proceed. He was also having anemia caused by this area. He understands risks and benefits of procedure and wished to proceed. Consent was signed in chart. DESCRIPTION OF PROCEDURE: The patient was taken to the operating suite where he was prepped and draped in sterile fashion. Timeout was performed. Midline incision was made, encountered very firm hard mass in the right gutter. This went into the retroperitoneum on palpation. The transverse colon was adherent to the cecum where the tumor had extended out of the colon. Therefore, distal to this area of the transverse colon, the transverse colon was dissected around with both blunt and cautery dissection. A REBEKA stapler was fired across the transverse colon. LigaSure was then used to start dividing the mesentery and also continue to mobilize the right colon where we could visualize it. We mobilized the hepatic flexure as well, trying to make the colon a midline structure. We continued to dissect around the right gutter along the white line of [place] until where there appeared to be extension of the colonic mass into the retroperitoneum. I had to use finger and cautery dissection, and was able to mobilize the mass more medially. Continue to dissect the retroperitoneum out and was able to visualize the right ureter as well. Went to the distal ileum, dissected around bluntly and with cautery. Used a REBEKA stapler, fired across this. We then used the LigaSure to begin dividing the mesentery. Once this was removed, the small bowel to the transverse colon an anastomosis was created in a yamo-ct-ecmj fashion using REBEKA stapler. Put a crotch stitch in and also then closed the mesenteric defect. The abdomen was then irrigated with copious amounts of irrigation. The anastomosis was patent and appeared viable. In the right gutter near the ureter, there were still some areas that are concerning for extension of the mass; however, due to the location, did not feel safe to further try to excise this area due to the surrounding structures. At this point, wound was irrigated with copious amounts of irrigation. Hemostasis was achieved. The fascia was then closed using 1-0 looped PDS. Skin was then closed using jesus. Of note, the liver did have a large cyst on it. No other pathology noted. The fascia was then closed with 1-0 looped PDS. The skin was then closed with jesus. The area was washed and dried and sterile bandages were applied. The patient tolerated the procedure well without complications, taken to recovery room in stable condition. SENIOR COMMISSARY AGENT: Dr. Garrison, assisted in retraction, dissection, and closure. Job ID: [id number] DocumentID: [id number] Dictated Date: 12/11/2022 16:04:33 Trash Collector Truck Driver Date: 12/11/2022 18:06:00 Dictated By: DO KAIDEN PARKINSON
[2022-12-11 19:19] VITALS: BP 98/65
[2022-12-11] MEDS: FAMOTIDINE INJ 20MG/2ML VIAL IVP SCH (20:36)
[2022-12-11 23:40] VITALS: BP 113/56
[2022-12-12] VITALS (7 sets, daily range): BP systolic 121–146; BP diastolic 60–98
[2022-12-12] MEDS: HYDROcodone/ACETAMINOPHEN 5 MG/325 MG TABLET PO PRN ×2 (05:44→20:01)
[2022-12-12 05:48] LABS: HEMATOCRIT 28 % (40-54); HEMOGLOBIN 8.7 g/dL (13.3-17.7); MEAN CORPUSCULAR HEMOGLOBIN 24 pg (25-34); MEAN CORPUSCULAR HGB CONC 31 g/dL (32-36); MEAN CORPUSCULAR VOLUME 78 fL (80-99); MEAN PLATELET VOLUME 8.7 fL (9.0-12.2); PLATELET COUNT 291 10^3/uL (130-400); WHITE BLOOD COUNT 3.1 10^3/uL (4.3-11.0)
[2022-12-12 05:58] LABS: POTASSIUM 3.8 MMOL/L (3.6-5.0)
[2022-12-12 06:00] LABS: CALCIUM 8.3 MG/DL (8.5-10.1)
[2022-12-12 06:04] LABS: CREATININE SERUM 0.66 MG/DL (0.60-1.30)
[2022-12-12 06:06] LABS: MAGNESIUM 1.7 MG/DL (1.6-2.4)
--- NOTE | 2022-12-12 08:14 | Physical Therapy Daily Note ---
PT Daily Note-Current Subjective Patient agrees to PT. Pain Numeric Pain Scale: 8 Location: Medial, Lower Location Body Site: Abdomen Pain Description: Pressure Section J - Health Conditions 1. Rarely or not at all 2. Occasionally 3. Frequently 4. Almost constantly 8. Unable to answer Pain Effect on Sleep: 2 Pain Interference with Therapy: 2 Pain Interference w/Day-to-Day: 2 Mental Status Attachments: IV Transfers SCALE: Activities may be completed with or without assistive devices. 4-Qsikdjvlai-qnhkvic completes the activity by him/herself with no assistance from a helper. 5-Set-up or Clean-up Assistance-helper sets up or cleans up; patient completes activity. [place] assists only prior to or following the activity. 4-Supervision or Touching Assistance-helper provides verbal cues and/or touching/steadying and/or contact guard assistance as patient completes activity. Assistance may be provided throughout the activity or intermittently. 3-Partial/Moderate Assistance-helper does LESS THAN HALF the effort. [place] lifts, holds or supports trunk or limbs, but provides less than half the effort. 2-Substantial/Maximal Assistance-helper does MORE THAN HALF the effort. [place] lifts or holds trunk or limbs and provides more than half the effort. 3-Svumrxkqj-wqeped does ALL the effort. Patient does none of the effort to complete the activity. Or, the assistance of 2 or more helpers is required for the patient to complete the activity. If activity was not attempted, code reason: 7-Patient Refused. 9-Not Applicable-not attempted and the patient did not perform the activity before the current illness, exacerbation or injury. 10-Not Attempted due to Environmental Limitations-(lack of equipment, weather restraints, etc.). 88-Not Attempted due to Medical Conditions or Safety Concerns. Lying to Sitting/Side of Bed(Q: 4 Sit to Stand (QC): 4 Chair/Yei-id-Xsbhw Xfer(QC): 4 Weight Bearing Right Lower Extremity: Right Full Weight Bearing Left Lower Extremity: Left Full Weight Bearing Gait Training Distance: 300' Walk 10 feet (QC): 4 Walk 50 ft with 2 Turns(QC): 4 Walk 150 ft (QC): 4 Gait Assistive Device: FWW steady pattern/slow Assessment Patient up in recliner with needs met. Patient continues to have abdominal pain/discomfort. RN aware. PT Alf Goals Alf Goals PT Rn Sexual Assault Goals Time Frame: Jan 10, 2023 Roll Left & Right (QC): 6 Sit to Lying (QC): 6 Lying-Sitting on Side/Bed(QC): 6 Sit to Stand (QC): 6 Chair/Ohm-co-Nddjk Xfer(QC): 6 Toilet Transfer (QC): 6 Does the Patient Walk: Yes Walk 10 feet (QC): 6 Walk 50ft with 2 Turns (QC): 6 Walk 150 ft (QC): 6 1 Step (curb) (QC): 4 4 Steps (QC): 3 PT Plan Treatment/Plan Treatment Plan: Continue Plan of Care Treatment Plan: Bed Mobility, Education, Functional Activity Dutch, Functional Strength, Group Therapy, Gait, Safety, Therapeutic Exercise, Transfers Treatment Duration: Jan 15, 2023 Frequency: 6 times per week Patient and/or Family Agrees t: Yes Time Time In: 735 Time Out: 748 DATE: Dec 12, 2022 Total Billed Treatment Time: 13 Total Billed Treatment 1 visit FA 13 min MILAGROS LAGUNA PT Dec 12, 2022 08:14
[2022-12-12] MEDS: LevETIRAcetam 1,000 MG TABLET PO SCH ×2 (08:41→20:00)
[2022-12-12] MEDS: carBAMazepine 200 MG TABLET PO SCH ×2 (08:41→20:01)
[2022-12-12] MEDS: LevETIRAcetam 500 MG TABLET PO SCH ×2 (08:41→20:00)
[2022-12-12] MEDS: FAMOTIDINE INJ 20MG/2ML VIAL IVP SCH ×2 (08:41→20:00)
[2022-12-12] MEDS: LACTATED RINGERS 1,000 ML IV SCH ×2 (08:42→18:36)
--- NOTE | 2022-12-12 09:52 | Progress Note - Surgery ---
Subjective Date Seen by a Provider: Dec 12, 2022 Time Seen by a Provider: 09:52 Subjective/Events-last exam Pain controlled. More abdominal distention than yesterday. Ambulating and sitting in chair. No bowel function yet. Denies fever sweats chills shortness of breath or chest pain. Objective Exam Vital Signs Date Time Temp Pulse Resp B/P (MAP) Pulse Ox O2 Delivery O2 Flow Rate FiO2 12/12/22 08:00 36.5 111 28 139/84 (102) 97 Room Air 12/12/22 08:00 Room Air 12/12/22 03:25 36.9 108 16 121/60 (80) 99 Room Air 12/11/22 23:40 36.6 98 16 113/56 (75) 97 Room Air 12/11/22 20:00 Room Air 12/11/22 19:19 36.7 95 16 98/65 (76) 96 Room Air 12/11/22 16:27 36.8 99 16 112/73 (86) 97 Room Air 12/11/22 12:10 36.3 100 20 104/66 (79) 98 Room Air I & O 12/12/22 07:00 Intake Total 710 ml Output Total 335 ml Balance 375 ml Capillary Refill : Less Than 3 Seconds General Appearance: No Apparent Distress, Chronically ill, Thin Neck: Normal Inspection, Non Tender Respiratory: Lungs Clear, No Respiratory Distress Cardiovascular: Regular Rate, Rhythm, No Murmur, Tachycardia Gastrointestinal: distended, tenderness (incisional, c/d/i no signs of infection) Extremity: Normal Inspection, Non Tender Neurologic/Psychiatric: Alert, Oriented x3 Skin: Normal Color, Warm/Dry Lymphatic: No Adenopathy Results Lab Laboratory Tests 12/12/22 05:14: White Blood Count 3.1L, Red Blood Count 3.63L, Hemoglobin 8.7L, Hematocrit 28L, Mean Corpuscular Volume 78L, Mean Corpuscular Hemoglobin 24L, Mean Corpuscular Hemoglobin Concent 31L, Red Cell Distribution Width 22.4H, Platelet Count 291, Mean Platelet Volume 8.7L, Sodium Level 134L, Potassium Level 3.8, Chloride Level 101, Carbon Dioxide Level 24, Anion Gap 9, Blood Urea Nitrogen 10, Creatinine 0.66, Estimat Glomerular Filtration Rate 95, BUN/Creatinine Ratio 15, Glucose Level 123H, Calcium Level 8.3L, Magnesium Level 1.7 Microbiology 12/10/22 MRSA Screen - Final, Complete MRSA not isolated Assessment/Plan Assessment/Plan Assessment/Plan s/p right colon resection iv fluids clear liquids advance when has bowel function-awaiting bowel function pain control incentive spirometery. Lovenox scd's for dvt prophylaxis CITLALY DELUNA DO Dec 12, 2022 09:52
[2022-12-12] MEDS: ENOXAPARIN 40 MG/0.4 ML SYRINGE SC SCH (14:32)
[2022-12-12] MEDS: TAMSULOSIN 0.4 MG (FLOMAX) CAP PO SCH (18:35)
[2022-12-13] VITALS (9 sets, daily range): BP systolic 99–149; BP diastolic 61–91
[2022-12-13] MEDS: LACTATED RINGERS 1,000 ML IV SCH ×3 (03:49→17:03)
--- NOTE | 2022-12-13 06:37 | Progress Note - Hospitalist ---
Subjective HPI/CC On Admission Date Seen by Provider: Dec 13, 2022 Patient is a 77-year-old male who was admitted by surgery for colon resection due to recently diagnosed cecal mass. He reports that his pain is there but controlled with current pain regimen. It is worse when he tries to move or takes a deep breath. He has been started on clears and is tolerating that without any nausea. He states he has already worked with physical therapy and is hopeful to keep working so that he can get home to be with his . Subjective/Events-last exam Pt reports doing well. No complaints. Abd pain persistent but improving. Had some hard stools overnight. RN reports persistant tachycardia and softer BP. Objective Exam Vital Signs Vital Signs Date Time Temp Pulse Resp B/P (MAP) Pulse Ox O2 Delivery O2 Flow Rate FiO2 12/13/22 04:00 125 18 99/66 (77) 91 Room Air 12/13/22 03:19 37.0 12/10/22 10:50 3.00 Capillary Refill : Less Than 3 Seconds General Appearance: No Apparent Distress, Chronically ill, Thin Respiratory: Lungs Clear, No Respiratory Distress Cardiovascular: No Murmur, Tachycardia Gastrointestinal: Soft, Abnormal Bowel Sounds (quiet), Distended; No Guarding, No Tenderness Neurologic/Psychiatric: Alert, Oriented x3 (but did ask about if his was in the room and seemed confused for a moment that she wasn't) Results/Procedures Lab Patient resulted labs reviewed. Assessment/Plan Assessment and Plan Assess & Plan/Chief Complaint s/p colon resection cecal mass microcytic anemia Management per primary PT/OT NPO Pain regimen Tachycardia Appears dry clinically UOP lower overnight Bolus LR and monitor response Seizure disorder BPH Continue home meds CASSIDY HONG MD Dec 13, 2022 06:37
[2022-12-13 07:26] LABS: BASOPHILS % (AUTO) 0 % (0-10); EOSINOPHILS % (AUTO) 0 % (0-10); HEMATOCRIT 30 % (40-54); HEMOGLOBIN 9.4 g/dL (13.3-17.7); LYMPHOCYTES # (AUTO) 0.3 10^3/uL (1.0-4.0); LYMPHOCYTES % (AUTO) 5 % (12-44); MEAN CORPUSCULAR HEMOGLOBIN 24 pg (25-34); MEAN CORPUSCULAR HGB CONC 31 g/dL (32-36); MEAN CORPUSCULAR VOLUME 78 fL (80-99); MEAN PLATELET VOLUME 8.5 fL (9.0-12.2); MONOCYTES # (AUTO) 0.4 10^3/uL (0.0-1.0); MONOCYTES % (AUTO) 7 % (0-12); NEUTROPHILS # (AUTO) 5.2 10^3/uL (1.8-7.8); NEUTROPHILS % (AUTO) 87 % (42-75); PLATELET COUNT 334 10^3/uL (130-400); WHITE BLOOD COUNT 5.9 10^3/uL (4.3-11.0)
[2022-12-13 07:33] LABS: ALBUMIN 2.7 GM/DL (3.2-4.5)
[2022-12-13 07:34] LABS: POTASSIUM 3.9 MMOL/L (3.6-5.0)
[2022-12-13 07:35] LABS: CALCIUM 8.3 MG/DL (8.5-10.1)
[2022-12-13 07:36] LABS: TOTAL PROTEIN 4.9 GM/DL (6.4-8.2)
[2022-12-13 07:38] LABS: BILIRUBIN,TOTAL 0.3 MG/DL (0.1-1.0)
[2022-12-13 07:40] LABS: CREATININE SERUM 0.78 MG/DL (0.60-1.30)
[2022-12-13 08:20] LABS: ANISOCYTOSIS MODERATE; BAND NEUTROPHILS 6 %; BASOPHILS % (MANUAL) 0 %; ELLIPT/OVALOCYTES SLIGHT; EOSINOPHILS % (MANUAL) 0 %; HYPOCHROMASIA SLIGHT; LYMPHOCYTES % (MANUAL) 4 %; MONOCYTES % (MANUAL) 4 %; NEUTROPHILS % (MANUAL) 86 %
[2022-12-13] MEDS: LevETIRAcetam 1,000 MG TABLET PO SCH ×2 (08:23→20:02)
[2022-12-13] MEDS: FAMOTIDINE INJ 20MG/2ML VIAL IVP SCH ×2 (08:24→20:02)
[2022-12-13] MEDS: carBAMazepine 200 MG TABLET PO SCH ×2 (08:24→20:02)
[2022-12-13] MEDS: LevETIRAcetam 500 MG TABLET PO SCH ×2 (08:24→20:02)
--- NOTE | 2022-12-13 09:14 | Progress Note - Surgery ---
Subjective Date Seen by a Provider: Dec 13, 2022 Time Seen by a Provider: 09:14 Subjective/Events-last exam Denies bowel function. Abdomen more distended. Having nausea. Slight confusion. Ambulating in halls. Denies fever sweats chills shortness of breath or chest pain. Objective Exam Vital Signs Date Time Temp Pulse Resp B/P (MAP) Pulse Ox O2 Delivery O2 Flow Rate FiO2 12/13/22 08:51 37.0 120 19 115/79 (91) 97 Room Air 12/13/22 08:00 Room Air 12/13/22 06:49 112 16 133/61 (85) 95 Room Air 12/13/22 04:00 125 18 99/66 (77) 91 Room Air 12/13/22 03:19 37.0 129 18 103/71 (82) 91 Room Air 12/13/22 00:13 36.8 108 18 131/91 (104) 93 Room Air 12/12/22 20:32 36.5 128 18 138/98 (111) 98 Room Air 12/12/22 20:00 Room Air 12/12/22 19:10 37.1 114 17 123/77 (92) 97 Room Air 12/12/22 16:00 36.5 108 17 146/83 (104) 97 Room Air 12/12/22 12:00 36.7 100 21 139/84 (102) 97 Room Air I & O 12/13/22 07:00 Intake Total 290 ml Output Total 475 ml Balance -185 ml Capillary Refill : Less Than 3 Seconds General Appearance: No Apparent Distress, Chronically ill, Thin Neck: Normal Inspection, Non Tender Respiratory: Lungs Clear, No Respiratory Distress Cardiovascular: No Murmur, Tachycardia Gastrointestinal: distended (increased), tenderness (incisional, c/d/i no signs of infection) Extremity: Normal Inspection, Non Tender Neurologic/Psychiatric: Alert, Normal Mood/Affect Skin: Normal Color, Warm/Dry Lymphatic: No Adenopathy Results Lab Laboratory Tests 12/13/22 07:19: White Blood Count 5.9, Red Blood Count 3.89L, Hemoglobin 9.4L, Hematocrit 30L, Mean Corpuscular Volume 78L, Mean Corpuscular Hemoglobin 24L, Mean Corpuscular Hemoglobin Concent 31L, Red Cell Distribution Width 22.8H, Platelet Count 334, Mean Platelet Volume 8.5L, Immature Granulocyte % (Auto) 0, Neutrophils (%) (Auto) 87H, Lymphocytes (%) (Auto) 5L, Monocytes (%) (Auto) 7, Eosinophils (%) (Auto) 0, Basophils (%) (Auto) 0, Neutrophils # (Auto) 5.2, Lymphocytes # (Auto) 0.3L, Monocytes # (Auto) 0.4, Eosinophils # (Auto) 0.0, Basophils # (Auto) 0.0, Immature Granulocyte # (Auto) 0.0, Neutrophils % (Manual) 86, Lymphocytes % (Manual) 4, Monocytes % (Manual) 4, Eosinophils % (Manual) 0, Basophils % (Manual) 0, Band Neutrophils 6, Hypochromasia SLIGHT, Anisocytosis MODERATE, E lliptocytes SLIGHT, Sodium Level 135, Potassium Level 3.9, Chloride Level 101, Carbon Dioxide Level 22, Anion Gap 12, Blood Urea Nitrogen 13, Creatinine 0.78, Estimat Glomerular Filtration Rate 91, BUN/Creatinine Ratio 17, Glucose Level 131H, Calcium Level 8.3L, Corrected Calcium 9.3, Total Bilirubin 0.3, Aspartate Amino Transf (AST/SGOT) 14, Alanine Aminotransferase (ALT/SGPT) 15, Alkaline Phosphatase 76, Total Protein 4.9L, Albumin 2.7L Microbiology 12/10/22 MRSA Screen - Final, Complete MRSA not isolated Assessment/Plan Assessment/Plan Assessment/Plan s/p right colon resection postoperative ileus iv fluids clear liquids advance when has bowel function-awaiting bowel function pain control incentive spirometery. Lovenox scd's for dvt prophylaxis abdomen more distended and with nausea will put in NG to elijah and CITLALY PIERCE DO Dec 13, 2022 09:14
--- NOTE | 2022-12-13 09:52 | Diagnostic Imaging Report ---
EXAMINATION: Abdomen 1 view HISTORY: Tube placement COMPARISON: None available. FINDINGS: Enteric tube is present with the tip coursing below the diaphragm. Tip projects over the left upper quadrant in expected location of the proximal or mid stomach. Persistent dilated loops of small bowel measuring up to 6.2 cm. IMPRESSION: Enteric catheter tip projecting over the proximal or mid stomach in the left upper quadrant. Stable dilated loops of bowel measuring up to 6.2 cm. Dictated by: Dictated on workstation # [id number]
--- NOTE | 2022-12-13 09:58 | Physical Therapy Progress Note ---
Therapy Progress Note Pt. in bed and states "I'm terrible." Pt. reports recently placed NG tube. Pt. requests no PT today. We will check patient status 12/15/22. 0933 JF ALFRED PT Dec 13, 2022 09:58
[2022-12-13] MEDS: ENOXAPARIN 40 MG/0.4 ML SYRINGE SC SCH (14:20)
[2022-12-13] MEDS ORDERED: NS IV 500 ML 500 ML ONE (15:05)
[2022-12-13] MEDS ORDERED: NS IV 500 ML 500 ML IV ONE (15:15)
[2022-12-13] MEDS: TAMSULOSIN 0.4 MG (FLOMAX) CAP PO SCH (17:03)
[2022-12-14] VITALS (8 sets, daily range): BP systolic 105–155; BP diastolic 71–80
[2022-12-14] MEDS: LACTATED RINGERS 1,000 ML IV SCH ×4 (00:03→23:38)
[2022-12-14] MEDS: LevETIRAcetam 500 MG/ 5 ML UDC ORAL SOLN PO SCH ×2 (08:48→20:44)
[2022-12-14] MEDS: carBAMazepine 200 MG TABLET PO SCH ×2 (08:48→20:44)
[2022-12-14] MEDS: FAMOTIDINE INJ 20MG/2ML VIAL IVP SCH ×2 (08:49→20:44)
[2022-12-14] MEDS ORDERED: LevETIRAcetam 500 MG/ 5 ML UDC ORAL SOLN PO SCH ×2 (09:00)
--- NOTE | 2022-12-14 09:22 | Progress Note - Surgery ---
Subjective Date Seen by a Provider: Dec 14, 2022 Time Seen by a Provider: 09:17 Subjective/Events-last exam Urine output improving from yesterday. NG tube in place. No bowel function. Abdomen distended. Ambulating some. Alert and oriented. Denies n/v fever sweats chills shortness of breath or chest pain. Objective Exam Vital Signs Date Time Temp Pulse Resp B/P (MAP) Pulse Ox O2 Delivery O2 Flow Rate FiO2 12/14/22 08:09 37.5 107 20 155/74 (101) 99 Room Air 12/14/22 03:04 36.7 104 16 130/80 (97) 97 Room Air 12/13/22 23:47 36.8 109 16 130/79 (96) 97 Room Air 12/13/22 20:43 Room Air 12/13/22 19:15 36.9 105 17 149/85 (106) 98 Room Air 12/13/22 15:41 37.0 104 18 148/79 (102) 97 Room Air 12/13/22 11:50 37.2 111 19 132/80 (97) 97 Room Air I & O 12/14/22 07:00 Intake Total 2620 ml Output Total 2205 ml Balance 415 ml Capillary Refill : Less Than 3 Seconds General Appearance: No Apparent Distress, Chronically ill, Thin HEENT: PERRL/EOMI, Normal ENT Inspection Neck: Normal Inspection, Non Tender Respiratory: Chest Non Tender, No Accessory Muscle Use, No Respiratory Distress Cardiovascular: No JVD, Tachycardia Gastrointestinal: distended, tenderness (incisional, c/d/i no signs of infection) Extremity: Normal Inspection, Non Tender Neurologic/Psychiatric: Alert, Oriented x3, Normal Mood/Affect Skin: Normal Color, Warm/Dry Lymphatic: No Adenopathy Results Lab Microbiology 12/10/22 MRSA Screen - Final, Complete MRSA not isolated Assessment/Plan Assessment/Plan Assessment/Plan s/p right colon resection postoperative ileus iv fluids clear liquids advance diet when has bowel function-awaiting bowel function pain control incentive spirometery. Lovenox scd's for dvt prophylaxis ng tube CITLALY Melgoza DO Dec 14, 2022 09:22
--- NOTE | 2022-12-14 12:11 | Progress Note - Hospitalist ---
Subjective HPI/CC On Admission Date Seen by Provider: Dec 14, 2022 Patient is a 77-year-old male who was admitted by surgery for colon resection due to recently diagnosed cecal mass. He reports that his pain is there but controlled with current pain regimen. It is worse when he tries to move or takes a deep breath. He has been started on clears and is tolerating that without any nausea. He states he has already worked with physical therapy and is hopeful to keep working so that he can get home to be with his . Subjective/Events-last exam Pt up walking to chair. Only complaint is that he feels weak. No BM or flatus yet. HR improved. UOP improved. Objective Exam Vital Signs Vital Signs Date Time Temp Pulse Resp B/P (MAP) Pulse Ox O2 Delivery O2 Flow Rate FiO2 12/14/22 08:09 37.5 107 20 155/74 (101) 99 Room Air 12/10/22 10:50 3.00 Capillary Refill : Less Than 3 Seconds General Appearance: No Apparent Distress, Chronically ill, Thin HEENT: Other (NGT) Respiratory: Lungs Clear, No Respiratory Distress Cardiovascular: No Murmur, Tachycardia (improved from yesterday though) Gastrointestinal: Abnormal Bowel Sounds (quiet), Distended; No Guarding Neurologic/Psychiatric: Alert, Oriented x3 Results/Procedures Lab Patient resulted labs reviewed. Assessment/Plan Assessment and Plan Assess & Plan/Chief Complaint s/p colon resection cecal mass microcytic anemia Management per primary PT/OT NPO NGT placed Pain regimen Tachycardia- improving Likely intravascularly depleted- responded well to fluids UOP improved yesterday HR better, BP much better Seizure disorder BPH Continue home meds DVT ppx: CASSIDY Watts MD Dec 14, 2022 12:11
[2022-12-14] MEDS: ENOXAPARIN 40 MG/0.4 ML SYRINGE SC SCH (14:20)
[2022-12-14] MEDS ORDERED: NS IV 500 ML 500 ML IV ONE (17:00)
[2022-12-14] MEDS ORDERED: NS IV 500 ML 500 ML ONE (17:04)
[2022-12-14] MEDS ORDERED: ACETAMINOPHEN 325 MG TABLET ONE (17:09)
[2022-12-14] MEDS: ACETAMINOPHEN 325 MG TABLET PO PRN (17:10)
[2022-12-14] MEDS: TAMSULOSIN 0.4 MG (FLOMAX) CAP PO SCH (17:10)
--- NOTE | 2022-12-14 17:13 | Diagnostic Imaging Report ---
HISTORY: New onset fever COMPARISON: CT chest from 11/10/2022 TECHNIQUE: Frontal view the chest FINDINGS: There are airspace opacities in the lung bases bilaterally. An enteric tube crosses the [id number]. There is no pleural effusion or pneumothorax. The cardiac silhouette is normal in size. The patient is rotated to the right. IMPRESSION: 1. Bibasilar airspace opacities, may represent atelectasis or infiltrate. Dictated by: Dictated on workstation # [id number]
[2022-12-14] MEDS ORDERED: RT-ALBUTEROL SULF 2.5 MG/3 ML PRE-MIX VIAL INH PRN (17:30)
[2022-12-14 17:37] LABS: CLARITY,URINE SL CLOUDY; COLOR,URINE YELLOW; GLUCOSE, URINE (UA) NEGATIVE (NEGATIVE); KETONES,URINE 3+ (NEGATIVE); LEUKOCYTE ESTERASE ,URINE NEGATIVE (NEGATIVE); NITRITE,URINE NEGATIVE (NEGATIVE); PROTEIN,URINE 2+ (NEGATIVE)
[2022-12-14 17:54] LABS: BACTERIA,URINE FEW /HPF; BILIRUBIN,URINE 2+ (NEGATIVE); HYALINE CASTS, URINE 0-2 /LPF; RBC,URINE 0-2 /HPF
[2022-12-15 03:15] VITALS: BP 128/81
[2022-12-15 07:27] VITALS: BP 135/80
[2022-12-15] MEDS: FAMOTIDINE INJ 20MG/2ML VIAL IVP SCH ×2 (08:13→19:42)
[2022-12-15] MEDS: carBAMazepine 200 MG TABLET PO SCH ×2 (08:13→19:43)
[2022-12-15] MEDS: LevETIRAcetam 500 MG/ 5 ML UDC ORAL SOLN PO SCH ×2 (08:13→19:43)
[2022-12-15] MEDS: LACTATED RINGERS 1,000 ML IV SCH ×3 (08:14→22:59)
--- NOTE | 2022-12-15 09:25 | Progress Note - Surgery ---
Subjective Date Seen by a Provider: Dec 15, 2022 Time Seen by a Provider: 09:23 Subjective/Events-last exam Patient had bm overnight. Not really passing flatus he states. Abdomen still distended. NG tube clamped at this time. No n/v fever sweats chills shortness of breath or chest pain. Pain controlled. Objective Exam Vital Signs Date Time Temp Pulse Resp B/P (MAP) Pulse Ox O2 Delivery O2 Flow Rate FiO2 12/15/22 07:27 37.0 110 20 135/80 (98) 96 Room Air 12/15/22 03:15 36.6 100 18 128/81 (97) 97 Room Air 0.00 0.00 12/14/22 23:43 37.1 100 18 145/78 (100) 97 Room Air 0.00 0.00 12/14/22 20:39 37.1 98 12/14/22 20:00 Room Air 12/14/22 19:42 37.5 104 18 105/71 (82) 95 Room Air 12/14/22 17:58 37.8 110 18 130/73 (92) 97 Room Air 12/14/22 17:09 38.3 115 97 12/14/22 16:34 38.3 115 17 119/77 (91) 97 Room Air 12/14/22 12:27 36.8 100 19 129/78 (95) 97 Room Air I & O 12/15/22 07:00 Intake Total 3590 ml Output Total 1325 ml Balance 2265 ml Capillary Refill : Less Than 3 Seconds General Appearance: No Apparent Distress, Chronically ill, Thin HEENT: Other (NGT) Neck: Normal Inspection, Non Tender Respiratory: Lungs Clear, No Respiratory Distress Cardiovascular: No Murmur, Tachycardia (improved from yesterday though) Gastrointestinal: distended, tenderness (minimal incisional, c/d/i no signs of infection) Extremity: Normal Inspection, Non Tender Neurologic/Psychiatric: Alert, Oriented x3 Skin: Normal Color, Warm/Dry Lymphatic: No Adenopathy Results Lab Laboratory Tests 12/14/22 17:30: Urine Color YELLOW, Urine Clarity SL CLOUDY, Urine pH 6.0, Urine Specific [place] >=1.030, Urine Protein 2+H, Urine Glucose (UA) NEGATIVE, Urine Ketones 3+H, Urine Nitrite NEGATIVE, Urine Bilirubin 2+H, Urine Urobilinogen 0.2, Urine Leukocyte Esterase NEGATIVE, Urine RBC (Auto) TRACE-LH, Urine RBC 0-2, Urine WBC 2-5, Urine Crystals NONE, Urine Bacteria FEWH, Urine Casts PRESENT, Urine Hyaline Casts 0-2H, Urine Mucus SMALLH, Urine Culture Indicated YES Microbiology 12/10/22 MRSA Screen - Final, Complete MRSA not isolated Assessment/Plan Assessment/Plan Assessment/Plan s/p right colon resection postoperative ileus iv fluids clamp ng tube still distended, but had bm, await better bowel function and then advance diet pain control incentive spirometery. Lovenox scd's for dvt prophylaxis CITLALY DELUNA DO Dec 15, 2022 09:25
--- NOTE | 2022-12-15 10:04 | Physical Therapy Daily Note ---
PT Daily Note-Current Subjective Patient agrees to PT. Pain Numeric Pain Scale: 5-Moderate Pain Location: Medial, Lower Location Body Site: Abdomen Section J - Health Conditions 1. Rarely or not at all 2. Occasionally 3. Frequently 4. Almost constantly 8. Unable to answer Pain Effect on Sleep: 2 Pain Interference with Therapy: 2 Pain Interference w/Day-to-Day: 2 Mental Status Attachments: NG Tube, Rangel Catheter, IV Transfers SCALE: Activities may be completed with or without assistive devices. 2-Vurnmeoudh-iicyeft completes the activity by him/herself with no assistance from a helper. 5-Set-up or Clean-up Assistance-helper sets up or cleans up; patient completes activity. [place] assists only prior to or following the activity. 4-Supervision or Touching Assistance-helper provides verbal cues and/or touching/steadying and/or contact guard assistance as patient completes activity. Assistance may be provided throughout the activity or intermittently. 3-Partial/Moderate Assistance-helper does LESS THAN HALF the effort. [place] lifts, holds or supports trunk or limbs, but provides less than half the effort. 2-Substantial/Maximal Assistance-helper does MORE THAN HALF the effort. [place] lifts or holds trunk or limbs and provides more than half the effort. 7-Djyokgfps-idrdtw does ALL the effort. Patient does none of the effort to complete the activity. Or, the assistance of 2 or more helpers is required for the patient to complete the activity. If activity was not attempted, code reason: 7-Patient Refused. 9-Not Applicable-not attempted and the patient did not perform the activity before the current illness, exacerbation or injury. 10-Not Attempted due to Environmental Limitations-(lack of equipment, weather restraints, etc.). 88-Not Attempted due to Medical Conditions or Safety Concerns. Sit to Stand (QC): 4 Chair/Bpj-sd-Ygimt Xfer(QC): 4 Toilet Transfer (QC): 4 Weight Bearing Right Lower Extremity: Right Full Weight Bearing Left Lower Extremity: Left Full Weight Bearing Gait Training Distance: 300' Walk 10 feet (QC): 4 Walk 50 ft with 2 Turns(QC): 4 Walk 150 ft (QC): 4 Gait Assistive Device: FWW slow, steady gait sequence Assessment Patient tolerated treatment well and is in restroom having a BM. Patient is highly motivated with progress. PT [facility] Goals Trimmer Sawyer Goals PT [facility] Goals Time Frame: Jan 10, 2023 Roll Left & Right (QC): 6 Sit to Lying (QC): 6 Lying-Sitting on Side/Bed(QC): 6 Sit to Stand (QC): 6 Chair/Ykw-tp-Boxlt Xfer(QC): 6 Toilet Transfer (QC): 6 Does the Patient Walk: Yes Walk 10 feet (QC): 6 Walk 50ft with 2 Turns (QC): 6 Walk 150 ft (QC): 6 1 Step (curb) (QC): 4 4 Steps (QC): 3 PT Plan Treatment/Plan Treatment Plan: Continue Plan of Care Treatment Plan: Bed Mobility, Education, Functional Activity Dutch, Functional Strength, Group Therapy, Gait, Safety, Therapeutic Exercise, Transfers Treatment Duration: Jan 15, 2023 Frequency: 6 times per week Patient and/or Family Agrees t: Yes Time Time In: 925 Time Out: 935 DATE: Dec 15, 2022 Total Billed Treatment Time: 10 Total Billed Treatment 1 visit FA 10 min MILAGROS LAGUNA PT Dec 15, 2022 10:04
[2022-12-15 11:04] VITALS: BP 133/70
[2022-12-15] MEDS: morphine INJ 4 MG/ML 1 ML (VIAL/SYRINGE) IVP PRN ×2 (11:13→22:58)
[2022-12-15] MEDS: ENOXAPARIN 40 MG/0.4 ML SYRINGE SC SCH (14:16)
[2022-12-15 16:13] VITALS: BP 119/72
[2022-12-15] MEDS: TAMSULOSIN 0.4 MG (FLOMAX) CAP PO SCH ×2 (18:05→18:20)
[2022-12-15 19:23] VITALS: BP 129/74
[2022-12-15] MEDS: ACETAMINOPHEN 325 MG TABLET PO PRN (19:43)
[2022-12-15 23:07] VITALS: BP 111/63
[2022-12-16 03:23] VITALS: BP 129/73
[2022-12-16] MEDS: LACTATED RINGERS 1,000 ML IV SCH (06:16)
[2022-12-16 07:58] VITALS: BP 150/80
[2022-12-16] MEDS: FAMOTIDINE INJ 20MG/2ML VIAL IVP SCH ×2 (09:30→20:27)
[2022-12-16] MEDS: carBAMazepine 200 MG TABLET PO SCH ×2 (09:30→20:27)
[2022-12-16] MEDS: LevETIRAcetam 500 MG/ 5 ML UDC ORAL SOLN PO SCH ×2 (09:30→20:27)
--- NOTE | 2022-12-16 09:32 | Progress Note ---
DAVID FRASER 12/16/22 0932: Subjective Date Seen by a Provider: Dec 16, 2022 Time Seen by a Provider: 08:15 Subjective/Events-last exam Patient says he had 8 bowel movements overnight and three as of this morning. He has passed flatulence two times since yesterday. Patients abdomen is still distended- incision site looks good. NG tube clamped at this time. Patient says his pain is under control. He says that he has been ambulating, and going to the bathroom under his own strength. Patient complains of dry mouth that is irritating him, and is requesting discharge [facility]ODA. No n/v fever sweats chills shortness of breath or chest pain. Review of Systems General: No Chills, No Night Sweats, No Fatigue, No Malaise, No Appetite, No Other HEENT: No Head Aches, No Visual Changes, No Eye Pain, No Ear Pain, No Dysphasia, No Sinus Congestion, No Post Nasal Drip, No Sore Throat, No Other Pulmonary: No Dyspnea, No Cough, No Pleuritic Chest Pain, No Other Cardiovascular: No: Chest Pain, Palpitations, Orthopnea, Paroxysmal Noc. Dyspnea, Edema, Lt Headedness, Other Gastrointestinal: No: Nausea, Vomiting, Abdominal Pain, Diarrhea, Constipation, Melena, Hematochezia, Other Genitourinary: No Dysuria, No Frequency, No Incontinence, No Hematuria, No Retention, No Other Musculoskeletal: No: other, neck pain, shoulder pain, arm pain, back pain, hand pain, leg pain, foot pain Neurological: No: Weakness, Numbness, Incoordination, Change in speech, Confusion, Seizures, Other Focused Exam Sepsis Stage: Ruled Out Respiratory: No Chest Non Tender, No Lungs Clear, No Normal Breath Sounds, No No Accessory Muscle Use, No No Respiratory Distress, No Accessory Muscle Use, No Crackles, No Decreased Breath Sounds, No Expiration, No Inspiration, No Pleural Rub, No Rales, No Respiratory Distress, No Rhonci, No Stridor, No Wheezing, No Other Cardiovascular: No Regular Rate, Rhythm, No No Edema, No No Gallop, No No JVD, No No Murmur; Normal Peripheral Pulses; No Bradycardia, No Diastolic Murmur, No Systolic Murmur, No Extra Beats, No Friction Rub, No Gallop/S3, No Gallop/S4, No Irregularly Irregular, No JVD, No Tachycardia, No Other Peripheral Pulses: 2+ Radial Pulses (R), 2+ Radial Pulses (L) Skin: normal color Objective Exam Last Set of Vital Signs Vital Signs Date Time Temp Pulse Resp B/P (MAP) Pulse Ox O2 Delivery O2 Flow Rate FiO2 12/16/22 07:58 36.9 96 20 150/80 (103) 94 Room Air 12/16/22 03:23 0.00 0.00 Capillary Refill : Less Than 3 Seconds I&O Intake and Output 12/16/22 00:00 Intake Total 1000 ml Output Total 925 ml Balance 75 ml Intake Oral 0 ml IV Total 1000 ml Output Urine Total 650 ml Gastric Drainage Total 275 ml # Bowel Movements 3 General: Alert, Oriented X3, Cooperative, No Acute Distress HEENT: Atraumatic, PERRLA Neck: Supple, No JVD, No Thyromegaly Lungs: Normal Air Movement Results Lab Microbiology 12/14/22 Urine Culture - Final, Complete NO GROWTH 12/14/22 Blood Culture - Preliminary, Resulted No growth 12/10/22 MRSA Screen - Final, Complete MRSA not isolated Assessment/Plan Assessment/Plan Assess & Plan/Chief Complaint Assessment/Plan s/p right colon resection postoperative ileus iv fluids clamp ng tube Abdomen still distended but had sevewral bowel movements, start on clear liquids, and remove NG tube Low urine output (150 mL) pain control Continue to work with staff on ambulating Lovenox scd's for dvt prophylaxis CITLALY ANGEL DO 12/17/22 1148: Subjective Subjective/Events-last exam Having bowel function and passing flatus. Pain controlled. Abdomen still distended some. Ambulating and using IS. Denies n/v fever sweats chills shortness of breath or chest pain. Objective Exam General: Alert, Oriented X3, Cooperative, No Acute Distress HEENT: Atraumatic, PERRLA Neck: Supple, No JVD Lungs: Clear to Auscultation, Normal Air Movement Heart: Regular Rate Abdomen: Soft, Other (slight distention, incision c/d/i) Skin: No Rashes, No Breakdown Neuro: Normal Speech, Strength at 5/5 X4 Ext Psych/Mental Status: Mental Status NL, Mood NL Assessment/Plan Assessment/Plan Assess & Plan/Chief Complaint s/p right colon resection postoperative ileus iv fluids dc ng/flores Abdomen still distended but had sevewral bowel movements, start on clear liquids, and remove NG tube pain control Continue to work with staff on ambulating Lovenox scd's for dvt prophylaxis home soon Supervisory-Addendum Brief Verification & Attestation Participated in pt care: history, MDM, physical Personally performed: exam, history, MDM, supervision of care Care discussed with: Medical Student Procedures: n/a Results interpretation: Verified all documentation Verification and Attestation of Medical Student E/M Service A medical student performed and documented this service in my presence. I reviewed and verified all information documented by the medical student and made modifications to such information, when appropriate. I personally performed the physical exam and medical decision making. Citlaly Angel, Dec 16, 2022,11:48 DAVID FRASER Dec 16, 2022 09:32 CITLALY ANGEL DO Dec 17, 2022 11:48
--- NOTE | 2022-12-16 10:51 | Physical Therapy Daily Note ---
PT Daily Note-Current Subjective Patient agrees to PT. Pain Numeric Pain Scale: 5-Moderate Pain Location: Medial, Lower Location Body Site: Abdomen Section J - Health Conditions 1. Rarely or not at all 2. Occasionally 3. Frequently 4. Almost constantly 8. Unable to answer Pain Effect on Sleep: 2 Pain Interference with Therapy: 2 Pain Interference w/Day-to-Day: 2 Mental Status Patient Orientation: Normal For Age Attachments: Rangel Catheter, IV Transfers SCALE: Activities may be completed with or without assistive devices. 0-Qswxistgdc-imgfpmz completes the activity by him/herself with no assistance from a helper. 5-Set-up or Clean-up Assistance-helper sets up or cleans up; patient completes activity. [place] assists only prior to or following the activity. 4-Supervision or Touching Assistance-helper provides verbal cues and/or touching/steadying and/or contact guard assistance as patient completes activity. Assistance may be provided throughout the activity or intermittently. 3-Partial/Moderate Assistance-helper does LESS THAN HALF the effort. [place] lifts, holds or supports trunk or limbs, but provides less than half the effort. 2-Substantial/Maximal Assistance-helper does MORE THAN HALF the effort. [place] lifts or holds trunk or limbs and provides more than half the effort. 4-Qjywcrprs-gupiqn does ALL the effort. Patient does none of the effort to complete the activity. Or, the assistance of 2 or more helpers is required for the patient to complete the activity. If activity was not attempted, code reason: 7-Patient Refused. 9-Not Applicable-not attempted and the patient did not perform the activity before the current illness, exacerbation or injury. 10-Not Attempted due to Environmental Limitations-(lack of equipment, weather restraints, etc.). 88-Not Attempted due to Medical Conditions or Safety Concerns. Lying to Sitting/Side of Bed(Q: 4 Sit to Stand (QC): 4 Chair/Nyk-ur-Kpwhc Xfer(QC): 4 Toilet Transfer (QC): 4 Weight Bearing Right Lower Extremity: Right Full Weight Bearing Left Lower Extremity: Left Full Weight Bearing Gait Training Distance: 300' Walk 10 feet (QC): 4 Walk 50 ft with 2 Turns(QC): 4 Walk 150 ft (QC): 4 Gait Assistive Device: FWW Assessment Patient tolerated treatment well. Physician in during session. PT Lost Charge Card Clerk Goals Lost Charge Card Clerk Goals PT [facility] Goals Time Frame: Jan 10, 2023 Roll Left & Right (QC): 6 Sit to Lying (QC): 6 Lying-Sitting on Side/Bed(QC): 6 Sit to Stand (QC): 6 Chair/Del-hj-Fyldt Xfer(QC): 6 Toilet Transfer (QC): 6 Does the Patient Walk: Yes Walk 10 feet (QC): 6 Walk 50ft with 2 Turns (QC): 6 Walk 150 ft (QC): 6 1 Step (curb) (QC): 4 4 Steps (QC): 3 PT Plan Treatment/Plan Treatment Plan: Continue Plan of Care Treatment Plan: Bed Mobility, Education, Functional Activity Dutch, Functional Strength, Group Therapy, Gait, Safety, Therapeutic Exercise, Transfers Treatment Duration: Jan 15, 2023 Frequency: 6 times per week Patient and/or Family Agrees t: Yes Time Time In: 815 Time Out: 826 DATE: Dec 16, 2022 Total Billed Treatment Time: 11 Total Billed Treatment 1 visit FA 11 min MILAGROS LAGUNA PT Dec 16, 2022 10:51
[2022-12-16 11:36] VITALS: BP 139/86
[2022-12-16] MEDS: ENOXAPARIN 40 MG/0.4 ML SYRINGE SC SCH (14:33)
[2022-12-16 15:34] VITALS: BP 142/78
[2022-12-16] MEDS: TAMSULOSIN 0.4 MG (FLOMAX) CAP PO SCH (18:41)
[2022-12-16 19:04] VITALS: BP 133/77
[2022-12-16 23:07] VITALS: BP 109/58
[2022-12-17 03:45] VITALS: BP 88/49
[2022-12-17] MEDS: HYDROcodone/ACETAMINOPHEN 5 MG/325 MG TABLET PO PRN (06:50)
--- NOTE | 2022-12-17 07:31 | Progress Note ---
RADHA VARGAS 12/17/22 0730: Subjective Date Seen by a Provider: Dec 17, 2022 Time Seen by a Provider: 07:15 Subjective/Events-last exam Patient had bm overnight that had particulate matter. He states had flatus 2x yesterday. Abdomen still distended. NG tube removed yesterday. No n/v fever sweats chills shortness of breath or chest pain. Pt complains of sore nonradiating pain at incision site. Nurses say he has been tolerating meds. He is ambulating more often and is moving to and from the bathroom. Review of Systems General: No Chills, No Night Sweats, No Fatigue, No Malaise, No Appetite, No Other HEENT: No Head Aches, No Visual Changes, No Eye Pain, No Ear Pain, No Dysphasia, No Sinus Congestion, No Post Nasal Drip, No Sore Throat, No Other Pulmonary: No Dyspnea, No Cough, No Pleuritic Chest Pain, No Other Cardiovascular: No: Chest Pain, Palpitations, Orthopnea, Paroxysmal Noc. Dyspnea, Edema, Lt Headedness, Other Gastrointestinal: No: Nausea, Vomiting, Abdominal Pain, Diarrhea, Constipation, Melena, Hematochezia, Other Genitourinary: No Dysuria, No Frequency, No Incontinence, No Hematuria, No Retention, No Other Musculoskeletal: No: other, neck pain, shoulder pain, arm pain, back pain, hand pain, leg pain, foot pain Neurological: No: Weakness, Numbness, Incoordination, Change in speech, Confusion, Seizures, Other Focused Exam Sepsis Stage: Ruled Out Respiratory: No Chest Non Tender, No Lungs Clear, No Normal Breath Sounds, No No Accessory Muscle Use, No No Respiratory Distress, No Accessory Muscle Use, No Crackles, No Decreased Breath Sounds, No Expiration, No Inspiration, No Pleural Rub, No Rales, No Respiratory Distress, No Rhonci, No Stridor, No Wheezing, No Other Cardiovascular: No Regular Rate, Rhythm, No No Edema, No No Gallop, No No JVD, No No Murmur, No Normal Peripheral Pulses, No Bradycardia, No Diastolic Murmur, No Systolic Murmur, No Extra Beats, No Friction Rub, No Gallop/S3, No Gallop/S4, No Irregularly Irregular, No JVD; Tachycardia; No Other Objective Exam Last Set of Vital Signs Vital Signs Date Time Temp Pulse Resp B/P (MAP) Pulse Ox O2 Delivery O2 Flow Rate FiO2 12/17/22 03:45 101 18 88/49 (62) 93 12/16/22 23:07 37.3 Room Air 0.00 0.00 Capillary Refill : Less Than 3 Seconds I&O Intake and Output 12/17/22 00:00 Intake Total 2220 ml Output Total 650 ml Balance 1570 ml Intake Oral 220 ml IV Total 2000 ml Output Urine Total 650 ml # Bowel Movements 2 General: Alert, Oriented X3, Cooperative HEENT: Atraumatic Neck: No JVD Lungs: Normal Air Movement Extremities: Other (edema of L UE) Neuro: Normal Speech Psych/Mental Status: Mental Status NL, Mood NL Results Lab Microbiology 12/14/22 Urine Culture - Final, Complete NO GROWTH 12/14/22 Blood Culture - Preliminary, Resulted No growth 12/10/22 MRSA Screen - Final, Complete MRSA not isolated Assessment/Plan Assessment/Plan Assess & Plan/Chief Complaint iv fluids continue on liquid diet still distended, but had bm overnight, monitor bowel function and continue to advance diet pain control at incision site Lovenox scd's for dvt prophylaxis Prepare to discharge CAMERON ANGELTT Chandra DO 12/17/22 1349: Subjective Subjective/Events-last exam Having bowel function. Pain controlled. Tolerating diet. Denies n/v fever sweats chills shortness of breath or chest pain. Ambulating. Wanting to go home. Objective Exam General: Alert, Oriented X3, Cooperative HEENT: Atraumatic Neck: Supple, No JVD Lungs: Normal Air Movement Heart: Regular Rate Abdomen: Soft, Other (incision c/d/i no signs of infection, minimal distention) Extremities: Other (edema of L UE) Skin: No Rashes, No Breakdown Neuro: Normal Speech Psych/Mental Status: Mental Status NL, Mood NL Assessment/Plan Assessment/Plan Assess & Plan/Chief Complaint s/p right colon resection postoperative ileus tolerating diet advance pain control incentive spirometery. Lovenox scd's for dvt prophylaxis dc home Supervisory-Addendum Brief Verification & Attestation Participated in pt care: history Personally performed: exam, history, MDM, supervision of care Care discussed with: Medical Student Procedures: n/a Results interpretation: Verified all documentation Verification and Attestation of Medical Student E/M Service A medical student performed and documented this service in my presence. I reviewed and verified all information documented by the medical student and made modifications to such information, when appropriate. I personally performed the physical exam and medical decision making. Citlaly Angel, Dec 17, 2022,13:49 RADHA VARGAS Dec 17, 2022 07:30 CITLALY ANGEL DO Dec 17, 2022 13:49
[2022-12-17 08:15] VITALS: BP 116/81
[2022-12-17] MEDS: LevETIRAcetam 500 MG/ 5 ML UDC ORAL SOLN PO SCH (08:58)
[2022-12-17] MEDS: carBAMazepine 200 MG TABLET PO SCH (09:01)
[2022-12-17] MEDS: FAMOTIDINE INJ 20MG/2ML VIAL IVP SCH (09:04)
[2022-12-17 11:42] VITALS: BP 146/78
[2022-12-17] MEDS ORDERED: ACHD5005 PO ×2 (11:50→13:04)
[2022-12-17] MEDS ORDERED: DOCU-143 PO (11:50)
--- NOTE | 2022-12-17 11:51 | Discharge Inst-Simple/Standard ---
Discharge Inst-Standard Discharge Medications New, Converted or Re-Newed RX: Transmitted to Pharmacy Patient Instructions/Follow Up Plan of Care/Instructions/FU: 2 weeks Stanley Activity as Tolerated: No Discharge Diet: Regular Diet Other Inst to Patient Follow up Appt: Make appointment for 2 week. Instructions: No lifting greater than 10 pounds. No strenuous activity. May shower in 24 hours, no tub bath or soaking. Use incentive spirometer at home as directed. No Smoking Skin/Wound Care: Keep incision clean and dry Symptoms to Report: Appetite Changes, Extremity Discoloration, Numbness/Tingling, Swelling Increased, Bleeding Excessive, Eyesight Changes, Pain Increased, Urine Color Change, Constipation(Persistent), Fever over 101 degree F, Pain/Pressure in chest, Urinating Difficulty, Cough Up/Vomit Blood, Heart Beat Irreg/Pounding, Pain/Pressure in jaw, Vaginal Bleeding Increase, Cramps in feet or legs, Lightheadedness, Pain/Pressure in shoulder, Diarrhea(Persistent), Memory Changes Suddenly, Questions/Concerns, Weight gain consecutive days, Dizziness/Fainting, Nausea/Vomiting, Shortness of Breath, Weight gain over 2 pounds If questions or concerns contact your physician Or seek help at emergency department. CITLALY DELUNA DO Dec 17, 2022 11:51
[2022-12-17] MEDS: ENOXAPARIN 40 MG/0.4 ML SYRINGE SC SCH (14:00)
[2022-12-17 16:06] VITALS: BP 146/78
--- NOTE | 2022-12-22 13:01 | Physician Query Clarification ---
PQ-Link Path Diagnosis Admission/Discharge Admission Date: Dec 10, 2022 at 05:50 Discharge Date: Dec 17, 2022 at 16:08 Dr. 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 Please document a response in Progress Notes or Discharge Summary. 1. 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 2. 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 3. Other, with explanation of the clinical findings. 4. Clinically undetermined, no explanation for the clinical findings. Is is appropriate for a provider to add additional documentation (addenda) to the record to explain the evaluation & care up to 30 days post-discharge. See [facility] and Patient Record Guidelines below. The [facility] Chapter Record of Care, Standard; RC.01.03.01EP 1: "The hospital has a written policy that required timely entry of information into the medical record." According to [facility] Patient Record Guidelines, ARTICLE XXI. CORRECTIONS AND ADDENDA, Modifications (addenda amendments, corrections and retractions) should be made timely and no later than regulatory requirements for record completion (i.e. 30 days post discharge). Official coding guidelines require coders to query the physician for agreement with pathology findings that occur during the encounter. Coders are not allowed to pull information directly from the path reports. PHYSICIAN RESPONSE Pathology Report Findings: Yes,agree w/path dx as documented In responding to this query, please exercise your independent professional judgment. The purpose of this communication is to more accurately reflect the complexity of your patients condition. The fact that a question is asked does not imply that any particular answer is desired or expected. Thank you for your timely response to this clarification. Requestors name: Rochelle THIS PHYSICIAN QUERY FORM IS A PERMANENT PART OF THE MEDICAL RECORD ROCHELLE BASS Dec 22, 2022 13:01 CITLALY ANGEL DO Dec 22, 2022 16:45
== END 2022-12-17 16:08 | DRG 330 ==
LOC: 4TH 05:50 → SURG 05:51 → 4TH 11:22
PROVIDERS: ADMIT Surgery; ATTEND Surgery
PROC: 0WBH0ZZ Excision of Retroperitoneum, Open Approach (ICD-10-PCS; 2022-12-10)
PROC: 0DTF0ZZ Resection of Right Large Intestine, Open Approach (ICD-10-PCS; principal; 2022-12-10 08:21)
DX: C18.8 Malignant neoplasm of overlapping sites of colon (principal); C78.6 Secondary malignant neoplasm of retroperitoneum and peritoneum; K91.89 Other postprocedural complications and disorders of digestive system; K56.7 Ileus, unspecified; D63.0 Anemia in neoplastic disease; G40.909 Epilepsy, unspecified, not intractable, without status epilepticus; M81.0 Age-related osteoporosis without current pathological fracture; I10 Essential (primary) hypertension; K59.09 Other constipation; N40.0 Benign prostatic hyperplasia without lower urinary tract symptoms; H54.3 Unqualified visual loss, both eyes; M19.90 Unspecified osteoarthritis, unspecified site; H91.90 Unspecified hearing loss, unspecified ear; R00.0 Tachycardia, unspecified; Z79.899 Other long term (current) drug therapy
CPT/HCPCS: 36415; 71045; 74018; 80048; 80053; 81000; 83735; 85007; 85027; 87040; 87081; 87088; 88309; 94664; 94760

== ENCOUNTER 2023-01-29 05:41 | Outpatient (CLI) | payer MEDICARE, MEDICAID ==
[~2023-01-29] VITALS: Ht 165.1 cm; Wt 56.4 kg
[2023-01-29] MEDS ORDERED: NEOM500T12 PO (14:06)
[2023-01-29] MEDS ORDERED: METR-143 PO (14:06)
== END 2023-01-30 07:48 | disposition home or self-care (01) ==
LOC: PREOP 05:41
PROVIDERS: ATTEND Surgery
DX: Z01.818 Encounter for other preprocedural examination (principal)

== ENCOUNTER 2023-02-02 07:21 | Day surgery (SDC) | payer MEDICARE, MEDICAID ==
[2023-02-02] VITALS (7 sets, daily range): BP systolic 125–147; BP diastolic 70–84
[~2023-02-02] VITALS: Ht 165.1 cm; Wt 56.4 kg
[~2023-02-02 07:21] MED LIST changes: +METR-143 PO; +NEOM500T12 PO
[2023-02-02] MEDS ORDERED: LACTATED RINGERS 1,000 ML 1,000 ML IV PRN (07:30)
[2023-02-02] MEDS ORDERED: ceFAZolin INJECTION 2,000 MG in NS (IVPB) 50 ML 50 ML IV ONE (07:30)
--- NOTE | 2023-02-02 07:53 | Progress Note-Pre Operative ---
Pre-Operative Progress Note Date H&P Reviewed: Feb 02, 2023 Time H&P Reviewed: 07:53 History & Physical: H&P Reviewed, Patient Examed, No changes noted Pre-Operative Diagnosis: adenocarcinoma colon CITLALY DELUNA DO Feb 02, 2023 07:53
[2023-02-02] MEDS ORDERED: HEParin (CENTRAL IV FLUSH) 500 UNIT/5 ML SYR ONE (08:01)
[2023-02-02] MEDS ORDERED: 0.9% SODIUM CHLORIDE PF INJ 20 ML VIAL ONE (08:01)
[2023-02-02] MEDS ORDERED: LIDOCAINE/EPI 1%-1:200,000 (XYLOCAINE) 30 ML VIAL ONE (08:01)
--- NOTE | 2023-02-02 09:29 | Progress Note-Post Operative ---
Post-Operative Progess Note Surgeon (s)/Mid Level Business Analyst (s) Surgeon CITLALY DELUNA DO Mid Level Business Analyst: NA Pre-Operative Diagnosis adenocarcinoma colon Post-Operative Diagnosis SAME Procedure & Operative Findings Date of Procedure 02/02/23 Procedure Performed/Findings PROCEDURE: Right internal jugular port placement using ultrasound guidance. COMPLICATIONS: None. INDICATIONS: The patient is a 78 year old male colon cancer. Patient understands the risks and benefits of port placement and wished to proceed with the procedure. Consent was signed on the chart. PROCEDURE: The patient was taken to the operating suite, was prepped and draped in the sterile fashion. A surgical pause was performed. Ultrasound was used to locate the internal jugular vein. Once located anesthetic was infiltrated above it. Using micro-access kit, the right internal vein was accessed. Dark nonpulsatile blood was withdrawn. The wire was inserted. Fluoroscopy assured proper placement. The needle was removed. The micro-access dilator was advanced over the wire and the wire was removed. The regular wire was inserted and fluoroscopy assured proper placement. The wire was then secured. Local anesthetic was used to anesthetize from the neck for tunneling down to the right chest and for pocket creation. A 15 blade scalpel was used to make an incision over the right chest. Cautery was used to dissect down to the pectoral fascia. A pocket was created with blunt dissection. The dilator sheath was then advanced over the wire under fluoroscopy and the dilator and wire were removed. The Groshong catheter was inserted through the sheath and the sheath was then removed. The Groshong wire was removed. The catheter was then tunneled to the right chest pocket. Fluoroscopy was used to cut to length and this was then attached to the port which was then placed within the pocket. The port was then accessed without difficulty. It was then flushed with saline and then heparin. The subcutaneous tissues were then reapproximated using 3-0 Vicryl. The areas were then washed and dried. Skin Affix was placed over incision. The insertion point of the neck Skin Affix was placed over the incision. The patient tolerated the procedure well without complication and was taken to recovery room in stable condition. Chest x-ray is pending. Anesthesia Type mac c local Estimated Blood Loss Estimated blood loss (mL): minimal Specimens/Packing Specimens Removed CITLALY Wheeler DO Feb 02, 2023 09:29
--- NOTE | 2023-02-02 09:31 | Discharge Inst-Simple/Standard ---
Discharge Inst-Standard Patient Instructions/Follow Up Plan of Care/Instructions/FU: 2 weeks Stanley Activity as Tolerated: No Discharge Diet: Regular Diet Other Inst to Patient Follow up Appt: Make appointment for 2 week. Instructions: No lifting greater than 10 pounds. No strenuous activity. May shower in 24 hours, no tub bath or soaking. Use incentive spirometer at home as directed. No Smoking Skin/Wound Care: You have special glue over your incision that will fall off on it's own. Symptoms to Report: Appetite Changes, Extremity Discoloration, Numbness/Tingling, Swelling Increased, Bleeding Excessive, Eyesight Changes, Pain Increased, Urine Color Change, Constipation(Persistent), Fever over 101 degree F, Pain/Pressure in chest, Urinating Difficulty, Cough Up/Vomit Blood, Heart Beat Irreg/Pounding, Pain/Pressure in jaw, Vaginal Bleeding Increase, Cramps in feet or legs, Lightheadedness, Pain/Pressure in shoulder, Diarrhea(Persistent), Memory Changes Suddenly, Questions/Concerns, Weight gain consecutive days, Dizziness/Fainting, Nausea/Vomiting, Shortness of Breath, Weight gain over 2 pounds If questions or concerns contact your physician Or seek help at emergency department. CITLALY DELUNA DO Feb 02, 2023 09:31
[2023-02-02] MEDS ORDERED: ONDANSETRON INJECTION 4 MG/2 ML (SDV) IVP PRN (09:45)
[2023-02-02] MEDS ORDERED: fentaNYL INJECTION 100 MCG/2 ML VIAL IVP ONE (09:45)
--- NOTE | 2023-02-02 09:50 | Anesthesia-General Post-Op ---
MAC Patient Condition Mental Status/LOC: Same as Preop Cardiovascular: Satisfactory Nausea/Vomiting: Absent Respiratory: Satisfactory Pain: Controlled Complications: Absent Post Op Complications Complications None Follow Up Care/Instructions Patient Instructions None needed. Anesthesiology Discharge Order Discharge Order Patient is doing well, no complaints, stable vital signs, no apparent adverse anesthesia problems. No complications reported per nursing. SIMI RAUSCH CRNA Feb 02, 2023 09:50
--- NOTE | 2023-02-02 09:54 | Diagnostic Imaging Report ---
INDICATION: Port placement. FINDINGS: Right internal jugular [id number] catheter now overlies right hemithorax and has its tip in superior vena cava. There is mild cardiomegaly. Some right perihilar atelectasis and/or pneumonitis. There is no pleural effusion or pneumothorax. Mediastinum is unremarkable. IMPRESSION: Cardiomegaly and some right perihilar atelectasis and/or pneumonitis. Infuse Port-A-Cath overlies right hemithorax and has its tip in superior vena cava. Dictated by: Dictated on workstation # [id number]
--- NOTE | 2023-02-02 17:45 | Diagnostic Imaging Report ---
INDICATION: Fluoroscopic guidance provided during Port-A-Cath placement. COMPARISON: None. Total fluoroscopy time: 22 seconds Total number of fluoroscopic images saved: 1 FINDINGS: Fluoroscopic guidance was provided during Port-A-Cath placement. Image provided shows right-sided internal jugular venous approach. The tip terminates within the right innominate vein versus high SVC. Evaluation for pneumothorax is suboptimal given fluoroscopic modality. Please note, interpreting radiologist was not present during the procedure. IMPRESSION: 1. Fluoroscopic guidance provided during Port-A-Cath placement. Dictated by: Dictated on workstation # [id number]
== END 2023-02-02 10:45 | disposition home or self-care (01) ==
LOC: SDC 07:21
PROVIDERS: ATTEND Surgery
DX: C18.9 Malignant neoplasm of colon, unspecified (principal); I87.2 Venous insufficiency (chronic) (peripheral); Z87.891 Personal history of nicotine dependence
CPT/HCPCS: 71045; 76000; 87081